=== PATIENT | female | born 1940 | race Caucasian/White ===

== ENCOUNTER 2016-08-05 13:38 | Emergency (ER) | payer MEDICARE ==
[~2016-08-05] VITALS: Wt 85.7 kg
[~2016-08-05 13:38] MED LIST: 50% Dextro25 GM/50 M IV; ADVAIR 250/501 EA INH; ALLERGY RELIEF10 M1; AMLODIPINE BESY1 TAB PO; AMLODIPINE10 MG; AMLODIPINE10 MG PO; ASCRIPTIN ENTER81 MG PO; ASPIRIN81 M1 PO; BUMETANIDE2 MG PO; BUMEX2 MG PO; CARVEDILOL6.25 MG; CATAPRES T0.3 MG/24 TD; CATAPRES-T0.1 MG/24 TD; CLARITIN10 MG PO; CLONIDINE0.2 MG; CLONIDINE0.2 MG PO; CLOPIDOGREL75 MG PO; COLACE100 MG PO; COREG6.25 MG PO; CRESTOR20 MG; CRESTOR20 MG PO; DETROL LA4 MG PO; DETROL1 MG PO; DIOVAN160 M1 PO; DULCOLAX10 MG R; DULCOLAX5 MG PO; DUONEB 3ML 3 MG/3 ML INH; ENALAPRIL20 MG PO; FERROUS SULFATE1 GRA; HYDROCODONE BIT1 T11 PO; LANTUS100 U/ML SC; LASIX20 MG; LASIX20 MG PO; LEVAQUIN250 MG PO; LEVEMIR100 U/ML SC; LISINOPRIL40 MG PO; LISINOPRIL5 MG PO; LORATADINE10 M1 PO; Lopressor25 MG PO; METOLAZONE2.5 MG PO; MIRALAX POWDER17 GM; MOM30 M1 PO; MORPHINE SULF2 MG/M1 IV; MUCINEX DM 30/61 TAB; MUCINEX DM 60 M1 TER PO; MULTIVITAMIN1 CTB PO; NORVASC10 MG PO; NORVASC5 MG PO; NOVOLOG1 UNIT/0.0 SC; OMEPRAZOLE10 MG PO; OMNICEF300 MG PO; PERCOCET 325 MG1 TA2 PO; PHOSLO667 M1 PO; PLAVIX75 MG PO; PRAVACHOL40 MG PO; PRILOSEC10 MG; PRILOSEC10 MG PO; PROAIR HFA0.09 MG/AC IH; PROAIR HFA0.09 MG/AC INH; PROTONIX40 MG PO; REGLAN10 MG PO; RESTORIL15 MG; RESTORIL15 MG PO; Rocaltrol0.25 MCG PO; TYLENOL325 M1 PO; TYLENOL650 MG R; VASOTEC10 MG PO; VITAMIN D1000 IU PO; VITAMIN D32000 I1 PO; ZAROXOLYN2.5 MG PO; ZEMPLAR1 MCG PO; ZOFRAN ODT4 MG SL; ZOFRAN2 MG/ML IV
[2016-08-05 13:42] VITALS: BP 153/80
[2016-08-05] MEDS ORDERED: NAPROSYN500 MG PO (14:13)
== END 2016-08-05 15:57 | disposition home or self-care (01) ==
LOC: ED 13:38
DX: S80.01XA Contusion of right knee, initial encounter (principal); R03.0 Elevated blood-pressure reading, without diagnosis of hypertension; N18.6 End stage renal disease; Z90.49 Acquired absence of other specified parts of digestive tract; Z90.710 Acquired absence of both cervix and uterus; Z98.890 Other specified postprocedural states; Z86.73 Personal history of transient ischemic attack (TIA), and cerebral infarction without residual deficits; Z79.82 Long term (current) use of aspirin; Z79.899 Other long term (current) drug therapy; W19.XXXA Unspecified fall, initial encounter; Y93.89 Activity, other specified; Y92.89 Other specified places as the place of occurrence of the external cause; Y99.9 Unspecified external cause status

== ENCOUNTER 2016-09-17 19:10 | Inpatient (IN) | payer MEDICARE ==
[~2016-09-17] VITALS: Ht 152.4 cm; Wt 74.4 kg
--- NOTE | ~2016-09-17 | CON ---
[place], [place] REPORT OF CONSULTATION NAME: YOSSI MULLINS UNIT #: [id number] ROOM: 424 DOCTOR: CAROL BOWDENWILDA BIRTHDATE: [birth year] DOS: 09/25/2016 HISTORY OF PRESENT ILLNESS: The patient has initially presented with suspected volvulus versus intussusception on radiologic findings, but clinically was unconvincing. However, the patient has been addressed and radiologic assessment was done initially. White blood cell was 13, H and H of 10 and 30, macrocytic indices. BUN and creatinine 35 and 5.4, GFR of 10. Liver function tests essentially unremarkable. Electrolytes borderline balanced. Arterial blood gases pH 7.4 plus. Lactic acid was 2.5, blood cultures were negative. CTA of the chest, significant artifact. CTA of the abdomen without contrast, small bowel, suspected intussusception was described, but however, there was not substantiated diffuse densities. High density liver could be secondary to hemochromatosis has been noticed. End-stage renal disease with renal cortical atrophy has been noticed. Serum ferritin 2691 consistent with possible hemochromatosis noticed. However, she is borderline anemic. Subsequent KUB of the abdomen, no evidence of intussusception. PAST MEDICAL HISTORY: Obesity, COPD, atrial fibrillation, respiratory insufficiency, diabetes mellitus, TIAs, CVA. PAST SURGICAL HISTORY: Hysterectomy, appendectomy, cholecystectomy. SOCIAL HISTORY: Nonsmoker, nonalcohol consumer any longer. FAMILY HISTORY: Noncontributory. ALLERGIES: To no known medications. MEDICATIONS: Medication list has been reviewed. REVIEW OF SYSTEMS: HEENT: Denies double vision, blurred vision. RESPIRATORY: Denies acute shortness of breath. CARDIOVASCULAR: Denies acute chest pain. DIGESTIVE SYSTEM: Initial nausea, initial abdominal distress, subsequent resolution of the above. No nausea, vomiting. Actually, she has had multiple bowel movements that have been normal. PHYSICAL EXAMINATION: HEENT: Head normocephalic, nontraumatic. Mouth and buccal mucosa benign. NECK: Supple, no thyromegaly. CHEST: Symmetric anatomy, equal expansion. No wheeze, no rhonchi. HEART: Atrial fibrillation, moderate ventricular response. ABDOMEN: Obese, soft. No hepato-organomegaly. Bowel sounds present. EXTREMITIES: No cyanosis, no pedal edema. NEUROLOGIC: Alert and oriented. LABORATORY DATA: Labs reviewed. Records reviewed. Data reviewed. IMPRESSION: Resolved suspected intussusception. The patient without nausea or [place], [place] REPORT OF CONSULTATION NAME: YOSSI MULLINS UNIT #: [id number] ROOM: [facility] DOCTOR: CAROL BOWDEN,WILDA BIRTHDATE: [birth year] vomiting, without bloody bowel movement, regular bowel movement a few times. Other adjunctive diagnoses as outlined in the paragraph of past medical and surgical history. Dense liver, suspected hemochromatosis, serum iron level has to be obtained. Serum ferritin has been extremely high. On the other hand, she is borderline anemic. No evidence of other infiltration of the main organs including pancreas was noticed. PLAN AND DISCUSSION: Supportive management. Feeding soft diet today and clinical reassessment. WILDA MEDINA MD CM:CONSTR:REPORT OF CONSULTATION 1727 09/26/16 1035 interface
--- NOTE | ~2016-09-17 | CON ---
[place], [place] REPORT OF CONSULTATION NAME: YOSSI MULLINS UNIT #: [id number] ROOM: 424 DOCTOR: KAVEH BOWDENANTIONEJOHN BIRTHDATE: [birth year] DOS: 09/19/2016 REQUESTING PHYSICIAN: Dr. Alba. REASON FOR CONSULTATION: Atrial fibrillation. ASSESSMENT: 1. Current presentation for shortness of breath, dyspnea on exertion. 2. Cough with evidence of elevated white count along with left shift. 3. Left lower lobe infiltrate on CT scan of the chest. 4. Large left pleural effusion. 5. History of transient ischemic attack and cerebrovascular accident. 6. Consult for new onset atrial fibrillation. 7. Recent echocardiogram showing normal ejection fraction read by Dr. Marcos. 8. Obesity. 9. Diabetes. 10. History of chronic obstructive pulmonary disease/emphysema. 11. End-stage renal disease, on dialysis. PLAN: 1. Cycle cardiac enzymes. 2. Proceed with echocardiogram. 3. Lexiscan stress test will be considered after patient recovers from her current pulmonary status. 4. Stop aspirin. 5. Continue with heparin. 6. Initiate Coumadin for target INR between 2 and 3. 7. Stop heparin when INR is over 2. 8. Lopressor 25 mg every6 hours with holding parameters. 9. Consider sleep study. 10. Antibiotics/ steroids were already given. HISTORY OF PRESENT ILLNESS: The patient is a pleasant 75-year-old female, unknown to our practice, who was referred by Dr. Alba for further evaluation of an incidental finding of atrial fibrillation. Apparently, the patient came in with shortness of breath, dyspnea on exertion, currently on a BiPAP with inability to talk and not much history was obtained. Most of the history I have heard was obtained from previous notes. On her current admission, the patient apparently was placed on BiPAP. Still, she is unable to communicate and difficult for her to talk. She is in the dialysis unit and 2 liters will be taken out hopefully today. Apparently, I by simple communication patient denies any chest pain, chest pressure, heaviness or tightness. No symptomatic palpitation. Decreased appetite. No significant weight change. The patient has a limited functional capacity, but overall stable prior to her current presentation. The patient admit to fever and chills. PAST MEDICAL HISTORY: As detailed in my assessment. SOCIAL HISTORY: No current tobacco, alcohol or illicit drug abuse. [place], [place] REPORT OF CONSULTATION NAME: YOSSI MULLINS UNIT #: [id number] ROOM: 424 DOCTOR: ROBBY LINN MD BIRTHDATE: [birth year] FAMILY HISTORY: Not applicable in view of patient's age. CURRENT MEDICATIONS: On presentation include Zocor, Percocet, mannitol, heparin, Procrit, vitamin D, aspirin, ____, nitroglycerin sublingual, Solu-Medrol, insulin, azithromycin, Rocephin, albuterol, Dulcolax and Tylenol. ALLERGIES: The patient has no known drug allergies. REVIEW OF SYSTEMS: Was not performed due to obvious reasons. PHYSICAL EXAMINATION: GENERAL: The patient is flat in bed on BiPAP, unable to communicate. VITAL SIGNS: Blood pressure 157/81, heart rate 104, respiratory rate of 24, temperature 98.3, T-max is 99.4. HEENT: Extraocular muscles intact. NECK: No bruit. HEART: S1, S2 with distant heart sounds. Holosystolic murmur at left upper sternal border with loud P2. CHEST AND BACK: Not examined. LUNGS: Significant decreased air movement, generalized wheezing. No lorrie rales. ABDOMEN: Obese, soft, nontender. Present bowel sounds. LOWER EXTREMITIES: There is mild edema. NEUROLOGIC: Grossly nonfocal. SKIN: No significant rash. LABORATORY DATA: Initial white count is 13.8, currently 20.8, INR 1.0. Potassium of 4.3, BUN 60, creatinine of 7, GFR is 6, calcium 8.0. Troponin less than 0.032. Electrocardiogram show atrial fibrillation with low voltage QRS, poor R-wave progression, nonspecific ST changes. ROBBY LINN MD CM:CONSTR:REPORT OF CONSULTATION 1147 09/20/16 0237 interface
--- NOTE | ~2016-09-17 | PR ---
[place], [place] PROGRESS NOTE NAME: YOSSI MULLINS UNIT #: [id number] ROOM: 424 DOCTOR: MAYA CHEUNG MD,NELSON BIRTHDATE: [birth year] DOS: 09/19/2016 PULMONARY PROGRESS NOTE SUBJECTIVE: She has been still noted with coughing and shortness of breath and wheezing, which was noted audible. The patient has been using the BiPAP as advised. Denies any symptoms of chest pain or hemoptysis. OBJECTIVE: VITAL SIGNS: Temperature currently noted normal, this is noted to be 100.4 degrees Fahrenheit, her respiratory rate was recorded at 20-24, heart rate of 104-88, blood pressure 175/92 to 157/81. The intake for the patient recorded 610 mL, the output of 400 mL. Pulse oxygen saturation 35% BiPAP was 98% saturation. HEENT: Examination shows no acute change. NECK: Supple. CARDIOVASCULAR: S1, S2 audible. LUNGS: Noted with moderate reduced breath sounds with expiratory wheezing and mild basilar crackles. ABDOMEN: Soft, nontender. LABORATORY DATA: BMP of the patient that was done on 09/19/2016, shows BUN 60, creatinine 7.03. Chest x-ray yesterday still noted with small pleural fluid and left lower lobe infiltration. The chest x-ray of the patient that was done this morning shows no new changes for the patient, the changes remain the same as previously. Arterial blood gas that was done this morning shows pH of 7.39, pCO2 of 48.5, pO2 of 93 on 5 L nasal cannula. The troponin for the patient noted as normal. IMPRESSION: The patient who has been currently treated in the hospital for the medical management of acute hypoxic respiratory failure, acute congestive heart failure with exacerbation of chronic obstructive pulmonary disease. Pleural fluid for the patient was still noted, possibility of pneumonia in the left lower lobe versus atelectasis cannot be completely excluded. PLAN OF TREATMENT: Continuation of the current therapy, plan of management. Use of the BiPAP, oxygen supplementation, bronchodilators and IV Solu-Medrol of the same dose. Monitor her respiratory status closely, continue the BiPAP as previously as well. Monitor chest x-ray of the patient and clinical assessment be continued. [place], [place] PROGRESS NOTE NAME: YOSSI MULLINS UNIT #: [id number] ROOM: 424 DOCTOR: NELSON JENKINS MD BIRTHDATE: [birth year] NELSON TREJO MD CM:PNTRANS [phone] NELSON CHEUNG MD 09/21/16 0007 interface
--- NOTE | ~2016-09-17 | PR ---
[place], [place] PROGRESS NOTE NAME: YOSSI MULLINS UNIT #: [id number] ROOM: 424 DOCTOR: ITA SIMONAUGUST BIRTHDATE: [birth year] DOS: 09/26/2016 SUBJECTIVE: The patient is a 75-year-old female who was originally on Rocephin for possible pneumonia. She is off all antibiotics now. She had a CT of the abdomen and pelvis on the , which only showed a little atelectasis on her left base. Her chest x-ray is fairly clear. She is off all antibiotics at this point. She states her breathing is better, has a little nonproductive cough. No fever or chills. No nausea, vomiting or diarrhea. No rash or itch. No pain currently. LABORATORY DATA: All of her blood cultures are negative. WBC 16.5, platelets 235. Bronch only showed oral arnav. CURRENT MEDICATIONS: Include Cardizem, heparin, Lopressor, Zocor, vitamin D, Protonix, Solu-Medrol, Levemir, Mucinex, Humalog, DuoNeb, and Zofran. PHYSICAL EXAMINATION: VITAL SIGNS: Show temperature 98.3, pulse 82, respirations 18, BP 130/67. GENERAL: A 75-year-old female, in no acute distress. HEENT: Normocephalic. No thrush. LUNGS: Clear to auscultation bilaterally. Respirations even and unlabored. HEART: Regular rhythm. No murmur appreciated. ABDOMEN: Soft, nontender. EXTREMITIES: Trace edema bilateral lower extremities. No cellulitis. SKIN: Warm, dry, free of rashes. ASSESSMENT AND PLAN: Leukocytosis, probably due to the Solu-Medrol. Scans failed to demonstrate any pneumonia. She is doing fairly well off of antibiotics. AUGUST [facility] JEAN BAPTISTE [place], [place] PROGRESS NOTE NAME: YOSSI MULLINS UNIT #: [id number] ROOM: 424 DOCTOR: ITA SIMONAUGUST BIRTHDATE: [birth year] BON THORNTON MD CM:KALI [id number] [facility] 09/28/16 0123 interface
--- NOTE | ~2016-09-17 | PR ---
[place], [place] PROGRESS NOTE NAME: YOSSI MULLINS UNIT #: [id number] ROOM: 424 DOCTOR: NELSON JENKINS MD BIRTHDATE: [birth year] DOS: 09/21/2016 PULMONARY PROGRESS NOTE SUBJECTIVE: She has been noted without any new changes. Continued to have symptoms of shortness of breath with nonproductive cough and wheezing. She has been using the BiPAP intermittently with oxygen supplementation other times. Continued bronchodilators, oxygen supplementation and corticosteroids. OBJECTIVE: VITAL SIGNS: For the patient which was recorded shows normal temperature, respiratory rate 20, heart rate 81, blood pressure 178/78 to 134/74 pulse oxygen saturation rather recorded on 4 liters nasal cannula was 96% saturation. HEENT: No new change. NECK: Supple. CARDIOVASCULAR: S1, S2 audible. LUNGS: Noted with moderate decreased breath sounds, diffuse expiratory wheezing remains present. ABDOMEN: Soft, nontender. LABORATORY DATA: BMP today, glucose 125, BUN 72, creatinine 6.85, potassium 5.5. CBC this morning, WBC count 13.5, hemoglobin 10.7, hematocrit 33.8, platelet count was normal. PT/INR was noted 1.4, which is subtherapeutic. IMPRESSION: 1. Persistent acute exacerbation of chronic obstructive pulmonary disease with acute tracheobronchitis of the patient. 2. End-stage renal failure, on hemodialysis with mild hyperkalemia related to the end-stage renal failure. 3. Chronic obesity. 4. Congestive heart failure for the patient, which has been resolving. 5. Acute hypoxic respiratory failure as well. 6. Possibility of pneumonia in left lower lobe as well. PLAN OF TREATMENT: The patient was assessed for bronchoscopy with consideration for patient to be done tomorrow morning. The risks and benefits of procedure were discussed with the patient. This will help to improve respiratory status of the patient, especially the cough which has been noted nonproductive and wheezing with current maximum medical therapy. Mucus plug will be removed. [place], [place] PROGRESS NOTE NAME: YOSSI MULLINS UNIT #: [id number] ROOM: 424 DOCTOR: NELSON JENKINS MD BIRTHDATE: [birth year] NELSON TREJO MD CM:KALI [id number] NELSON CHEUNG MD 09/22/16 0714 interface
--- NOTE | ~2016-09-17 | PR ---
[place], [place] PROGRESS NOTE NAME: YOSSI MULLINS UNIT #: [id number] ROOM: 424 DOCTOR: JAEC BOWDEN,JULIO BIRTHDATE: [birth year] DOS: 09/28/2016 REASON FOR VISIT: Atrial fibrillation. SUBJECTIVE: The patient denies any chest pain or shortness of breath. No palpitations. No dizziness. No orthopnea. No fever and chills. No cough. Her breathing is somewhat better of still having some wheezing. REVIEW OF SYSTEMS: Review of the 8 systems negative except as mentioned above. PHYSICAL EXAMINATION: VITAL SIGNS: Blood pressure 124/74, pulse 87, respiration rate 20. GENERAL: Alert, comfortable, in no acute distress, sitting in the chair. HEENT: Pupils are round and equal. No jaundice. Tongue is moist and pharynx is clear. NECK: Supple, no distended neck veins. No carotid bruit. CHEST: Nontender. LUNGS: Few scattered rhonchi with minimal expiratory wheeze. HEART: Irregularly irregular, no S3, grade 1/6 systolic murmur. ABDOMEN: Obese, nontender. EXTREMITIES: Showed positive for edema and distal pulses are fair. SKIN: Warm and dry. No cyanosis, no clubbing. NEUROLOGIC: The patient is alert, oriented. No focal neurologic deficit. DIAGNOSTIC TESTS: Review of the diagnostic test. Rhythm strips reviewed. INR 1.6, creatinine 4.6. IMPRESSION: 1. Chronic diastolic heart failure, better, currently euvolemic. 2. Atrial fibrillation, new onset, rate controlled. Keep INR between 2-3. 3. Chronic obstructive pulmonary disease. 4. End-stage renal disease. 5. Obesity. RECOMMENDATIONS: 1. Continue current medications. 2. She can be discharged from the cardiac standpoint. 3. Keep the INR between 2-3. 4. Follow up with [facility] in 1-2 weeks after discharge. [place], [place] PROGRESS NOTE NAME: YOSSI MULLINS UNIT #: [id number] ROOM: 424 DOCTOR: JULIO MCCORMICK MD BIRTHDATE: [birth year] JULIO MCCORMICK MD CM:KALI [id number] JULIO MCCORMICK MD 09/29/16 1908 interface
--- NOTE | ~2016-09-17 | PR ---
[place], [place] PROGRESS NOTE NAME: YOSSI MULLINS UNIT #: [id number] ROOM: 424 DOCTOR: KADEN FUNK MD BIRTHDATE: [birth year] DOS: 09/27/2016 CARDIOLOGY PROGRESS NOTE SUBJECTIVE: The patient was seen at her bedside today 09/27/2016 for followup of her atrial fibrillation and diastolic heart failure. She is resting comfortably and breathing easily. She continues to be evaluated for abdominal and back problems. Her fluid balance; however, appears to be normal now and she is breathing better even though she still does have some wheezing. Her anticoagulation has been variable. On 09/23/2016, she was therapeutic with her INR at 2.3. By 09/26/2016, she was up to 9.6. She was given a single dose of vitamin K 5 mg p.o. and today, her INR is 1.3. I have a hard time understanding how her INR could jump up so high and then dropped so quickly with a single dose of vitamin K, but in any case, we are resuming her warfarin today. PHYSICAL EXAMINATION: VITAL SIGNS: Her pulse is 100 and irregularly irregular, blood pressure 152/56. She is afebrile. NECK: Supple. She has no jugular distention. Carotids are full. I heard no bruits. She had no neck or supraclavicular masses. LUNGS: Respirations are unlabored. She has mild expiratory prolongation and a few scattered wheezes. There is no presacral edema and she has no rales. HEART: Has an irregularly irregular rhythm without murmurs or gallops. EXTREMITIES: Showed no edema. IMPRESSION: 1. New-onset atrial fibrillation. The patient is being treated with anticoagulation and rate control. 2. Warfarin toxicity, resolved. Warfarin is being resumed today. 3. Admission with marked fluid overload. The patient's fluid balance has been rectified with aggressive dialysis. 4. Reactive airways disease, which is improving with aggressive pulmonary management. PLAN: We will continue to observe her while she is in the hospital. We thank Dr. Alba for asking our advice regarding her care. [place], [place] PROGRESS NOTE NAME: YOSSI MULLINS UNIT #: [id number] ROOM: 424 DOCTOR: KADEN FUNK MD BIRTHDATE: [birth year] KADEN FUNK MD CM:PNTRANS [id number] KADEN FUNK MD 09/28/16251 interface
--- NOTE | ~2016-09-17 | PR ---
[place], [place] PROGRESS NOTE NAME: YOSSI MULLINS UNIT #: [id number] ROOM: 424 DOCTOR: NORBERTO BOWDEN,BON Bernal BIRTHDATE: [birth year] DOS: 09/26/2016 ADDENDUM I agree with the above plans as outlined in the Infectious Disease note. We will follow the patient up clinically and adjust accordingly. BON THORNTON MD CM:PNTRANS 7 BON THORNTON MD 09/28/1658 interface
--- NOTE | ~2016-09-17 | PR ---
[place], [place] PROGRESS NOTE NAME: [facility]INS [id number] UNIT #: [id number] ROOM: 424 DOCTOR: MAYA CHEUNG MD,NELSON BIRTHDATE: [birth year] DOS: 09/28/2016 SUBJECTIVE: The patient remains in the hospital for the weekend. She has not been noted with any ongoing acute complaints for the patient. The coughing and wheezing and shortness of breath continue to improve progressively. There were no symptoms of chest pain. OBJECTIVE: VITAL SIGNS: Noted normal temperature, respiratory rate 20, heart rate of 95, blood pressure 124/74. The pulse oxygen saturation of the patient on 2 liter nasal cannula is 100% saturation. HEENT: Showed no new changes. CARDIOVASCULAR: S1, S2 audible. LUNGS: The patient is noted without any crackles. There are no wheezing. Breaths are noted mild to moderate decreased bilaterally. ABDOMEN: Soft, nontender. LABORATORY DATA: The patient's INR noted as 1.6. Ultrasound of the liver for the patient, which was done on 09/25/2016 was noted slightly irregular contour for the patient of the liver. IMPRESSION: Stable respiratory status was noted for this patient at the present time with resolved acute tracheobronchitis, improving acute exacerbation of chronic obstructive pulmonary disease as well as a resolving acute hypoxic respiratory failure with gradual reduction in the oxygen requirement. PLAN OF TREATMENT: Reduce the Solu-Medrol dose to 30 mg daily for this patient at this time. Continuation of bronchodilators and oxygen supplementation. Leukocytosis, the patient was noted induced most likely by the steroids at the present time. No further addition of changes in the treatment otherwise will be needed. NELSON TREJO MD CM:PNTRANS [id number] NELSON CHEUNG MD 09/29/16 0039 interface
--- NOTE | ~2016-09-17 | PR ---
[place], [place] PROGRESS NOTE NAME: YOSSI MULLINS UNIT #: [id number] ROOM: 424 DOCTOR: NELSON JENKINS MD BIRTHDATE: [birth year] DOS: 09/22/2016 PULMONARY PROGRESS NOTE SUBJECTIVE: She was still noted with significant coughing, which remained with wheezing and shortness of breath. Denies symptoms of chest pain or any abdominal pain. OBJECTIVE: VITAL SIGNS: For the patient was noted as normal temperature, respiratory rate of 18, heart rate of 65, blood pressure 145/61. Pulse oxygen saturation noted on 3 liter nasal cannula 97% saturation. HEENT: Examination showed no acute change. NECK: Supple. CARDIOVASCULAR SYSTEM: S1, S2 audible. LUNGS: Shows moderate decreased breath sounds persistent with expiratory wheezing, no crackles. ABDOMEN: Soft, nontender. LABORATORY DATA: CBC: WBC count 13.6, hemoglobin 10.9, hematocrit 35.1, platelet count 291,000. The INR was noted 1.9, subtherapeutic. TSH was noted as normal. The renal function panel today, BUN 96, creatinine 8.33. Potassium 6.0. IMPRESSION: The patient with persistent ongoing acute exacerbation of chronic obstructive pulmonary disease with basilar area of atelectasis, infiltration for this patient, chronic anticoagulation, end-stage renal failure on hemodialysis as well as acute hypoxic respiratory failure. PLAN OF TREATMENT: No changes in plan of management. Continue the patient on current plan of therapy as in progress. The bronchodilators to be continued. Proceed with bronchoscopy. The anticoagulation will be resumed today after the bronchoscopy if there was no complication with the procedure. Continue hemodialysis per plan. [place], [place] PROGRESS NOTE NAME: YOSSI MULLINS UNIT #: [id number] ROOM: 424 DOCTOR: NELSON JENKINS MD BIRTHDATE: [birth year] NELSON TREJO MD CM:PNTRANS [phone] NELSON CHEUNG MD 09/23/16 0327 interface
--- NOTE | ~2016-09-17 | CON ---
[place], [place] REPORT OF CONSULTATION NAME: [facility]SI [facility]INS [id number] UNIT #: [id number] ROOM: 424 DOCTOR: MAYA CHEUNG MD,NELSON BIRTHDATE: [birth year] DOS: 09/18/2016 PULMONARY CONSULTATION EVALUATION AND MANAGEMENT NOTE CONSULTATION REQUESTED BY: Dr. Saurav Alba. REASON FOR CONSULTATION: To assess the patient for acute respiratory symptom. HISTORY OF PRESENT ILLNESS: This is a 75-year-old white female who presented to the Emergency Room the patient and was hospitalized for the patient on 09/17/2016. The patient presented to the Emergency Room as she has been noted with symptoms of getting progressive increased shortness of breath. The shortness of breath has been noted progressive in the last couple of days. The patient was also noted with the symptoms of chest congestion and cough. Denies any symptoms of hemoptysis or any chest pain. The wheezing for the patient was also described intermittently. She has been admitted to the hospital for further medical management for this patient of acute exacerbation of COPD and other medical illnesses. REVIEW OF SYSTEMS: CONSTITUTIONAL SYMPTOMS: The patient was noted with symptoms of fatigue and tiredness. Denies any symptoms of fever or chills. EYES: Denies any burning, redness, or tenderness. EARS, NOSE, THROAT SYMPTOMS: No sore throat, hoarseness, otalgia, postnasal drainage. CARDIOVASCULAR SYSTEM: Denies anginal pain, edema of the lower extremities. GASTROINTESTINAL SYMPTOMS: Denies dysphagia, nausea, vomiting, diarrhea, abdominal pain, hematemesis, melena at the present time. All the symptoms for the patient nausea, vomiting for this patient, which has been noted previously has been resolved for the patient since 09/15/2016. GENITOURINARY SYMPTOMS: Denies dysuria, suprapubic pain, hematuria. MUSCULOSKELETAL SYMPTOMS: Denies acute joint pain, redness, or tenderness. SKIN: Denies lesions or rashes. CENTRAL NERVOUS SYSTEM: No dizziness, headache, diplopia, syncopal episodes, seizures. Remaining systems were reviewed with the patient, they were noted all negative. PAST MEDICAL HISTORY: Reported with history of: 1. Centrilobular emphysema. 2. Bronchial asthma, severity unknown. 3. History of congestive heart failure, diastolic or systolic, unknown. 4. End-stage renal failure, on hemodialysis. 5. History of gastroesophageal reflux. 6. Chronic obesity. PAST SURGICAL HISTORY: 1. Complete hysterectomy. 2. Appendectomy. 3. Cardiac catheterization. [place], [place] REPORT OF CONSULTATION NAME: YOSSI MULLINS UNIT #: [id number] ROOM: [facility] DOCTOR: MAYA CHEUNG MD,NELSON BIRTHDATE: [birth year] 4. Cholecystectomy. 5. Dialysis catheter insertion. 6. Left eye surgery. SOCIAL HISTORY: The patient stated that she has been a smoker in the past. The smoking cessation was done 20 years ago, used to smoke 2 packs of cigarettes per day. Denies history of alcohol use or any illicit drug use. FAMILY HISTORY: The patient's father at 76 years old from unknown medical illnesses. Mother at the age 7070 years old from complication of diabetes mellitus. HOME MEDICATIONS: Noted use of DuoNeb, Norvasc, aspirin, vitamin D, clonidine, Levemir insulin, loratadine, metoprolol tartrate, naproxen, Protonix, and pravastatin. ALLERGIES: The patient drug allergy noted as no known drug allergies. PHYSICAL EXAMINATION: GENERAL: A 75 years old female who has been currently noted awake and alert without any distress using the BiPAP, height of 5 feet, weight of 186 pounds, BMI 36.3. VITAL SIGNS: Temperature noted 100.4 degree Fahrenheit, normal temperature. The respiratory rate 36-24. Heart rate of 100-104. Blood pressure 149/110-156/74. Pulse oxygen saturation noted on 4 L nasal cannula 98% saturation on admission, room air 75% oxygen. HEENT: Examination shows head was atraumatic. Eyes nonicterus. Chronic obesity. Edentulous status. NECK: Supple, short and obese. CARDIOVASCULAR SYSTEM: S1, S2 audible. LUNGS: The patient was noted with decreased breath sounds noted in the lungs bilaterally. Scattered crackles of the lungs for the patient were noted as well. Expiratory wheezing present bilaterally. ABDOMEN: Soft, obese, nontender. EXTREMITIES: Showed no edema, clubbing, cyanosis. CENTRAL NERVOUS SYSTEM: Cranial nerves 2-12 intact. No focal deficit. MUSCULOSKELETAL SYMPTOMS: No deformities. SKIN: No lesions or rashes. LABORATORY DATA: PT, PTT for this patient was noted normal on 09/17/2016 on admission. BMP, 09/17/2016 on admission showed BUN of 26, creatinine 4.40, glucose 246. CO2 of 95. ProBNP was elevated. Troponin and CPK were normal. PT/PTT for the patient on 08/18/2016 was normal. PT, PTT on 09/17/2016 was normal. CBC on 09/17/2016 on admission, WBC count 20.8, hemoglobin 11, hematocrit 37.1, platelet count was normal, 93% segmented neutrophils. The CBC this morning, WBC count 13.8, hemoglobin 10.7, hematocrit 33.0, platelet count of 271,000, 98% segmented neutrophils. CMP this morning, BUN 35, creatinine 5.41, glucose 257, potassium 5.4, chloride of 94. Arterial blood gas of the patient on 09/18/2016, pH of 7.42, pCO2 of 46, pO2 of 99 on the BiPAP was noted. Lactic acid was elevated as 2.4 this morning. Troponins were noted normal this [place], [place] REPORT OF CONSULTATION NAME: YOSSI MULLINS UNIT #: [id number] ROOM: [facility] DOCTOR: MAYA CHEUNG [facility] BIRTHDATE: [birth year] morning as well. One view chest x-ray of the patient that was reviewed for the patient done on admission 09/17/2016 in the Emergency Room for the patient was noted with finding consistent with congestive heart failure of the patient with a small pleural fluid, cardiomegaly was visible. Possibility of infiltration in the right perihilar area cannot be completely excluded versus prominent right hilar area. IMPRESSION: 1. The patient who has been currently admitted to the hospital with acute hypoxic respiratory failure was noted as a result of the congestive heart failure and possible concomitant acute exacerbation of chronic obstructive pulmonary disease and bronchial asthma. 2. Bilateral pleural fluid of the patient secondary to the above. 3. End-stage renal failure, hemodialysis 3 times a week as well. 4. Severe chronic obesity as well. 5. History of type 2 diabetes mellitus, uncontrolled with further hyperglycemia noted use of the corticosteroids. PLAN OF TREATMENT: Continue the use of the BiPAP for the patient as ordered. Bronchodilator to be continued. Continue current dose of Solu-Medrol and the antibiotic. Further change in treatment will be done based on the progression of the illness. Sputum for gram stain culture has been already ordered, which was pending. The patient expectorate sputum sent for cultures. All other supportive plan of management, therapy. Further treatment changes done based on progression of the illness. Repeat chest x-ray of the patient in the morning. The patient to reassess. Thanks for allowing me to participate in the care of this patient. NELSON TREJO MD CM:CONSTR:REPORT OF CONSULTATION 1132 09/19/16 0404 interface
--- NOTE | ~2016-09-17 | PR ---
[place], [place] PROGRESS NOTE NAME: [id number] UNIT #: [id number] ROOM: 424 DOCTOR: JON HIGUERA MD BIRTHDATE: [birth year] DOS: SUBJECTIVE: The patient has been admitted to hospital with lightheadedness, dizziness and shortness of breath. She is feeling better from these symptoms, but today she is complaining of some pain in the abdomen. She says she has not had bowel movement for 4-5 days and that maybe the reason. There is no tenderness of the abdomen. Bowel sounds are normal and no mass palpable. Ultrasound of the liver was performed and demonstrates slight irregularity, but it could not be seen clearly, absent gallbladder. Protime today is 114. INR is 1.3 better as her protime yesterday was 118.2, INR of 9.6. CBC shows some hypochromic anemia with white count of 16,500, hemoglobin 11.4, hematocrit 35.6. The patient has been seen by Dr. Clements and his impression is the patient is having some constipation. He just advised to have a supporting treatment and no acute intervention was advised by him. OBJECTIVE: VITAL SIGNS: Blood pressure is 152/56, pulse 85, respirations 20, temperature 97.2. HEART: Regular. CHEST: Having few rhonchi. ABDOMEN: There is no tenderness. I will order patient . JON HIGUERA MD CM:PNTRANS [phone] JON HIGUERA MD 09/27/162050 interface
--- NOTE | ~2016-09-17 | PR ---
[place], [place] PROGRESS NOTE NAME: [facility] [id number] UNIT #: [id number] ROOM: 424 DOCTOR: JON HIGUERA MD BIRTHDATE: [birth year] DOS: 09/20/2016 SUBJECTIVE: She is feeling better today that she is breathing better. She is conscious, alert, and oriented and in fact she is smiling and quite cheerful today and stated that she is feeling much better than yesterday. She is still having some wheezing in the lung with shortness of breath and she ate her lunch very comfortably and she has been seen by electrical high tension tester, ____ and she has been advised by her echocardiogram and stress test with cyclic cardiac enzymes and has advised she put on Coumadin for atrial fibrillation, and Lopressor 25 mg q. 6 hours and continue with the present treatment of antibiotic and steroid. The patient has multiple medical problems with shortness of dyspnea on exertion, cough and elevated white count with large left pleural effusion, history of TIA in the past, diabetes mellitus, uncontrolled and chronic renal failure on dialysis. Protime today is 10.7. OBJECTIVE: VITAL SIGNS: Blood pressure is 155/81, pulse 69, respirations 20, temperature 98.2. HEART: Irregular. CHEST: Showing few rhonchi with crepitation. ABDOMEN: Soft. Liver and spleen not palpable. Some 1+ edema of leg. The patient can move all the 4 limbs without any problem. She is showing some improvement. ____ to follow. JON HIGUERA MD CM:PNTRANS [phone] JON HIGUERA MD 09/21/16 0408 interface
--- NOTE | ~2016-09-17 | PR ---
[place], [place] PROGRESS NOTE NAME: YOSSI MULLINS UNIT #: [id number] ROOM: 424 DOCTOR: NELSON JENKINS MD BIRTHDATE: [birth year] DOS: 09/20/2016 SUBJECTIVE: The patient was seen and examined on 09/20/2016. She was still noticing symptoms of chest congestion and cough. Sputum expectoration of the patient was noted as limited. The patient denies any symptoms of hemoptysis. She was continued on the BiPAP for oxygen supplementation. OBJECTIVE: VITAL SIGNS: For the patient which has been recorded shows the temperature recorded as normal. The respiratory rate 20, heart rate of 52, blood pressure 156/____-144/83. The pulse oxygen saturation on 3 liters canula 98% saturation recorded. HEENT: Examination shows no new change. NECK: Supple. CARDIOVASCULAR: S1, S2 audible. LUNGS: Expiratory wheezing in the lung was noted bilaterally. ABDOMEN: Soft, nontender and obese. EXTREMITIES: Shows no new changes. LABORATORY DATA: INR today was noted 1.0, which is subtherapeutic. IMPRESSION: 1. The patient with persistent acute hypoxic respiratory failure as a result of acute exacerbation of chronic obstructive pulmonary disease/bronchial asthma as well as the congestive heart failure for this patient. 2. Small bilateral pleural fluid. 3. Persistent symptoms of coughing, which remains nonproductive. 4. Inability to expectorate any sputum. PLAN OF TREATMENT: ____. If this will be noted ineffective for the patient to expectorate sputum, she will be considered for fiberoptic bronchoscopy. In the meantime for this patient, continue all previous treatment therapy, plan of management including the use of the BiPAP. Supportive care. [place], [place] PROGRESS NOTE NAME: YOSSI MULLINS UNIT #: [id number] ROOM: 424 DOCTOR: NELSON JENKINS MD BIRTHDATE: [birth year] NELSON TREJO MD CM:PNTRANS [phone] NELSON CHEUNG MD 09/21/16 0919 interface
--- NOTE | ~2016-09-17 | PR ---
[place], [place] PROGRESS NOTE [id number] UNIT #: [id number] ROOM: 424 DOCTOR: MAYA CHEUNG MD,NELSON BIRTHDATE: [birth year] DOS: 09/25/2016 PULMONARY PROGRESS NOTE SUBJECTIVE: From the pulmonary standpoint, the patient continues to do very well at the present time. She has not been noted with symptoms of chest pain or any abdominal pain. The shortness of breath, coughing and wheezing of the patient has been gradually resolving. OBJECTIVE: VITAL SIGNS: For the patient which were recorded shows normal temperature, respiratory rate 20, heart rate 79, blood pressure 158/70-115/64. Pulse oxygen saturation of the patient recorded on 2 liters nasal cannula 100% saturation at this time. HEENT: Examination shows head was atraumatic. Eyes nonicterus. NECK: Supple. CARDIOVASCULAR: S1, S2 audible with questionable wheezing, no crackles. Improvement in air entry was noted. ABDOMEN: Soft, nontender. EXTREMITIES: Shows no new changes. LABORATORY DATA: CMP of the patient this morning, BUN 41, creatinine 4.61. CBC this morning, WBC count 14.6, hemoglobin and hematocrit normal, platelet count was normal. IMPRESSION: The patient with progressive resolution of the acute hypoxic respiratory failure with acute exacerbation of chronic obstructive pulmonary disease for this patient. Some GI problem of the patient, which has been currently assessed by the primary care physician. The workup was noted in progress including ultrasound of the abdomen and the patient has been ordered additional testing later on for the GI tract. The workup to be done for this patient and monitored by the primary care physician and screen printing inspector. NELSON TREJO MD CM:PNTRANS [phone] NELSON CHEUNG MD 09/26/16510 interface
--- NOTE | ~2016-09-17 | PR ---
[place], [place] PROGRESS NOTE NAME: YOSSI MULLINS UNIT #: [id number] ROOM: 424 DOCTOR: MAYA CHEUNG MD,NELSON BIRTHDATE: [birth year] DOS: 09/24/2016 SUBJECTIVE: She has been noted comfortable at this time receiving hemodialysis at this time. Denies symptoms of chest pain or abdominal pain. Coughing, chest congestion, and shortness of breath has been gradually resolving. OBJECTIVE: VITAL SIGNS: Normal temperature, respiratory rate 20, heart rate 83, blood pressure 136/40. The pulse oxygen saturation of the patient recorded as 99% saturation on room air. HEENT: Examination shows no acute change. NECK: Supple. CARDIOVASCULAR: S1, S2 audible. LUNGS: The patient was noted without any wheezing or crackles. ABDOMEN: Soft, nontender. IMPRESSION: 1. The patient with gradual resolution of the acute exacerbation of chronic obstructive pulmonary disease and acute tracheobronchitis. 2. Resolving respiratory failure of the patient progressively. 3. End-stage renal failure, on hemodialysis. PLAN OF TREATMENT: I recommended strongly for this patient for jail facility placement because of severe illness, which has been gradually improving for further care. In the meantime, continue other therapy, plan and management as in progress. Usual care. Supportive therapy, plan of management and other care. Usual treatments. NELSON TREJO MD CM:PNTRANS 1409 NELSON CHEUNG MD 09/25/16 0256 interface
--- NOTE | ~2016-09-17 | PR ---
[place], [place] PROGRESS NOTE NAME: YOSSI MULLINS UNIT #: [id number] ROOM: 424 DOCTOR: KADEN FUNK MD BIRTHDATE: [birth year] DOS: 09/26/2016 SUBJECTIVE: The patient was seen at her bedside today for followup of her atrial fibrillation with rapid ventricular response. This is of new onset and we have been treating her thus far with rate control and anticoagulation. We debated whether she should be anticoagulated; however, she has a CHADS-VASc score of 8, which predicts a very high risk for cardioembolic phenomena and therefore despite her dialysis. We have placed her on warfarin. Last evening, she was noted to have a rapid heart rate response to exertion. I placed her on low dose of diltiazem and her vital signs seem much more stable today. PHYSICAL EXAMINATION: VITAL SIGNS: Today, her pulse is 74 and irregularly irregular, blood pressure 124/50. She is afebrile. She weighs 73.0 kilograms with a body mass index of 31.4. HEENT: Normocephalic, atraumatic. NECK: Supple. She has no jugular distention. Carotids are full. LUNGS: Respirations are unlabored. She still has a few wheezes, especially after cough. She has no presacral edema and no rales. HEART: Has an irregularly irregular rhythm without murmurs or gallops. ABDOMEN: Soft and normoactive. EXTREMITIES: Showed no edema. IMPRESSION: 1. New onset atrial fibrillation. The patient is being treated with anticoagulation and rate control. 2. Warfarin toxicity, INR today is 9.6; this will need to be readjusted. 3. Admission with marked fluid overload. The patient's fluid balance has been rectified with aggressive dialysis. 4. Reactive airways disease. This is improving with aggressive pulmonary management. PLAN: We will withhold her warfarin and readjust the dose to maintain an INR between 2 and 3. No other change in cardiac management at this time is indicated. I thank Dr. Alba for asking our advice regarding her care. [place], [place] PROGRESS NOTE NAME: YOSSI MULLINS UNIT #: [id number] ROOM: 424 DOCTOR: KADEN FUNK MD BIRTHDATE: [birth year] KADEN FUNK MD CM:PNTRANS [phone] KADEN FUNK MD 09/27/16 1132 interface
--- NOTE | ~2016-09-17 | PR ---
[place], [place] PROGRESS NOTE [id number] UNIT #: [id number] ROOM: 424 DOCTOR: JON HIGUERA MD BIRTHDATE: [birth year] DOS: 09/19/2016 SUBJECTIVE: The patient has been admitted to the hospital with respiratory failure with end-stage renal failure on hemodialysis 3 times a week, chronic, due to her diabetes mellitus, severe chronic obesity. She was admitted with acute respiratory failure with congestive heart failure with bilateral pleural effusion and end-stage renal failure with acute exacerbation. Her troponin level is 0.32, which is normal. Blood culture and sensitivity did not grow any bacteria. Basic metabolic profile today showed glucose 91, BUN 67.03, GFR 6. Chest x-ray done today shows no significant change. CTA chest shows significant artifact from the patient's arm. Artifact from the relative venous opacification imaging is ____ motion with resultant artifact. The best possible images were obtained, no evidence of central pulmonary embolism, mild interstitial prominence to the lung suspicious for mild pulmonary edema. Air space and pleurodesis in left base mildly progressive. Her blood pressure is 157/81, pulse is 104, respirations 24, temperature 98.3. The patient is definitely having difficulty in breathing, having bilateral rhonchi and crepitations in both the lungs and at present she is getting aerosol treatment and she is on BiPAP. The patient is continuously getting hemodialysis with a lot of supportive treatment and is being seen by Dr. Pleitez and we will continue with the present treatment along with the BiPAP treatment and supportive treatment for her respiratory depression. JON HIGUERA MD CM:PNTRANS [phone] JON HIGUERA MD 09/20/16 7878 interface
--- NOTE | ~2016-09-17 | PR ---
[place], [place] PROGRESS NOTE NAME: YOSSI MULLINS UNIT #: [id number] ROOM: 424 DOCTOR: NELSON JENKINS MD BIRTHDATE: [birth year] DOS: 09/23/2016 PULMONARY PROGRESS NOTE SUBJECTIVE: She has been noted comfortable at this time. Bronchoscopy was done for the patient yesterday for the patient with reduction of the respiratory symptoms noted. The coughing has been decreased, but not completely resolved. Denies any symptoms of chest pain at present time. Shortness of breath of the patient noted somewhat decreased. The wheezing was also improving. OBJECTIVE: VITAL SIGNS: For the patient which were recorded shows the temperature of the patient noted as normal. The respiratory rate of the patient recorded as 20, heart rate of 62, blood pressure 170/74-161/74. Pulse oxygen saturation on 3 liters nasal canula 98% saturation recorded. HEENT: Examination shows no acute change. CARDIOVASCULAR SYSTEM: S1, S2 audible. LUNGS: Noted with scattered expiratory wheezing, improvement noted from previous examination with improving the air entry as well. ABDOMEN: Soft, nontender. LABORATORY DATA: Gram stain bronchial washing 09/22/2016, many white blood cells, moderate epithelial cells, rare gram-positive cocci in pairs. Preliminary culture showing normal arnav, final culture results were pending. The renal function panel for the patient this morning, BUN 50, creatinine 5.34, glucose 104. Stool for occult blood was noted as positive for the patient on 09/22/2016. PT/INR this morning was noted 2.3, which is therapeutic. IMPRESSION: 1. The patient who has been currently noted with status post bronchoscopy for the patient with the reduction of respiratory symptoms with improving acute hypoxic respiratory failure gradually with exacerbation of chronic obstructive pulmonary disease. 2. End-stage renal failure on hemodialysis. PLAN OF TREATMENT: No changes in the plan of management. From the pulmonary standpoint, the patient will be continued on current therapy, plan of care. Continue the BiPAP with the oxygen supplementation, corticosteroids, bronchodilators, the antibiotics, adjustment in the medications will be done according to the results of the cultures. [place], [place] PROGRESS NOTE NAME: YOSSI MULLINS UNIT #: [id number] ROOM: 424 DOCTOR: AZIZ NELSON CHEUNG MD BIRTHDATE: [birth year] NELSON TREJO MD CM:KLAI 1227 NELSON CHEUNG MD 09/24/16 0548 interface
--- NOTE | ~2016-09-17 | PR ---
[place], [place] PROGRESS NOTE NAME: YOSSI MULLINS UNIT #: [id number] ROOM: 424 DOCTOR: ROBBY LINN MD BIRTHDATE: [birth year] DOS: 09/20/2016 SUBJECTIVE: The patient today is sitting up in bed, off her BiPAP mask, on nasal cannula, improved significantly. Denies any specific cardiac complaint and reporting significant improvement in her shortness of breath after her dialysis session yesterday. No chest pain, no chest pressure. No symptomatic palpitation. OBJECTIVE: VITAL SIGNS: Blood pressure 156/80, heart rate 52, respiratory rate of 20, temperature 98.6. NECK: Good upstroke, no bruit. HEART: S1, S2 with no rub, holosystolic murmur in the left upper sternal border. CHEST AND BACK: No deformities. LUNGS: Significant decreased air movement along with significant wheezing along with scattered rhonchi throughout the lung mendieta, bilateral. ABDOMEN: Morbidly obese with present bowel sounds. No masses, no bruits. LOWER EXTREMITIES: There is no significant edema with significant improvement from yesterday. LABORATORY DATA: White count 13.8 with slightly left shift. Potassium 4.3, creatinine 7.0. GFR is 6. Troponin 0.15, 0.39, 0.32. ASSESSMENT AND PLAN: Current presentation with shortness of breath, dyspnea on exertion, evidence of volume overload due to missing her dialysis session. The patient is exhibiting significant improvement on her symptoms after this session of dialysis yesterday that took almost 2 liters out. The edema improved significantly in both lower extremities, the patient still has infiltrate in the lungs with elevated white count along with left shift and currently she is on antibiotics. In regards to her atrial fibrillation, there is significant response to Lopressor with almost bradycardia, for that we will decrease the Lopressor to 25 mg b.i.d. I will defer volume management to Nephrology, we will continue with heparin and Coumadin for now for target INR between 2 and 3. Consider pulmonary rehab as an outpatient, increase activity with physical therapy and finally a sleep study that could be scheduled as an outpatient. [place], [place] PROGRESS NOTE NAME: YOSSI MULLINS UNIT #: [id number] ROOM: 424 DOCTOR: ROBBY LINN MDTE: 36 ROBBY LINN MD CM:KALI [id number] ROBBY LINN MD 09/20/161912 interface
--- NOTE | ~2016-09-17 | PR ---
[place], [place] PROGRESS NOTE NAME: YOSSI MULLINS UNIT #: [id number] ROOM: 424 DOCTOR: KADEN FUNK MD BIRTHDATE: [birth year] DOS: 09/21/2016 CARDIOLOGY PROGRESS NOTE SUBJECTIVE: Khari luciano was seen during dialysis today, 09/21/2016. She is tolerating dialysis well. The plan is to take an additional 2 liters off her today because of dyspnea earlier. She denies any chest pain. She is unaware that her heart is irregular. She admits the fact that she has had a mild stroke in the past. She has multiple risk factors for stroke and her CHADS-VASc score is 8. Typically dialysis patients do not require additional anticoagulation for stroke prophylaxis if their CHADS-VASc score seems reasonable; however, hers is so high that I think that her risk for stroke is extremely high and therefore, I agree with my partners that she should be kept on warfarin. PHYSICAL EXAMINATION: VITAL SIGNS: Today, her pulse is 78 and irregularly irregular, blood pressure is 127/76. She has an oxygen saturation of 100% on supplemental oxygen. NECK: Supple. She has no jugular distention. She does have mild hepatojugular reflux. Carotids are full. LUNGS: Respirations are unlabored. Her chest has decreased breath sounds at the bases. HEART: Has an irregularly irregular rhythm with distant tones. ABDOMEN: Soft and normally active. EXTREMITIES: Showed no edema. IMPRESSION: 1. Newly documented atrial fibrillation. 2. End-stage renal disease, on dialysis. 3. Left lower lobe infiltrate on CT scan of the chest and associated large left pleural effusion. 4. CHADS-VASc score of 8 indicating a very high risk for future cardioembolic events. PLAN: We will continue her Coumadin for target INR of 2-3. Rivaroxaban may also be useful in this situation; however, I think the risk of bleeding with rivaroxaban is probably higher given her renal failure and therefore we will stick with warfarin for the time being. We thank the hospitalist group for asking our advice regarding her care. [place], [place] PROGRESS NOTE NAME: YOSSI MULLINS UNIT #: [id number] ROOM: 424 DOCTOR: KADEN FUNK MD BIRTHDATE: [birth year] KADEN FUNK MD CM:PNDIEGO [phone] KADEN FUNK MD 09/22/16 0642 interface
--- NOTE | ~2016-09-17 | PR ---
[place], [place] PROGRESS NOTE NAME: [facility]ULLINS [id number] UNIT #: [id number] ROOM: 424 DOCTOR: JON HIGUERA MD BIRTHDATE: [birth year] DOS: 09/26/2016 INTERVAL HISTORY: The patient has been admitted to the hospital with lightheadedness, dizziness and shortness of breath. She is feeling fairly good. She denies any chest pain, no difficulty in breathing, no nausea, no vomiting. She is feeling comfortable and she has atrial fibrillation and past history of intussusception of the intestine, COPD, acute respiratory distress and congestive heart failure. At present, the patient is not in any distress and the patient is taking Coumadin, but today her protime is 118.2, INR is 9.2, which is quite high. We are going to hold her Coumadin and we are going to give her some vitamin K. OBJECTIVE: VITAL SIGNS: Her blood pressure today is 154/84, pulse 73, respirations 20, temperature 97.8. HEART: Irregular. CHEST: Clear. ABDOMEN: Soft. JON HIGUERA MD CM:PNTRANS [id number] JON HIGUERA MD 09/26/16 1248 interface
--- NOTE | ~2016-09-17 | PR ---
[place], [place] PROGRESS NOTE NAME: YOSSI MULLINS [facility] #: [id number] UNIT #: [id number] ROOM: 424 DOCTOR: KADEN FUNK MD BIRTHDATE: [birth year] DOS: 09/24/2016 CARDIOLOGY PROGRESS NOTE SUBJECTIVE: The patient was seen during dialysis today, 09/24/2016. She continues to complain of dyspnea, but appears comfortable. She is able to lay flat in bed and denies any chest pain. Her heart rate has been well controlled and her blood pressure looks more reasonable as well. Plans are being made for her discharge possibly within the next 24 hours. PHYSICAL EXAMINATION: VITAL SIGNS: Today, her pulse is 83 and irregularly irregular, blood pressure is 136/40. She is afebrile. She weighs 79.6 kilograms with a body mass index of 34.3. NECK: Supple. She has no jugular distention. Carotids are full without bruits. LUNGS: Respirations are unlabored. Her chest has scattered wheezes bilaterally. She has decreased breath sounds at the bases. HEART: Has an irregularly irregular rhythm without murmurs or gallops. ABDOMEN: Benign. EXTREMITIES: Showed no edema. LABORATORY DATA: A chest x-ray done on 09/23/2016 showed cardiomegaly, but no infiltrates or effusions. I reviewed the images from the CAT scan dated 09/19/2016. She does have a left pleural effusion at that time. She does have a loculated pericardial effusion which is mostly associated with the left ventricle. Clinically, she does not have any signs of tamponade. LABORATORY DATA: Today her hemoglobin is 11.2, white count is 13,400. Sodium 136, potassium 5.1, BUN 53, creatinine 5.36. She does seem to be clinically euvolemic and stable from a cardiac standpoint. She is therapeutically anticoagulated and has stable hemoglobins. IMPRESSION: 1. Chronic diastolic heart failure with acute exacerbation. 2. Newly documented atrial fibrillation with a rapid ventricular response. 3. End-stage renal disease, on dialysis. The patient required aggressive fluid removal during this hospitalization. 4. Left lower lobe infiltrate with large left pleural effusion on admission, improved per chest x-ray. 5. Chronic obstructive pulmonary disease exacerbation, followed by Dr. Pleitez and appears to be improving. PLAN: The patient appears to be on an adequate cardiac regimen. I will continue the current medications. She probably will be discharged to home soon and we will follow her intermittently as an outpatient. [place], [place] PROGRESS NOTE NAME: YOSSI MULLINS UNIT #: [id number] ROOM: 424 DOCTOR: KADEN FUNK MD BIRTHDATE: [address] Alba for asking our advice regarding her care. KADEN FUNK MD CM:PNTRANS [phone] KADEN FUNK MD 09/25/16 0134 interface
--- NOTE | ~2016-09-17 | PROC NOTE ---
[place], [place] PROCEDURE NOTE NAME: YOSSI MULLINS UNIT #: [id number] ROOM: 424 DOCTOR: MAYA CHEUNG MD,NELSON BIRTHDATE: [birth year] DOS: 09/22/2016 PROCEDURE: Bronchoscopy. PREOPERATIVE DIAGNOSES: Persistent severe nonproductive cough with acute pneumonia for this patient, ineffective sputum expectoration with maximum medical therapy. POSTOPERATIVE DIAGNOSES: Persistent severe nonproductive cough with acute pneumonia for this patient, ineffective sputum expectoration with maximum medical therapy. PROCEDURE DESCRIPTION: Informed consent obtained from the patient. The patient brought to the OR and placed in supine position. Conscious sedation administered by the Anesthesia Department. After achieving appropriate sedation, airway introduced into the mouth. Bronchoscope advanced into the airway into laryngeal area. Epiglottis and vocal cords were seen. Bronchoscope advanced to the vocal cord and tracheal lumen. Tracheal lumen was noted with moderate amount of thick mucus secretion, which was suctioned out to the jw level. Right upper, right middle, right lower, left upper, lingular lower lobe bronchi were all examined. Thick large plugs and mucus present in endobronchial tree bilaterally suctioned out with the help of normal saline wash. Small purulent secretion present in endobronchial tree bilaterally as well suctioned out with the help of normal saline wash. Procedure was tolerated by the patient without complications. Postoperative findings will be discussed with the patient once the patient recovered the effects of acute sedation. NELSON TREJO MD CM:PROCNOTE:PROCEDURE NOTE [id number] NELSON CHEUNG MD
[~2016-09-17 19:10] MED LIST changes: +NAPROSYN500 MG PO
[2016-09-17 19:24] VITALS: BP 149/110
[2016-09-17 19:53] LABS: HEMATOCRIT 37.1 % (37.0-47.0); HEMOGLOBIN 11.8 g/dl (12.0-16.0); MEAN CELL VOLUME 101.6 fl (81.0-99.0); MEAN CORPUSCULAR HGB 32.3 pg (27.0-31.0); MEAN CORPUSCULAR HGB CONC 31.8 g/dl (33.0-37.0); MEAN PLATELET VOLUME 11.4 fl (9.6-12.3); PLATELET COUNT AUTOMATED 322 10*3/uL (130-400); RED BLOOD COUNT 3.65 10*6/uL (4.10-5.10); RED CELL DISTRI WIDTH 13.8 % (0-14.5); WHITE BLOOD COUNT 20.8 10*3/uL (4.8-10.8)
[2016-09-17 20:08] LABS: BUN 26 mg/dl (7-24); CARBON DIOXIDE 28 mmol/L (21-32); CHLORIDE 95 mmol/L (98-107); EST GLOM FILT AFRICAN AMERICAN 12 ml/min; GLUCOSE 246 mg/dL (65-99); MAGNESIUM 1.7 mg/dL (1.5-2.1); POTASSIUM 4.3 mmol/L (3.5-5.1); SODIUM 136 mmol/L (136-145)
[2016-09-17 20:09] LABS: TROPONIN I < 0.015 ng/ml (<0.045)
[2016-09-17 20:17] LABS: PROTHROMBIN TIME 10.1 SECONDS (9.0-12.4)
[2016-09-17 20:18] VITALS: BP 122/88
[2016-09-17 20:32] LABS: LYMPHOCYTE # 0.8 10*3/uL (1.3-4.4); MONOCYTE # 0.6 10*3/uL (0.1-1.0); NEUTROPHIL # 19.3 10*3/uL (2.3-7.9); NEUTROPHILS 93 % (47-73); PLATELET SUFFICIENCY NORMAL (NORMAL); TOTAL CELLS COUNTED 100 #CELLS
[2016-09-17 22:16] VITALS: BP 188/77
[2016-09-17 22:46] VITALS: BP 111/86
[2016-09-17 23:00] VITALS: BP 139/99
[2016-09-18] VITALS: BP 157/82
[2016-09-18 07:11] LABS: HEMATOCRIT 33.8 % (37.0-47.0); HEMOGLOBIN 10.7 g/dl (12.0-16.0); MEAN CELL VOLUME 102.4 fl (81.0-99.0); MEAN CORPUSCULAR HGB 32.4 pg (27.0-31.0); MEAN CORPUSCULAR HGB CONC 31.7 g/dl (33.0-37.0); MEAN PLATELET VOLUME 11.4 fl (9.6-12.3); PLATELET COUNT AUTOMATED 271 10*3/uL (130-400); WHITE BLOOD COUNT 13.8 10*3/uL (4.8-10.8)
[2016-09-18 07:23] LABS: ALBUMIN 2.9 gm/dl (3.1-4.5); BILIRUBIN, TOTAL 0.7 mg/dl (0.2-1.0); CHOLESTEROL 111 mg/dL (<200); FREE T4 1.49 ng/dl (0.76-1.46); HDL CHOLESTEROL 57 mg/dl (40-60); LDL CHOLESTEROL 35 mg/dL (9-159); PHOSPHOROUS 3.1 mg/dL (2.5-4.9); TOTAL PROTEIN 7.3 gm/dL (6.4-8.2); TRIGLYCERIDES 96 mg/dl (<150); VLDL CHOLESTEROL 19 mg/dL (6-40)
[2016-09-18 07:29] LABS: THYROID STIM HORMONE (HS) 1.03 uIU/ml (0.358-4.75)
[2016-09-18 07:38] LABS: HYPOCHROMIA SLIGHT; LYMPHOCYTE # 0.1 10*3/uL (1.3-4.4); MONOCYTE # 0.1 10*3/uL (0.1-1.0); NEUTROPHIL # 13.5 10*3/uL (2.3-7.9); NEUTROPHILS 98 % (47-73); PLATELET SUFFICIENCY NORMAL (NORMAL); TOTAL CELLS COUNTED 100 #CELLS
[2016-09-18 07:51] LABS: FOLIC ACID 13.4 ng/mL (>5.38)
[2016-09-18 08:00] VITALS: BP 151/75; BP 156/74
[2016-09-18 08:00] LABS: HEMOGLOBIN A1c 5.5 % (4.8-5.6)
[2016-09-18 08:06] LABS: POTASSIUM 5.4 mmol/L (3.5-5.1)
[2016-09-18 08:17] LABS: ABG BASE EXCESS 5.3 mmol/L (-2.0-2.0); ABG CO2 CONTENT 30.9 mmol/L (23-27); ABG HCO3 29.6 mmol/l (22-26); ABG TEMPERATURE 100.4 F (98.0-99.0); ARTERIAL BLOOD GAS PH 7.427 (7.35-7.45)
[2016-09-18 11:47] LABS: LA>2 REFLEX 2 HR DRAW NOW
[2016-09-18 16:00] VITALS: BP 138/58
[2016-09-18 20:00] VITALS: BP 125/55
[2016-09-19] VITALS: BP 134/62
[2016-09-19 04:56] LABS: ABG BASE EXCESS 4.1 mmol/L (-2.0-2.0); ABG CO2 CONTENT 30.6 mmol/L (23-27); ABG HCO3 29.2 mmol/l (22-26); ARTERIAL BLOOD GAS PH 7.396 (7.35-7.45); ARTERIAL BLOOD GAS PO2 93.3 mmHg (80-90)
[2016-09-19 04:57] LABS: ABG TEMPERATURE 98.4 F (98.0-99.0)
[2016-09-19 06:17] LABS: POTASSIUM 4.3 mmol/L (3.5-5.1)
[2016-09-19 08:00] VITALS: BP 157/81
[2016-09-19 16:00] VITALS: BP 175/90
[2016-09-19 20:00] VITALS: BP 125/80; BP 129/59
[2016-09-20] VITALS: BP 144/83
[2016-09-20 07:00] LABS: PROTHROMBIN TIME 10.7 SECONDS (9.0-12.4)
[2016-09-20 08:00] VITALS: BP 156/80
[2016-09-20 12:00] VITALS: BP 155/81
[2016-09-20 16:00] VITALS: BP 170/80
[2016-09-20 20:00] VITALS: BP 159/70
[2016-09-21] VITALS: BP 133/74
[2016-09-21 06:27] LABS: INTERNATIONAL NORM RATIO 1.4 (2.0-3.5); PROTHROMBIN TIME 15.4 SECONDS (9.0-12.4)
[2016-09-21 06:49] LABS: HEMATOCRIT 33.8 % (37.0-47.0); HEMOGLOBIN 10.7 g/dl (12.0-16.0); MEAN CELL VOLUME 102.4 fl (81.0-99.0); MEAN CORPUSCULAR HGB 32.4 pg (27.0-31.0); MEAN CORPUSCULAR HGB CONC 31.7 g/dl (33.0-37.0); MEAN PLATELET VOLUME 11.8 fl (9.6-12.3); PLATELET COUNT AUTOMATED 276 10*3/uL (130-400); RED CELL DISTRI WIDTH 13.9 % (0-14.5); WHITE BLOOD COUNT 13.5 10*3/uL (4.8-10.8)
[2016-09-21 06:56] LABS: ALBUMIN 2.9 gm/dl (3.1-4.5); PHOSPHOROUS 2.9 mg/dL (2.5-4.9); POTASSIUM 5.5 mmol/L (3.5-5.1)
[2016-09-21 07:56] LABS: LYMPHOCYTE # 0.3 10*3/uL (1.3-4.4); MONOCYTE # 0.3 10*3/uL (0.1-1.0); NEUTROPHILS 96 % (47-73); PLATELET SUFFICIENCY NORMAL (NORMAL); TOTAL CELLS COUNTED 100 #CELLS
[2016-09-21 08:00] VITALS: BP 178/78
[2016-09-21 11:19] LABS: COL/EPI 85 SECONDS (86-157)
[2016-09-21 12:00] VITALS: BP 160/62
[2016-09-21 16:00] VITALS: BP 127/76
[2016-09-21 20:00] VITALS: BP 159/72
[2016-09-22] VITALS (7 sets, daily range): BP systolic 124–190; BP diastolic 52–86
[2016-09-22 06:53] LABS: HEMATOCRIT 35.1 % (37.0-47.0); HEMOGLOBIN 10.9 g/dl (12.0-16.0); MEAN CELL VOLUME 102.9 fl (81.0-99.0); MEAN CORPUSCULAR HGB CONC 31.1 g/dl (33.0-37.0); MEAN PLATELET VOLUME 11.6 fl (9.6-12.3); NUCLEATED RED BLOOD CELL 0.1 % (0.0-0.0); PLATELET COUNT AUTOMATED 291 10*3/uL (130-400); RED BLOOD COUNT 3.41 10*6/uL (4.10-5.10); WHITE BLOOD COUNT 13.6 10*3/uL (4.8-10.8)
[2016-09-22 07:13] LABS: INTERNATIONAL NORM RATIO 1.9 (2.0-3.5); PROTHROMBIN TIME 21.5 SECONDS (9.0-12.4)
[2016-09-22 07:14] LABS: ALBUMIN 3.1 gm/dl (3.1-4.5); PHOSPHOROUS 3.6 mg/dL (2.5-4.9)
[2016-09-22 07:20] LABS: FREE T4 0.81 ng/dl (0.76-1.46); THYROID STIM HORMONE (HS) 0.603 uIU/ml (0.358-4.75)
[2016-09-22 08:11] LABS: LYMPHOCYTE # 0.7 10*3/uL (1.3-4.4); METAMYELOCYTES 1 % (0-0); MONOCYTE # 0.4 10*3/uL (0.1-1.0); MYELOCYTES 1 % (0-0); NEUTROPHIL # 12.2 10*3/uL (2.3-7.9); NEUTROPHILS 90 % (47-73); TOTAL CELLS COUNTED 100 #CELLS
[2016-09-22 08:12] LABS: PLATELET SUFFICIENCY NORMAL (NORMAL)
[2016-09-23] VITALS: BP 161/78
[2016-09-23 05:08] LABS: TOTAL PROTEIN, SERUM 6.2 g/dL (6.0-8.5)
[2016-09-23 06:13] LABS: FREE T3 010389 1.3 pg/mL (2.0-4.4)
[2016-09-23 08:00] VITALS: BP 170/74
[2016-09-23 08:04] LABS: PHOSPHOROUS 3.8 mg/dL (2.5-4.9); POTASSIUM 5.5 mmol/L (3.5-5.1)
[2016-09-23 08:20] LABS: INTERNATIONAL NORM RATIO 2.3 (2.0-3.5); PROTHROMBIN TIME 26.1 SECONDS (9.0-12.4)
[2016-09-23 12:00] VITALS: BP 144/50
[2016-09-23 15:09] LABS: ACID FAST SPEC PROCESSING Concentration (.)
[2016-09-23 16:00] VITALS: BP 144/78; BP 159/46
[2016-09-23 16:11] LABS: ALBUMIN 3.1 g/dL (2.9-4.4); ALPHA-1-GLOBULIN 0.3 g/dL (0.0-0.4); GAMMA GLOBULIN 0.8 g/dL (0.4-1.8); GLOBULIN, TOTAL 3.1 g/dL (2.2-3.9); M-SPIKE Comment: g/dL (Not Observed)
[2016-09-24 00:22] VITALS: BP 140/68
[2016-09-24 06:14] LABS: POTASSIUM 5.1 mmol/L (3.5-5.1)
[2016-09-24 06:15] LABS: HEMATOCRIT 34.8 % (37.0-47.0); HEMOGLOBIN 11.2 g/dl (12.0-16.0); MEAN CELL VOLUME 100.9 fl (81.0-99.0); MEAN CORPUSCULAR HGB 32.5 pg (27.0-31.0); MEAN CORPUSCULAR HGB CONC 32.2 g/dl (33.0-37.0); MEAN PLATELET VOLUME 11.4 fl (9.6-12.3); PLATELET COUNT AUTOMATED 231 10*3/uL (130-400); RED BLOOD COUNT 3.45 10*6/uL (4.10-5.10); RED CELL DISTRI WIDTH 13.6 % (0-14.5); WHITE BLOOD COUNT 13.4 10*3/uL (4.8-10.8)
[2016-09-24 07:07] LABS: LYMPHOCYTE # 0.7 10*3/uL (1.3-4.4); METAMYELOCYTES 1 % (0-0); MONOCYTE # 0.5 10*3/uL (0.1-1.0); MYELOCYTES 3 % (0-0); NEUTROPHIL # 11.7 10*3/uL (2.3-7.9); NEUTROPHILS 87 % (47-73); PLATELET SUFFICIENCY NORMAL (NORMAL); TOTAL CELLS COUNTED 100 #CELLS
[2016-09-24 08:00] VITALS: BP 136/40
[2016-09-24 12:00] VITALS: BP 156/86
[2016-09-24 16:00] VITALS: BP 141/49
[2016-09-24 20:00] VITALS: BP 161/77
[2016-09-25] VITALS: BP 157/70
[2016-09-25 06:24] LABS: HEMATOCRIT 38.6 % (37.0-47.0); HEMOGLOBIN 12.2 g/dl (12.0-16.0); MEAN CELL VOLUME 100.3 fl (81.0-99.0); MEAN CORPUSCULAR HGB 31.7 pg (27.0-31.0); MEAN CORPUSCULAR HGB CONC 31.6 g/dl (33.0-37.0); MEAN PLATELET VOLUME 11.4 fl (9.6-12.3); PLATELET COUNT AUTOMATED 246 10*3/uL (130-400); RED BLOOD COUNT 3.85 10*6/uL (4.10-5.10); RED CELL DISTRI WIDTH 13.8 % (0-14.5); WHITE BLOOD COUNT 14.9 10*3/uL (4.8-10.8)
[2016-09-25 07:04] LABS: BILIRUBIN, TOTAL 0.6 mg/dl (0.2-1.0); TOTAL PROTEIN 6.6 gm/dL (6.4-8.2)
[2016-09-25 07:12] LABS: LYMPHOCYTE # 0.1 10*3/uL (1.3-4.4); METAMYELOCYTES 1 % (0-0); MONOCYTE # 0.3 10*3/uL (0.1-1.0); MYELOCYTES 1 % (0-0); NEUTROPHIL # 14.2 10*3/uL (2.3-7.9); NEUTROPHILS 95 % (47-73); PLATELET SUFFICIENCY NORMAL (NORMAL); TOTAL CELLS COUNTED 100 #CELLS; TOXIC GRANULATION SLIGHT
[2016-09-25 08:00] VITALS: BP 159/64
[2016-09-25 12:00] VITALS: BP 158/70
[2016-09-25 16:24] VITALS: BP 158/58
[2016-09-25 20:00] VITALS: BP 157/89
[2016-09-26] VITALS: BP 154/84
[2016-09-26 07:00] LABS: HEMATOCRIT 35.6 % (37.0-47.0); HEMOGLOBIN 11.4 g/dl (12.0-16.0); MEAN CELL VOLUME 101.1 fl (81.0-99.0); MEAN CORPUSCULAR HGB 32.4 pg (27.0-31.0); PLATELET COUNT AUTOMATED 235 10*3/uL (130-400); RED BLOOD COUNT 3.52 10*6/uL (4.10-5.10); RED CELL DISTRI WIDTH 13.9 % (0-14.5); WHITE BLOOD COUNT 16.5 10*3/uL (4.8-10.8)
[2016-09-26 07:40] LABS: PROTHROMBIN TIME 118.2 SECONDS (9.0-12.4)
[2016-09-26 07:42] LABS: INTERNATIONAL NORM RATIO 9.6 (2.0-3.5)
[2016-09-26 07:49] LABS: NEUTROPHIL # 16.5 10*3/uL (2.3-7.9); NEUTROPHILS 100 % (47-73); PLATELET SUFFICIENCY NORMAL (NORMAL); TOTAL CELLS COUNTED 100 #CELLS
[2016-09-26 08:00] VITALS: BP 95/69
[2016-09-26 08:27] VITALS: BP 135/55
[2016-09-26 13:42] VITALS: BP 124/50
[2016-09-26 16:00] VITALS: BP 130/67
[2016-09-26 20:00] VITALS: BP 131/57
[2016-09-27] VITALS: BP 157/68
[2016-09-27 06:59] LABS: INTERNATIONAL NORM RATIO 1.3 (2.0-3.5)
[2016-09-27 08:00] VITALS: BP 152/56
[2016-09-27 12:00] VITALS: BP 132/70
[2016-09-27 16:00] VITALS: BP 130/80
[2016-09-27 20:00] VITALS: BP 133/63
[2016-09-28] VITALS: BP 145/84
[2016-09-28 06:36] LABS: INTERNATIONAL NORM RATIO 1.6 (2.0-3.5); PROTHROMBIN TIME 17.5 SECONDS (9.0-12.4)
[2016-09-28 08:00] VITALS: BP 124/74
[2016-09-28 12:00] VITALS: BP 153/85
[2016-09-28] MEDS ORDERED: MUCINEX ER600 MG PO (13:58)
[2016-09-28] MEDS ORDERED: D-1000 185 MG-11 TAB PO (13:58)
[2016-09-28] MEDS ORDERED: DILTIAZEM 24HR120 MG PO (13:58)
[2016-09-28] MEDS ORDERED: COUMADIN5 M2 PO (14:01)
[2016-09-28] MEDS ORDERED: PREDNISONE10 MG PO ×2 (15:33→17:48)
[2016-09-28 16:00] VITALS: BP 138/58
== END 2016-09-28 17:17 | disposition home or self-care (01) | DRG 871 ==
LOC: ED 19:10 → 4E 22:06 → EDHOLD 22:06 → 4E 22:13
PROVIDERS: Emergency Medicine; Family Medicine; Hospitalist; Internal Medicine; Internal Medicine Cardiovascular Disease; Internal Medicine Critical Care Medicine; Internal Medicine Nephrology; Student in an Organized Health Care Education/Training Program
DX: A41.9 Sepsis, unspecified organism (principal); I50.33 Acute on chronic diastolic (congestive) heart failure; J96.01 Acute respiratory failure with hypoxia; J69.0 Pneumonitis due to inhalation of food and vomit; N18.6 End stage renal disease; I07.1 Rheumatic tricuspid insufficiency; J44.0 Chronic obstructive pulmonary disease with (acute) lower respiratory infection; K56.1 Intussusception; N25.81 Secondary hyperparathyroidism of renal origin; I13.2 Hypertensive heart and chronic kidney disease with heart failure and with stage 5 chronic kidney disease, or end stage renal disease; J44.1 Chronic obstructive pulmonary disease with (acute) exacerbation; M48.56XA Collapsed vertebra, not elsewhere classified, lumbar region, initial encounter for fracture; E11.22 Type 2 diabetes mellitus with diabetic chronic kidney disease; E11.65 Type 2 diabetes mellitus with hyperglycemia; E87.5 Hyperkalemia; D63.8 Anemia in other chronic diseases classified elsewhere; K21.9 Gastro-esophageal reflux disease without esophagitis; E66.09 Other obesity due to excess calories; E55.9 Vitamin D deficiency, unspecified; T45.515A Adverse effect of anticoagulants, initial encounter; G47.33 Obstructive sleep apnea (adult) (pediatric); F17.210 Nicotine dependence, cigarettes, uncomplicated; Z86.73 Personal history of transient ischemic attack (TIA), and cerebral infarction without residual deficits; Z90.710 Acquired absence of both cervix and uterus; Z90.49 Acquired absence of other specified parts of digestive tract; Z83.3 Family history of diabetes mellitus; Z84.89 Family history of other specified conditions; Z79.4 Long term (current) use of insulin; Z79.82 Long term (current) use of aspirin; Z79.899 Other long term (current) drug therapy; Z99.2 Dependence on renal dialysis; Y92.89 Other specified places as the place of occurrence of the external cause; Z68.36 Body mass index [BMI] 36.0-36.9, adult

== ENCOUNTER 2016-10-01 11:11 | Inpatient (IN) | payer MEDICARE ==
[2016-10-01] VITALS (28 sets, daily range): BP systolic 60–137; BP diastolic 0–86
[~2016-10-01] VITALS: Ht 152 cm; Wt 80.1 kg
--- NOTE | ~2016-10-01 | PROC NOTE ---
[place], [place] PROCEDURE NOTE NAME: YOSSI MULLINS UNIT #: [id number] ROOM: [facility] DOCTOR: MARTIN HESS DO BIRTHDATE: [birth year] DOS: 10/01/2016 TIME: 1415 hours. INDICATION: Intravenous access. RESIDENT PERFORMING: Dr. Martin Hess. ATTENDING: Dr. Jing London. RESIDENT SUPERVISING: Dr. John Shah. DESCRIPTION OF PROCEDURE: A timeout was taken, verifying correct patient, procedure, site, positioning, and special equipment if applicable. The patient was placed in a dependent position appropriate for central line placement based on the vein to be accessed, the patient's right neck was prepped and draped in sterile fashion. Lidocaine was used to anesthetize the surrounding area. A triple lumen catheter was introduced into the internal jugular vein and was done under ultrasound guidance. The catheter was threaded smoothly over the guidewire and appropriate blood return was obtained. Each lumen of the catheter was evacuated of air and flushed with sterile saline. The catheter was then sutured in a place on the skin and sterile dressing was applied. Perfusion of the extremity distal to the point of the catheter insertion was checked and found to be adequate. Dr. John Shah was present for the entire procedure and directed it. Estimated blood loss was less than 5 mL. The patient tolerated the procedure well, and there were no complications. Martin Hess DO JING LONDON MD CM:PROCNOTE:PROCEDURE NOTE [id number] MARTIN HESS DO
--- NOTE | ~2016-10-01 | PR ---
[place], [place] PROGRESS NOTE NAME: YOSSI MULLINS UNIT #: [id number] ROOM: 503 DOCTOR: KADEN FUNK MD BIRTHDATE: [birth year] DOS: 10/06/2016 CARDIOLOGY PROGRESS NOTE SUBJECTIVE: The patient was seen today, 10/06/2016 at her bedside in the intensive care unit. She looks much more comfortable than yesterday. She is breathing easily and denies any chest discomfort. Her evaluation yesterday was benign and her dyspnea may have been due to an anxiety attack. Today, she denies any chest pain or palpitations. She denies orthopnea or PND. She denies bleeding. PHYSICAL EXAMINATION: VITAL SIGNS: Her pulse is 97 and irregularly irregular, blood pressure is 163/64. She weighs 73.1 kilograms with a body mass index of 31.6. NECK: Supple. She has no jugular distention. Carotids are full. I heard no bruits. LUNGS: Respirations are unlabored. Her chest is clear. HEART: Has an irregularly irregular rhythm without murmurs or gallops. ABDOMEN: Obese, but otherwise benign. EXTREMITIES: Showed no edema. LABORATORY DATA: CBC today shows a hemoglobin of 10.4 with hematocrit of 32. There are 9500 white cells and 97,000 platelets. Sodium is 144, potassium 3.7, BUN 42, creatinine 6.73. IMPRESSION: 1. Atrial fibrillation with controlled ventricular response. 2. Diabetes mellitus. 3. End-stage renal disease. 4. [id number] score equals 8 consistent with a very high risk for cardioembolic events without anticoagulation. 5. An upper gastrointestinal bleed on admission, apparently due to gastritis. The patient has no active bleeding at this time. 6. Chronic diastolic congestive heart failure. 7. Chronic obstructive pulmonary disease. PLAN: The patient appears to be stable from a cardiac standpoint. There was concern about our ability to manage her warfarin effectively and therefore yesterday, she was placed on a direct oral anticoagulant (Xarelto), the latter drug was chosen because it does have an indication for patients on dialysis where as Eliquis does not. We will continue to follow her with her other physicians and we thank Dr. Alba for asking our advice regarding her care. [place], [place] PROGRESS NOTE NAME: YOSSI MULLINS UNIT #: [id number] ROOM: 503 DOCTOR: KADEN FUNK MD BIRTHDATE: [birth year] KADEN FUNK MD CM:PNTRANS [phone] KADEN FUNK MD 10/07/166 interface
--- NOTE | ~2016-10-01 | PR ---
[place], [place] PROGRESS NOTE NAME: YOSSI MULLINS [facility] #: [id number] UNIT #: [id number] ROOM: [facility] DOCTOR: KADEN FUNK MD BIRTHDATE: [birth year] DOS: 10/05/2016 SUBJECTIVE: The patient was seen at her bedside in the intensive care unit today 10/05/2016 for followup of atrial fibrillation and chronic diastolic heart failure in the setting of chronic end-stage renal disease on dialysis. She was hospitalized a few weeks ago when she was massively fluid overloaded. She required multiple consecutive dialysis treatments and improved. Despite , I did prescribe warfarin anticoagulation. Her CHADS-VASc score was 8 indicating a very high risk of cardioembolic phenomena without anticoagulation and therefore warfarin was selected. The patient presented to the hospital on this occasion with GI bleeding. Endoscopy did show gastritis. She did not have active bleeding at the time of her endoscopy. Today, the patient notes dyspnea. She became tachycardic this morning. Evaluation thus far shows normal pulse oximetry. Blood gases show an acute respiratory alkalosis with normal oxygen saturations. A chest x-ray is pending. PHYSICAL EXAMINATION: VITAL SIGNS: Pulse is 96 and irregularly irregular, blood pressure is 137/67. She is afebrile. She weighs 73.1 kilograms. NECK: Supple. I see no jugular distention. Carotids are full. LUNGS: Respirations are tachypneic. She had no wheezes or rales. She had no presacral edema. HEART: An irregularly irregular rhythm without obvious murmurs or gallops. ABDOMEN: Soft and normoactive. EXTREMITIES: Showed no significant edema. LABORATORY DATA: Hemoglobin yesterday was 10.8. INR was not checked today. Glucose at 5:22 this morning was low at 33. The patient has not had a prothrombin time recently and has not had a CBC today. Her last prothrombin time on 10/02/2016 was therapeutic at 2.2. IMPRESSION: 1. Atrial fibrillation with controlled ventricular response. 2. Diabetes. 3. End-stage renal disease. 4. Upper gastrointestinal bleed on admission apparently due to gastritis. The patient has no active bleeding at this time. 5. Chronic diastolic congestive heart failure. 6. Chronic obstructive pulmonary disease. PLAN: We will review her chest x-ray when it is available. I have ordered a CBC, basic metabolic profile and prothrombin time as well. If her CBC remains stable, we will resume her warfarin anticoagulation. I thank the hospitalist physicians for asking our advice regarding her care. [place], [place] PROGRESS NOTE NAME: YOSSI MULLINS UNIT #: [id number] ROOM: [facility] DOCTOR: KADEN FUNK MD BIRTHDATE: [birth year] KADEN FUNK MD CM:PNTRANS [phone] KADEN FUNK MD 10/05/16 2100 interface
--- NOTE | ~2016-10-01 | PR ---
[place], [place] PROGRESS NOTE NAME: YOSSI MULLINS UNIT #: [id number] ROOM: [facility] DOCTOR: ROBBY LINN MD BIRTHDATE: [birth year] DOS: 10/03/2016 SUBJECTIVE: The patient also appears to be completely flat in bed, does not appear in distress. Denies any specific cardiac complaint. OBJECTIVE: VITAL SIGNS: Blood pressure 141/37, heart rate 74, respiratory rate of 16, temperature 98.7. NECK: Good upstroke, no bruit, no evidence of JVD. HEART: S1, S2 with holosystolic murmur at left sternal border. LUNGS: Clear to auscultation with no wheezing or rales. EXTREMITIES: Lower extremities: There is no significant edema. ASSESSMENT AND PLAN: History of atrial fibrillation with supratherapeutic Coumadin in a patient with end-stage renal disease, currently on dialysis. The patient had significant drop in her hemoglobin, resumption of oral anticoagulation will be dependent on the results of the EGD. Keeping hematocrit over 30% is advisable. From the heart point of view, the patient had an episode of profound bradycardia, but appears to have recovered. Currently, her heart rate is in the 70s. I will hold off on resuming any negative chronotropic agents at this time. We will continue to watch carefully. Again, resumption of oral anticoagulation will be dependent on the recommendation from the surface surgery/____ who was performing the EGD. No current or recommendation at this time from the cardiac point of view. ROBBY LINN MD CM:PNTRANS [id number] ROBBY LINN MD 10/03/16 1244 interface
--- NOTE | ~2016-10-01 | CON ---
[place], [place] REPORT OF CONSULTATION NAME: YOSSI MULLINS UNIT #: [id number] ROOM: [facility] DOCTOR: CAROL BOWDENWILDA BIRTHDATE: [birth year] DOS: 10/02/2016 GASTROENDOSCOPIC CONSULTATION REPORT HISTORY OF PRESENT ILLNESS: A 75-year-old patient who has presented with multiple medical problems, among which has been elevated PT/INR to nondetectable level. The patient with history of resolved volvulus in recent past, correction of the INR with multi units of fresh frozen plasma and vitamin K. We have been asked for assessment of the patient with possibility of GI bleed. PAST MEDICAL HISTORY: Congestive heart failure, atrial fibrillation, shock liver, possible ileus, history of dementia, hypertension, obesity, all has been recognized. MEDICATION LIST: Has been reviewed. ALLERGIES: No known medication. FAMILY HISTORY: Noncontributory. PAST SURGICAL HISTORY: Eye surgeries, appendectomy, hysterectomy, cardiac catheterization, cholecystectomy. SOCIAL HISTORY: Nonsmoker, nonalcohol consumer. REVIEW OF SYSTEMS: HEENT: Denies double vision, blurred vision. RESPIRATORY: Denies acute shortness of breath. CARDIOVASCULAR: Denies acute chest pain. DIGESTIVE SYSTEM: No hematemesis, no hematochezia; however, history of resolved volvulus and prolonged INR, suspected GI bleed with severe drop in H and H. PHYSICAL EXAMINATION: GENERAL: Relatively alert. HEENT: Head normocephalic, nontraumatic. Mouth and buccal mucosa benign. NECK: Supple, no thyromegaly. CHEST: Symmetric anatomy, equal expansion. No wheeze. Decreased air entry bilaterally. HEART: Atrial fibrillation, moderate ventricular response. ABDOMEN: Soft, obese, no hepato-organomegaly. Bowel sounds present. EXTREMITIES: Multi small hematomas in upper extremities were noticed. NEUROLOGIC: Alert and slow orientation. LABORATORY DATA: Reviewed. Lactic acid was 4.2 in the last assessment and was repeated and resolved to 2.0. Troponin was slightly elevated; however, with the renal failure, BUN and creatinine 90 and 6.7, it could be a contribution from renal status and hyperkalemia secondary to renal failure noticed. Magnesium 1.5. Her liver function test, elevation of GOT, GPT suddenly to 700 and 800 in comparison for admission with dramatic jump, could be secondary to liver shock and hypotension. Ultrasound of the liver on 09/26/2016, irregular contours of [place], [place] REPORT OF CONSULTATION NAME: YOSSI MULLINS UNIT #: [id number] ROOM: [facility] DOCTOR: CAROL BOWDEN,WILDA BIRTHDATE: [birth year] the liver was known. Blood cultures have been negative. Latest H and H after transfusion and stabilization 9.9 and 29. Latest electrolytes, BUN, creatinine, improvement to 33 and 3.1, calcium 5.8 could be secondary to her prealbumin; however, infusion of calcium needed. INR 2.2, corrected. PLAN AND DISCUSSION: We will proceed with EGD due to the severe drop of hemoglobin from 12 to approximately 8 and transfusions. WILDA MEDINA MD CM:CONSTR:REPORT OF CONSULTATION 1550 10/03/16 0634 interface
--- NOTE | ~2016-10-01 | PR ---
[place], [place] PROGRESS NOTE NAME: YOSSI MULLINS UNIT #: [id number] ROOM: [facility] DOCTOR: JON HIGUERA MD BIRTHDATE: [birth year] DOS: 10/03/2016 SUBJECTIVE: The patient is in the ICU and had very much elevated protime. Her Coumadin was stopped and the patient received vitamin K and she was also bleeding. Her hemoglobin had dropped very much due to GI bleeding and the patient also received 2 units of packed cells, so her hemoglobin came from 8.8 gram to 10.2, hematocrit 31. So, she is showing improvement after blood transfusion. The patient's basic metabolic profile shows creatinine 4.26, BUN 41, GFR 10, indicating renal failure. The patient is being seen by adjunct mathematics instructor. Her calcium is 5.8, which is quite low. The patient has received intravenous calcium and I started calcium by mouth also. Her C. diff is negative and ____ MRSA is negative. The patient had an endoscopy done by Dr. Clements yesterday, it shows no evidence of fresh bleeding from the stomach, and the patient has some gastritis with bile causing it, but there was no fresh bleeding. Her FOBT was positive. The patient is feeling much better. She is conscious, alert, and oriented, not in any distress. Blood pressure 128/74, pulse 64, respirations 18, temperature 99.4, and her blood pressure came fairly good, as it was low yesterday and she is showing gradual progress. JON HIGUERA MD CM:PNTRANS [id number] [id number] JON HIGUERA MD 10/05/16 0042 interface
--- NOTE | ~2016-10-01 | PR ---
[place], [place] PROGRESS NOTE NAME: [id number] UNIT #: [id number] ROOM: [facility] DOCTOR: HUMBLE BOWLING MD BIRTHDATE: [birth year] DOS: 10/03/2016 REASON FOR FOLLOWUP: End-stage renal disease. SUBJECTIVE: The patient today reports feeling better. She has no major complaints. Denies any chest pain or shortness of breath. She reports that her diarrhea has resolved. She did have dialysis treatment earlier today. OBJECTIVE: VITAL SIGNS: On physical examination, blood pressure was 137/57, temperature 98.7, heart rate 102. GENERAL: The patient is awake, alert, sitting comfortably on the chair. HEENT: Pupils are equal and reactive. Mucous membranes are moist. NECK: Supple. There is no jugular venous distention. LUNGS: Clear to auscultation. HEART: Sounds were irregularly irregular. ABDOMEN: Soft, nontender. EXTREMITIES: She has a left upper extremity AV fistula with a good thrill. She got no lower extremities edema. LABORATORY DATA: Laboratory details obtained today, glucose 84, BUN 41, creatinine 4.24. Estimated GFR was 10 mL per minute. Sodium was 137, potassium 3.7, chloride 102, carbon dioxide 25, total calcium was 5.8, phosphorus 3.8, albumin 2.5. White count was 15.5, hemoglobin 10.2, hematocrit 31 and platelet count 114. ASSESSMENT AND PLAN: 1. End-stage renal disease, on intermittent hemodialysis 3 times a week, Wednesday, and Wednesday, the patient had completed dialysis treatment today x 4 hours, which she tolerated fairly well with fluid removal. 2. Severe sepsis with , presently on antibiotics by Infectious Disease. The patient is hemodynamically stable and she is off pressors. 3. Hypocalcemia, her calcium levels have been running very low and she has received calcium gluconate yesterday as well today. The cause of her hypocalcemia is probably related to her recent use of Sensipar, which has been discontinued during her hospitalization. We will obtain ionized calcium to better address her degree of hypocalcemia, meanwhile she will be started on calcitriol 0.25 mcg daily. 4. Anemia. The patient has been transfused 2 units of packed red blood cells yesterday and her hemoglobin today has improved up to 10.2. She has been treated with Epogen 02954 units on dialysis. PLAN: 1. Obtain ionized calcium. 2. Start calcitriol 0.25 mcg daily. 3. Continue intermittent dialysis 3 times a week, Wednesday, and Wednesday. 4. From our point of view, the patient can be transferred to a telemetry bed. [place], [place] PROGRESS NOTE NAME: YOSSI MULLINS UNIT #: [id number] ROOM: [facility] DOCTOR: HUMBLE BOWLING MD BIRTHDATE: [birth year] HUMBLE BOWLING MD CM:PNTRANS 1717 HUMBLE BOWLING MD 10/04/1619 interface
--- NOTE | ~2016-10-01 | O ---
[place], [place] OPERATIVE NOTE NAME: YOSSI MULLINS UNIT #: [id number] ROOM: [facility] DOCTOR: CAROL BOWDEN,WILDA BIRTHDATE: [birth year] DOS: 10/02/2016 GASTROENDOSCOPIC REPORT HISTORY OF PRESENT ILLNESS: A 75-year-old patient who has presented with chief complaint of severe anemia, sudden drop in H and H, prolonged INR, Coumadin toxicity, status post correction fresh frozen plasma, vitamin K, packed cell transfusion. All has been taken care of and we are concerned about the source of bleeding in her. PROCEDURE: Today's procedure part of investigation is panendoscopy plus biopsy. PREMEDICATIONS: Versed and Diprivan. SCOPE: Olympus forward-viewing gastroscope Q10 video. REPORT: After putting the patient in the left lateral position and after application of lubricant to the scope, the scope was introduced. Thereafter, under direct visualization, I advanced through the length of the esophagus without difficulty. Gastric pouch was entered, bile reflux gastritis was identified. Gastric contents were suctioned out. Biopsy from antrum was obtained. Duodenal bulb, second and third part within normal limit. No active bleeding was noticed. The patient extubated, tolerated procedure well. IMPRESSION: Bile reflux gastritis or bleeding that has happened and drop in H and H is secondary to significant prolonged INR secondary to Coumadin toxicity. PLAN AND DISCUSSION: At this time, I will proceed with soft diet in this patient. Protonix 40 mg q. day and follow up on H and H. WILDA MEDINA MD CM:OPRECORD:OPERATIVE NOTE [id number] WILDA MEDINA MD 10/02/162055 interface
--- NOTE | ~2016-10-01 | CON ---
[place], [place] REPORT OF CONSULTATION NAME: YOSSI MULLINS UNIT #: [id number] ROOM: [facility] DOCTOR: WILDA MEDINA MD BIRTHDATE: [birth year] DOS: 10/04/2016 HISTORY OF PRESENT ILLNESS: This is a 75-year-old patient who was presented with chief complaint of GI bleed. The patient underwent endoscopic evaluation and was found to have gastritis. No active bleeding was noticed. PAST MEDICAL HISTORY: Associated obesity, hypertension, dementia, ileus, atrial fibrillation, congestive heart failure, all has been appreciated. Gastroesophageal reflux is known. Prolonged INR has been expressed. C. diff toxin has been negative. LABORATORY DATA: Blood cultures have been normal. Comprehensive metabolic panel: BUN and creatinine 25 and 3.6 have been addressed. CBC differential, H and H of 10 and 33, white blood cell 11 has been seen. REVIEW OF SYSTEMS: HEENT: Denies double vision, blurred vision. RESPIRATORY: Denies shortness of breath. CARDIOVASCULAR: Denies chest pain. DIGESTIVE SYSTEM: No hematemesis. PHYSICAL EXAMINATION: VITAL SIGNS: Stable. HEENT: Head normocephalic, nontraumatic. Mouth and buccal mucosa benign. NECK: Supple, no thyromegaly. CHEST: Symmetric anatomy, equal expansion. Decreased air entry in general. HEART: Normal sinus rhythm. No gallop, no murmur. ABDOMEN: Soft. No hepato-organomegaly. Bowel sounds present. No pulsatile mass. EXTREMITIES: No cyanosis, no pedal edema. NEUROLOGIC: Alert, oriented to time, place and person. IMPRESSION: Anemia, gastritis, gastroesophageal reflux and no active gastrointestinal bleed. OTHER ADJUNCTIVE DIAGNOSES: As outlined in the paragraph of past medical and surgical history. The patient is undergoing ICU management. WILDA MEDINA MD CM:CONSTR:REPORT OF CONSULTATION 1026 10/04/16 1945 interface
--- NOTE | ~2016-10-01 | PR ---
[place], [place] PROGRESS NOTE NAME: YOSSI MULLINS UNIT #: [id number] ROOM: [facility] DOCTOR: KALEN BOWDEN,JON Mares BIRTHDATE: [birth year] DOS: 10/02/2016 The patient has been admitted to ICU and he has very much for longtime and GI bleeding and had drop in hemoglobin and hematocrit has received 2 units of blood and had gastroscopy done and the patient also was hypotensive either. I saw the patient personally and discussed also with the resident. JON HIGUERA MD CM:KALI [id number] JON HIGUERA MD 10/06/16 0413 interface
[~2016-10-01 11:11] MED LIST changes: +COUMADIN5 M2 PO; +D-1000 185 MG-11 TAB PO; +DILTIAZEM 24HR120 MG PO; +MUCINEX ER600 MG PO; +PREDNISONE10 MG PO
[2016-10-01] MEDS ORDERED: ACETAMINOPHEN-H1 TA2 PO (11:19)
[2016-10-01] MEDS ORDERED: ASPIRIN ADULT L81 M2 PO (11:20)
[2016-10-01] MEDS ORDERED: AMLODIPINE BESYL5 MG PO (11:20)
[2016-10-01] MEDS ORDERED: CALCIUM ACETAT667 MG PO (11:21)
[2016-10-01] MEDS ORDERED: VITAMIN D-32000 UNIT PO (11:21)
[2016-10-01] MEDS ORDERED: SENSIPAR30 MG PO (11:21)
[2016-10-01] MEDS ORDERED: CLONIDINE HCL0.2 MG PO (11:22)
[2016-10-01] MEDS ORDERED: LEVEMIR10 ML SC (11:22)
[2016-10-01] MEDS ORDERED: DONEPEZIL HCL5 MG PO (11:22)
[2016-10-01] MEDS ORDERED: LACTULOSE20 GM/30 M PO (11:23)
[2016-10-01] MEDS ORDERED: METOPROLOL SUCC25 M2 PO (11:23)
[2016-10-01] MEDS ORDERED: PRAVASTATIN SOD40 MG PO (11:23)
[2016-10-01] MEDS ORDERED: PANTOPRAZOLE SO40 MG PO (11:23)
[2016-10-01] MEDS ORDERED: VALSARTAN160 MG PO (11:24)
[2016-10-01] MEDS ORDERED: DILTIAZEM HCL120 M2 PO (11:24)
[2016-10-01] MEDS ORDERED: WARFARIN SOD5 MG PO (11:24)
[2016-10-01 12:05] LABS: HEMATOCRIT 39.6 % (37.0-47.0); HEMOGLOBIN 12.9 g/dl (12.0-16.0); MEAN CORPUSCULAR HGB 32.6 pg (27.0-31.0); MEAN CORPUSCULAR HGB CONC 32.6 g/dl (33.0-37.0); MEAN PLATELET VOLUME 12.2 fl (9.6-12.3); PLATELET COUNT AUTOMATED 274 10*3/uL (130-400); RED BLOOD COUNT 3.96 10*6/uL (4.10-5.10); RED CELL DISTRI WIDTH 14.7 % (0-14.5)
[2016-10-01 12:12] LABS: BILIRUBIN, TOTAL 1.4 mg/dl (0.2-1.0); MAGNESIUM 1.9 mg/dL (1.5-2.1); TOTAL PROTEIN 6.6 gm/dL (6.4-8.2)
[2016-10-01 12:13] LABS: CKMB 3.3 ng/ml (0.5-3.6)
[2016-10-01 12:16] LABS: ABG BASE EXCESS 0.6 mmol/L (-2.0-2.0); ABG CO2 CONTENT 27.7 mmol/L (23-27); ABG HCO3 26.2 mmol/l (22-26); ABG TEMPERATURE 98.3 F (98.0-99.0); ARTERIAL BLOOD GAS PH 7.353 (7.35-7.45)
[2016-10-01 12:18] LABS: LYMPHOCYTE # 0.4 10*3/uL (1.3-4.4); MONOCYTE # 0.4 10*3/uL (0.1-1.0); NEUTROPHILS 98 % (47-73); PLATELET SUFFICIENCY NORMAL (NORMAL); TOTAL CELLS COUNTED 100 #CELLS
[2016-10-01 12:20] LABS: WHITE BLOOD COUNT 41.8 10*3/uL (4.8-10.8)
[2016-10-01 12:24] LABS: ARTERIAL BLOOD GAS PO2 18.2 mmHg (80-90)
[2016-10-01 12:24] LABS: TROPONIN I 0.053 ng/ml (<0.045)
[2016-10-01 13:47] LABS: LA>2 REFLEX 2 HR DRAW NOW
[2016-10-01 17:32] LABS: LA>2 REFLEX 4 HR DRAW NOW
[2016-10-02] VITALS (62 sets, daily range): BP systolic 92–192; BP diastolic 33–74
[2016-10-02 00:39] LABS: TROPONIN I 0.062 ng/ml (<0.045)
[2016-10-02 06:40] LABS: MEAN CELL VOLUME 99.2 fl (81.0-99.0); MEAN CORPUSCULAR HGB 32.8 pg (27.0-31.0); MEAN CORPUSCULAR HGB CONC 33.1 g/dl (33.0-37.0); MEAN PLATELET VOLUME 11.9 fl (9.6-12.3); PLATELET COUNT AUTOMATED 198 10*3/uL (130-400); RED BLOOD COUNT 2.47 10*6/uL (4.10-5.10); RED CELL DISTRI WIDTH 14.6 % (0-14.5); WHITE BLOOD COUNT 28.3 10*3/uL (4.8-10.8)
[2016-10-02 06:44] LABS: CKMB 3.4 ng/ml (0.5-3.6)
[2016-10-02 07:01] LABS: ALBUMIN 3.4 gm/dl (3.1-4.5); MAGNESIUM 1.5 mg/dL (1.5-2.1); POTASSIUM 5.9 mmol/L (3.5-5.1)
[2016-10-02 07:07] LABS: PROTHROMBIN TIME 72.8 SECONDS (9.0-12.4)
[2016-10-02 07:08] LABS: TROPONIN I 0.084 ng/ml (<0.045)
[2016-10-02 07:09] LABS: BILIRUBIN, TOTAL 1.1 mg/dl (0.2-1.0); FREE T4 0.67 ng/dl (0.76-1.46); PHOSPHOROUS 7.3 mg/dL (2.5-4.9); THYROID STIM HORMONE (HS) 1.07 uIU/ml (0.358-4.75); TOTAL PROTEIN 5.6 gm/dL (6.4-8.2)
[2016-10-02 07:15] LABS: INTERNATIONAL NORM RATIO 6.1 (2.0-3.5)
[2016-10-02 07:18] LABS: HEMATOCRIT 24.5 % (37.0-47.0); HEMOGLOBIN 8.1 g/dl (12.0-16.0)
[2016-10-02 07:19] LABS: LYMPHOCYTE # 1.4 10*3/uL (1.3-4.4); MONOCYTE # 0.8 10*3/uL (0.1-1.0); NEUTROPHILS 92 % (47-73); OVALOCYTES FEW; TOTAL CELLS COUNTED 100 #CELLS
[2016-10-02 07:20] LABS: ACANTHOCYTES FEW; PLATELET SUFFICIENCY NORMAL (NORMAL); POLYCHROMASIA SLIGHT
[2016-10-02 08:04] LABS: VITAMIN D, 25-HYDROXY 38.4 ng/mL (30-100)
[2016-10-02 08:05] LABS: FOLIC ACID 11.02 ng/mL (>5.38)
[2016-10-02 14:48] LABS: HEMATOCRIT 29.4 % (37.0-47.0); HEMOGLOBIN 9.9 g/dl (12.0-16.0)
[2016-10-02 14:55] LABS: INTERNATIONAL NORM RATIO 2.2 (2.0-3.5); PROTHROMBIN TIME 24.8 SECONDS (9.0-12.4)
[2016-10-02 15:27] LABS: POTASSIUM 3.7 mmol/L (3.5-5.1)
[2016-10-03] VITALS: BP 125/41
[2016-10-03 04:00] VITALS: BP 128/74
[2016-10-03 06:40] LABS: ALBUMIN 2.5 gm/dl (3.1-4.5); POTASSIUM 3.7 mmol/L (3.5-5.1)
[2016-10-03 06:41] LABS: PHOSPHOROUS 3.8 mg/dL (2.5-4.9)
[2016-10-03 07:30] LABS: BASO % 0.1 % (0.0-1.0); EOS # 0.1 10*3/uL (0.0-0.4); EOS % 0.4 % (1.0-4.0); HEMOGLOBIN 10.2 g/dl (12.0-16.0); IG # 0.3 10*3/uL (0.0-0.1); LYMPH # 0.6 10*3/uL (1.3-4.4); LYMPH % 3.6 % (27.0-41.0); MEAN CORPUSCULAR HGB 30.6 pg (27.0-31.0); MEAN CORPUSCULAR HGB CONC 32.9 g/dl (33.0-37.0); MONO # 0.8 10*3/uL (0.1-1.0); MONO % 5.2 % (3.0-9.0); NEUT # 13.8 10*3/uL (2.3-7.9); RED BLOOD COUNT 3.33 10*6/uL (4.10-5.10); RED CELL DISTRI WIDTH 18.8 % (0-14.5); WHITE BLOOD COUNT 15.5 10*3/uL (4.8-10.8)
[2016-10-03 07:35] LABS: MEAN CELL VOLUME 93.1 fl (81.0-99.0); PLATELET COUNT AUTOMATED 114 10*3/uL (130-400)
[2016-10-03 08:00] VITALS: BP 141/37
[2016-10-03 12:00] VITALS: BP 124/55
[2016-10-03 16:00] VITALS: BP 137/57
[2016-10-03 20:00] VITALS: BP 102/81
[2016-10-04] VITALS: BP 110/70
[2016-10-04 04:00] VITALS: BP 128/56
[2016-10-04 06:21] LABS: BASO % 0.1 % (0.0-1.0); EOS # 0.2 10*3/uL (0.0-0.4); EOS % 1.5 % (1.0-4.0); HEMATOCRIT 33.4 % (37.0-47.0); HEMOGLOBIN 10.8 g/dl (12.0-16.0); IG # 0.2 10*3/uL (0.0-0.1); LYMPH # 0.6 10*3/uL (1.3-4.4); LYMPH % 5.5 % (27.0-41.0); MEAN CELL VOLUME 94.6 fl (81.0-99.0); MEAN CORPUSCULAR HGB 30.6 pg (27.0-31.0); MEAN CORPUSCULAR HGB CONC 32.3 g/dl (33.0-37.0); MEAN PLATELET VOLUME 11.7 fl (9.6-12.3); MONO # 0.6 10*3/uL (0.1-1.0); MONO % 5.5 % (3.0-9.0); NEUT # 9.5 10*3/uL (2.3-7.9); NEUT % 85.3 % (47.0-73.0); PLATELET COUNT AUTOMATED 103 10*3/uL (130-400); RED BLOOD COUNT 3.53 10*6/uL (4.10-5.10); RED CELL DISTRI WIDTH 18.4 % (0-14.5); WHITE BLOOD COUNT 11.1 10*3/uL (4.8-10.8)
[2016-10-04 06:49] LABS: ALBUMIN 2.3 gm/dl (3.1-4.5); BILIRUBIN, TOTAL 1.1 mg/dl (0.2-1.0); POTASSIUM 3.8 mmol/L (3.5-5.1); TOTAL PROTEIN 4.6 gm/dL (6.4-8.2)
[2016-10-04 08:00] VITALS: BP 145/58
[2016-10-04 12:00] VITALS: BP 98/49
[2016-10-04 16:00] VITALS: BP 98/52
[2016-10-04 20:00] VITALS: BP 122/58
[2016-10-05] VITALS: BP 117/44
[2016-10-05 04:00] VITALS: BP 127/61
[2016-10-05 08:00] VITALS: BP 137/67
[2016-10-05 10:12] LABS: ABG BASE EXCESS 2.5 mmol/L (-2.0-2.0); ABG CO2 CONTENT 23.7 mmol/L (23-27); ABG TEMPERATURE 98.3 F (98.0-99.0); ARTERIAL BLOOD GAS PH 7.588 (7.35-7.45)
[2016-10-05 10:51] LABS: BASO % 0.1 % (0.0-1.0); EOS # 0.1 10*3/uL (0.0-0.4); EOS % 1.1 % (1.0-4.0); HEMATOCRIT 36.5 % (37.0-47.0); HEMOGLOBIN 12.1 g/dl (12.0-16.0); IG # 0.2 10*3/uL (0.0-0.1); LYMPH # 0.5 10*3/uL (1.3-4.4); LYMPH % 4.1 % (27.0-41.0); MEAN CELL VOLUME 94.1 fl (81.0-99.0); MEAN CORPUSCULAR HGB 31.2 pg (27.0-31.0); MEAN CORPUSCULAR HGB CONC 33.2 g/dl (33.0-37.0); MEAN PLATELET VOLUME 11.9 fl (9.6-12.3); MONO # 0.6 10*3/uL (0.1-1.0); MONO % 4.7 % (3.0-9.0); NEUT # 10.3 10*3/uL (2.3-7.9); NEUT % 88.7 % (47.0-73.0); PLATELET COUNT AUTOMATED 104 10*3/uL (130-400); RED BLOOD COUNT 3.88 10*6/uL (4.10-5.10); RED CELL DISTRI WIDTH 18.1 % (0-14.5); WHITE BLOOD COUNT 11.6 10*3/uL (4.8-10.8)
[2016-10-05 10:57] LABS: INTERNATIONAL NORM RATIO 1.1 (2.0-3.5); PROTHROMBIN TIME 11.3 SECONDS (9.0-12.4)
[2016-10-05 11:01] LABS: POTASSIUM 3.7 mmol/L (3.5-5.1)
[2016-10-05 12:00] VITALS: BP 147/59
[2016-10-05 16:00] VITALS: BP 151/57
[2016-10-05 20:00] VITALS: BP 97/38
[2016-10-06] VITALS: BP 142/56
[2016-10-06 04:00] VITALS: BP 163/64
[2016-10-06 06:00] LABS: BASO % 0.1 % (0.0-1.0); EOS # 0.2 10*3/uL (0.0-0.4); EOS % 2.5 % (1.0-4.0); HEMOGLOBIN 10.4 g/dl (12.0-16.0); IG # 0.1 10*3/uL (0.0-0.1); LYMPH # 0.6 10*3/uL (1.3-4.4); LYMPH % 6.6 % (27.0-41.0); MEAN CELL VOLUME 96.1 fl (81.0-99.0); MEAN CORPUSCULAR HGB 31.2 pg (27.0-31.0); MEAN CORPUSCULAR HGB CONC 32.5 g/dl (33.0-37.0); MEAN PLATELET VOLUME 11.9 fl (9.6-12.3); MONO # 0.6 10*3/uL (0.1-1.0); MONO % 6.1 % (3.0-9.0); NEUT % 83.8 % (47.0-73.0); PLATELET COUNT AUTOMATED 97 10*3/uL (130-400); RED BLOOD COUNT 3.33 10*6/uL (4.10-5.10); WHITE BLOOD COUNT 9.5 10*3/uL (4.8-10.8)
[2016-10-06 06:06] LABS: ALBUMIN 2.2 gm/dl (3.1-4.5); POTASSIUM 3.7 mmol/L (3.5-5.1)
[2016-10-06 06:21] LABS: INTERNATIONAL NORM RATIO 1.3 (2.0-3.5); PROTHROMBIN TIME 14.5 SECONDS (9.0-12.4)
[2016-10-06 08:00] VITALS: BP 142/86
[2016-10-06 12:00] VITALS: BP 140/61
[2016-10-06 16:25] VITALS: BP 157/61
[2016-10-06 20:00] VITALS: BP 138/68
[2016-10-07] VITALS: BP 112/48
[2016-10-07 06:21] LABS: BASO % 0.2 % (0.0-1.0); EOS # 0.3 10*3/uL (0.0-0.4); EOS % 2.5 % (1.0-4.0); HEMATOCRIT 36.7 % (37.0-47.0); HEMOGLOBIN 11.5 g/dl (12.0-16.0); IG # 0.1 10*3/uL (0.0-0.1); LYMPH # 0.8 10*3/uL (1.3-4.4); LYMPH % 7.3 % (27.0-41.0); MEAN CELL VOLUME 97.9 fl (81.0-99.0); MEAN CORPUSCULAR HGB 30.7 pg (27.0-31.0); MEAN CORPUSCULAR HGB CONC 31.3 g/dl (33.0-37.0); MEAN PLATELET VOLUME 11.9 fl (9.6-12.3); MONO # 0.7 10*3/uL (0.1-1.0); MONO % 6.5 % (3.0-9.0); NEUT # 9.2 10*3/uL (2.3-7.9); NEUT % 82.7 % (47.0-73.0); PLATELET COUNT AUTOMATED 93 10*3/uL (130-400); RED BLOOD COUNT 3.75 10*6/uL (4.10-5.10); RED CELL DISTRI WIDTH 17.9 % (0-14.5); WHITE BLOOD COUNT 11.1 10*3/uL (4.8-10.8)
[2016-10-07 06:31] LABS: INTERNATIONAL NORM RATIO 1.3 (2.0-3.5); PROTHROMBIN TIME 13.6 SECONDS (9.0-12.4)
[2016-10-07 06:34] LABS: ALBUMIN 2.3 gm/dl (3.1-4.5); BILIRUBIN, TOTAL 0.7 mg/dl (0.2-1.0); POTASSIUM 4.4 mmol/L (3.5-5.1); TOTAL PROTEIN 5.3 gm/dL (6.4-8.2)
[2016-10-07 08:00] VITALS: BP 140/74
[2016-10-07 12:00] VITALS: BP 106/50
[2016-10-07 16:00] VITALS: BP 118/74; BP 123/102
[2016-10-07 20:00] VITALS: BP 153/76
[2016-10-08] VITALS: BP 127/61; BP 136/59
[2016-10-08 06:57] LABS: BASO % 0.3 % (0.0-1.0); EOS # 0.2 10*3/uL (0.0-0.4); EOS % 2.3 % (1.0-4.0); HEMATOCRIT 34.3 % (37.0-47.0); HEMOGLOBIN 10.5 g/dl (12.0-16.0); IG # 0.1 10*3/uL (0.0-0.1); LYMPH # 0.8 10*3/uL (1.3-4.4); LYMPH % 9.6 % (27.0-41.0); MEAN CORPUSCULAR HGB 30.6 pg (27.0-31.0); MEAN CORPUSCULAR HGB CONC 30.6 g/dl (33.0-37.0); MEAN PLATELET VOLUME 12.2 fl (9.6-12.3); MONO # 0.4 10*3/uL (0.1-1.0); MONO % 5.3 % (3.0-9.0); NEUT # 6.5 10*3/uL (2.3-7.9); NEUT % 81.9 % (47.0-73.0); PLATELET COUNT AUTOMATED 72 10*3/uL (130-400); RED BLOOD COUNT 3.43 10*6/uL (4.10-5.10); RED CELL DISTRI WIDTH 17.4 % (0-14.5); WHITE BLOOD COUNT 7.9 10*3/uL (4.8-10.8)
[2016-10-08 07:31] LABS: ALBUMIN 2.2 gm/dl (3.1-4.5); BILIRUBIN, TOTAL 0.8 mg/dl (0.2-1.0); INTERNATIONAL NORM RATIO 1.1 (2.0-3.5); POTASSIUM 4.6 mmol/L (3.5-5.1); PROTHROMBIN TIME 12.1 SECONDS (9.0-12.4)
[2016-10-08 07:33] LABS: TOTAL PROTEIN 5.1 gm/dL (6.4-8.2)
[2016-10-08 08:00] VITALS: BP 131/50
[2016-10-08 12:00] VITALS: BP 120/72
[2016-10-08 16:00] VITALS: BP 118/38
[2016-10-08 19:51] VITALS: BP 150/71
[2016-10-09] VITALS: BP 150/80
[2016-10-09 07:03] LABS: BASO % 0.3 % (0.0-1.0); EOS # 0.2 10*3/uL (0.0-0.4); EOS % 2.6 % (1.0-4.0); HEMATOCRIT 32.7 % (37.0-47.0); HEMOGLOBIN 10.1 g/dl (12.0-16.0); LYMPH # 0.6 10*3/uL (1.3-4.4); LYMPH % 8.4 % (27.0-41.0); MEAN CELL VOLUME 99.7 fl (81.0-99.0); MEAN CORPUSCULAR HGB 30.8 pg (27.0-31.0); MEAN CORPUSCULAR HGB CONC 30.9 g/dl (33.0-37.0); MEAN PLATELET VOLUME 11.9 fl (9.6-12.3); MONO # 0.5 10*3/uL (0.1-1.0); MONO % 6.2 % (3.0-9.0); PLATELET COUNT AUTOMATED 66 10*3/uL (130-400); RED BLOOD COUNT 3.28 10*6/uL (4.10-5.10); WHITE BLOOD COUNT 7.4 10*3/uL (4.8-10.8)
[2016-10-09 07:33] LABS: ALBUMIN 2.3 gm/dl (3.1-4.5); BILIRUBIN, TOTAL 0.7 mg/dl (0.2-1.0); POTASSIUM 4.7 mmol/L (3.5-5.1)
[2016-10-09 08:00] VITALS: BP 164/65
[2016-10-09 12:00] VITALS: BP 112/44
[2016-10-09] MEDS ORDERED: LEVEMIR10 ML SC (14:40)
[2016-10-09] MEDS ORDERED: XARE15TA PO (14:40)
[2016-10-11 15:05] LABS: HLA CLASS 1 ANTIBODY Negative (Negative); IIb/IIIa ANTIBODY Negative (Negative); Ia/IIa ANTIBODY Negative (Negative)
[2016-10-11 17:09] LABS: PLT ASSOCIATED ANTI-la/lla Negative (Negative); PLT ASSOCIATED ANTI-llb/llla Negative (Negative)
== END 2016-10-09 17:37 | disposition home health service (06) | DRG 871 ==
LOC: ED 11:11 → EDHOLD 12:42 → ICCU 12:42 → EDHOLD 13:00 → ICCU 13:44 → 5E 10-06 14:58
PROVIDERS: Anesthesiology; Hospitalist; Internal Medicine; Internal Medicine Cardiovascular Disease; Internal Medicine Nephrology; Registered Nurse; Student in an Organized Health Care Education/Training Program
PROC: 02HV33Z Insertion of Infusion Device into Superior Vena Cava, Percutaneous Approach (ICD-10-PCS; principal; 2016-10-01)
PROC: 0DB68ZX Excision of Stomach, Via Natural or Artificial Opening Endoscopic, Diagnostic (ICD-10-PCS; 2016-10-02)
PROC: B543ZZA Ultrasonography of Right Jugular Veins, Guidance (ICD-10-PCS; 2016-10-02)
PROC: 5A1D60Z (ICD-10-PCS; 2016-10-03)
DX: A41.89 Other specified sepsis (principal); J96.21 Acute and chronic respiratory failure with hypoxia; K72.00 Acute and subacute hepatic failure without coma; G93.41 Metabolic encephalopathy; R65.21 Severe sepsis with septic shock; K29.71 Gastritis, unspecified, with bleeding; I13.2 Hypertensive heart and chronic kidney disease with heart failure and with stage 5 chronic kidney disease, or end stage renal disease; N18.6 End stage renal disease; I48.1 Persistent atrial fibrillation; I50.32 Chronic diastolic (congestive) heart failure; E46 Unspecified protein-calorie malnutrition; K56.1 Intussusception; J44.9 Chronic obstructive pulmonary disease, unspecified; E11.22 Type 2 diabetes mellitus with diabetic chronic kidney disease; K21.9 Gastro-esophageal reflux disease without esophagitis; E66.9 Obesity, unspecified; E87.5 Hyperkalemia; E83.51 Hypocalcemia; E80.6 Other disorders of bilirubin metabolism; G47.33 Obstructive sleep apnea (adult) (pediatric); D50.0 Iron deficiency anemia secondary to blood loss (chronic); F03.90 Unspecified dementia, unspecified severity, without behavioral disturbance, psychotic disturbance, mood disturbance, and anxiety; D53.9 Nutritional anemia, unspecified; K59.00 Constipation, unspecified; I25.10 Atherosclerotic heart disease of native coronary artery without angina pectoris; I27.2 Other secondary pulmonary hypertension; I07.1 Rheumatic tricuspid insufficiency; T45.515A Adverse effect of anticoagulants, initial encounter; Y92.89 Other specified places as the place of occurrence of the external cause; Z79.84 Long term (current) use of oral hypoglycemic drugs; Z79.82 Long term (current) use of aspirin; Z79.899 Other long term (current) drug therapy; Z86.73 Personal history of transient ischemic attack (TIA), and cerebral infarction without residual deficits; Z79.01 Long term (current) use of anticoagulants; Z68.31 Body mass index [BMI] 31.0-31.9, adult; Z99.2 Dependence on renal dialysis; Z90.710 Acquired absence of both cervix and uterus; Z90.49 Acquired absence of other specified parts of digestive tract; Z83.3 Family history of diabetes mellitus; Z82.3 Family history of stroke; Z82.49 Family history of ischemic heart disease and other diseases of the circulatory system

== ENCOUNTER → 2016-10-26 | Outpatient (CLI) | payer MEDICARE ==
[~2016-10-26] MED LIST changes: +ACETAMINOPHEN-H1 TA2 PO; +AMLODIPINE BESYL5 MG PO; +ASPIRIN ADULT L81 M2 PO; +CALCIUM ACETAT667 MG PO; +CLONIDINE HCL0.2 MG PO; +DILTIAZEM HCL120 M2 PO; +DONEPEZIL HCL5 MG PO; +LACTULOSE20 GM/30 M PO; +LEVEMIR10 ML SC; +METOPROLOL SUCC25 M2 PO; +PANTOPRAZOLE SO40 MG PO; +PRAVASTATIN SOD40 MG PO; +SENSIPAR30 MG PO; +VALSARTAN160 MG PO; +VITAMIN D-32000 UNIT PO; +WARFARIN SOD5 MG PO; +XARE15TA PO
[2016-10-26 14:53] LABS: HEMOGLOBIN 10.3 g/dl (12.0-16.0); MEAN CORPUSCULAR HGB 31.5 pg (27.0-31.0); MEAN CORPUSCULAR HGB CONC 30.3 g/dl (33.0-37.0); MEAN PLATELET VOLUME 11.8 fl (9.6-12.3); PLATELET COUNT AUTOMATED 297 10*3/uL (130-400); RED BLOOD COUNT 3.27 10*6/uL (4.10-5.10); RED CELL DISTRI WIDTH 17.7 % (0-14.5); WHITE BLOOD COUNT 8.5 10*3/uL (4.8-10.8)
[2016-10-26 15:16] LABS: BASOPHIL # 0.1 10*3/uL (0-0.1); BASOPHILS 1 % (0-1); EOSINOPHIL # 0.1 10*3/uL (0-0.4); EOSINOPHILS 1 % (1-4); LYMPHOCYTE # 2.1 10*3/uL (1.3-4.4); METAMYELOCYTES 2 % (0-0); MONOCYTE # 0.5 10*3/uL (0.1-1.0); MYELOCYTES 2 % (0-0); NEUTROPHIL # 5.4 10*3/uL (2.3-7.9); NEUTROPHILS 63 % (47-73); TOTAL CELLS COUNTED 100 #CELLS
[2016-10-26 15:18] LABS: PLATELET SUFFICIENCY NORMAL (NORMAL)
[2016-10-26 15:20] LABS: POLYCHROMASIA SLIGHT
[2016-10-26 15:21] LABS: TEAR DROP CELLS FEW
== END | disposition home or self-care (01) ==
LOC: LAB 13:40 → US 15:00
PROVIDERS: Internal Medicine
DX: M48.56XA Collapsed vertebra, not elsewhere classified, lumbar region, initial encounter for fracture (principal); M48.07 Spinal stenosis, lumbosacral region; M47.897 Other spondylosis, lumbosacral region; N93.9 Abnormal uterine and vaginal bleeding, unspecified; Z90.710 Acquired absence of both cervix and uterus

== ENCOUNTER 2017-05-31 10:10 | Inpatient (IN) | payer MEDICARE ==
[~2017-05-31] VITALS: Ht 152.4 cm; Wt 92.6 kg
--- NOTE | ~2017-05-31 | PR ---
[place], [place] PROGRESS NOTE NAME: YOSSI MULLINS UNIT #: [id number] ROOM: 402 DOCTOR: NELSON JENKINS MD BIRTHDATE: [birth year] DOS: 06/06/2017 SUBJECTIVE: She has been noted quite comfortable at this time. The wheezing, shortness of breath, the other symptoms have been gradually subsiding. Denies symptoms of chest pain. She has received the hemodialysis yesterday. OBJECTIVE: VITAL SIGNS: For the patient which was recorded shows the temperature noted as normal. The respiratory rate of the patient recorded as 18. Heart rate 74, blood pressure 120/53. Pulse ox saturation as 100% on 2 liter nasal cannula. HEENT: Examination shows head was atraumatic. No icterus. NECK: Supple. CARDIOVASCULAR: S1, S2 is audible. LUNGS: The patient was noted without any wheezing or crackles at the present time. ABDOMEN: Soft, obese, nontender. EXTREMITIES: Without any acute edema. LABORATORY DATA: The chest x-ray of the patient that was done noted with small area of atelectasis in the left lower lobe, resolution previous noted pleural fluid. IMPRESSION: 1. The patient who has been noted currently improving acute exacerbation of chronic obstructive pulmonary disease, acute bronchitis as well as resolution of the small left pleural fluid. 2. End-stage renal failure, on hemodialysis. 3. Chronic moderate obesity. PLAN OF MANAGEMENT: Continuation of the current therapy, plan of management previously in progress. Other supportive therapy, plan of management and care. Usual treatment. Additional treatment changes for the patient needs to be done based on the progression of the illness. Usual care. [place], [place] PROGRESS NOTE NAME: YOSSI MULLINS UNIT #: [id number] ROOM: 402 DOCTOR: NELSON JENKINS MD BIRTHDATE: [birth year] NELSON TREJO MD CM:PNTRANS [phone] NELSON CHEUNG MD 06/06/17 1737 interface
--- NOTE | ~2017-05-31 | PR ---
[place], [place] PROGRESS NOTE NAME: YOSSI MULLINS UNIT #: [id number] ROOM: 402 DOCTOR: NELSON JENKINS MD BIRTHDATE: [birth year] DOS: 06/10/2017 The patient was independently seen and examined today. All the labs, which were done for this patient were personally reviewed. The assessment of the patient was personally completed. The changes in medical management and recommendation was made today for this patient personally for this visit. The note done by the director global medical affairs was approved. SUBJECTIVE: The patient was noted with reduction in symptoms of shortness of breath. The workup was completed and a diagnosis of pulmonary embolism was excluded. This morning, the patient has been noted comfortable. PHYSICAL EXAMINATION: VITAL SIGNS: Reviewed and noted as normal. The pulse oxygen saturation on 2 liters was 100% saturation. LUNGS:. Noted without any wheeze or crackles. Breath sounds are noted mildly diminished bilaterally. ABDOMEN: Soft, nontender. EXTREMITIES: Without any acute edema. LABORATORY DATA: CT of the chest of the patient does not show any dense pulmonary embolism yesterday, small pleural fluid noted with an area of atelectasis, remains unchanged for this patient as compared to previous testing. Ultrasound of bilateral lower extremity was also done that was noted negative for any deep venous thrombosis. IMPRESSION: 1. The patient's shortness of breath is most likely related to underlying anxiety disorder noted with stable small left-sided pleural fluid, no evidence of pulmonary embolism, otherwise noted with progressive resolution of acute exacerbation of chronic obstructive pulmonary disease. 2. End-stage renal failure, hemodialysis regularly. PLAN OF MANAGEMENT: No further change of treatment at this time will be necessary. The patient will be continued on current plan of management with discharge planning as per primary care attending. [place], [place] PROGRESS NOTE NAME: YOSSI MULLINS UNIT #: [id number] ROOM: 402 DOCTOR: NELSON JENKINS MD BIRTHDATE: [birth year] NELSON TREJO MD CM:PNTRANS [id number] NELSON CHEUNG MD 06/11/17 0246 interface
--- NOTE | ~2017-05-31 | PR ---
[place], [place] PROGRESS NOTE NAME: YOSSI MULLINS UNIT #: [id number] ROOM: 402 DOCTOR: MAYA CHEUNG MD,NELSON BIRTHDATE: [birth year] DOS: 06/08/2017 PULMONARY PROGRESS NOTE SUBJECTIVE: She has been noted comfortable at this time receiving hemodialysis today. The chest congestion and cough continued to improve progressively. There were symptoms of chest pain described. OBJECTIVE: VITAL SIGNS: For the patient which were recorded shows normal temperature, respiratory rate of 18, heart rate 81, blood pressure 106/72. Pulse oxygen saturation was noted on 2 liters nasal cannula 100% saturation. HEENT: No acute change. NECK: Supple. CARDIOVASCULAR: S1, S2 audible. LUNGS: The patient was noted without any wheezing or crackles. ABDOMEN: Soft, obese, nontender. LABORATORY DATA: CBC, mild anemia, otherwise normal. Renal function panel: BUN 104, creatinine 7.68. Potassium 6.2. IMPRESSION: The patient with resolving acute exacerbation of chronic obstructive pulmonary disease, acute tracheobronchitis, status post bronchoscopy, small area of atelectasis associated pleural fluid in the left lower lobe. Moderate obesity, end-stage renal failure on hemodialysis. PLAN OF TREATMENT: No changes in the plan of management at this time will be recommended. Continuation of current plan of care for the patient as previously. Continue bronchodilator. Hyperkalemia should improve after hemodialysis. The BMP was done for the patient prior to the dialysis. NELSON TREJO MD CM:PNTRANS [phone] NELSON CHEUNG MD 06/09/17 0303 interface
--- NOTE | ~2017-05-31 | PR ---
[place], [place] PROGRESS NOTE NAME: YOSSI MULLINS UNIT #: [id number] ROOM: 402 DOCTOR: MAYA CHEUNG MD,NELSON BIRTHDATE: [birth year] DOS: 06/05/2017 SUBJECTIVE. She has been noted comfortable at this time, receiving her usual hemodialysis today. The bronchoscopy completed yesterday, which resulted in reduction of the respiratory complaints of cough. However, the resolution was not noted complete, but improving. Denies symptoms of chest pain. There were no symptoms of headache. The patient was noted small amount of hemoptysis, blood-tinged secretions after bronchoscopy, which is not an uncommon finding. She has not been noted edema or pain of the lower extremities. OBJECTIVE: VITAL SIGNS: For the patient which has been recorded showed normal temperature, respiratory rate 20, heart rate 80, blood pressure 124/57 to 121/31 this morning noted. The pulse oxygen saturation on nasal cannula 3 liters 99-100% saturation. HEENT: Moderate obesity. Head was atraumatic. NECK: Supple, short and obese. CARDIOVASCULAR: S1, S2 audible. LUNGS: The patient noted crackles in the lungs, scattered with expiratory wheezing. ABDOMEN: Noted moderately obese. Bowel sounds present. EXTREMITIES: The patient was noted without any acute edema. SKIN: Noted with chronic scattered area of bruising secondary to medications use. CENTRAL NERVOUS SYSTEM: Nonfocal. MUSCULOSKELETAL: No gross deformities. LABORATORY DATA: Review of the Gram stain of the bronchial washing of yesterday, few white blood cells, epithelial cells, rare gram-positive cocci in pairs. The culture result came noted normal arnav, final results pending. CBC this morning, hemoglobin 9.3, hematocrit 30.5, platelet count normal, WBC count normal. Blood culture from the 15th of this month finalized and no bacterial growth. BMP prior to dialysis, BUN 63, creatinine 6.30 with glucose 183. Potassium 5.7, sodium 135 recorded. The fungal stain was noted, no fungal elements with pending culture results. Acid fast bacillus smear was pending. IMPRESSION: 1. The patient who has been currently noted with an acute exacerbation of chronic obstructive pulmonary disease. 2. Status post bronchoscopy, removal of the mucus impaction. 3. End-stage renal failure, on hemodialysis. 4. Fluid overload with a small left pleural effusion as well. Overall debility secondary to that. PLAN OF MANAGEMENT: Chest x-ray was ordered, PA lateral view today after completion of hemodialysis to assess the pleural fluid. No intervention was previously planned because there is small amount of pleural fluid. However, the new chest x-ray will be assessed for that. If any intervention necessary will be done accordingly. In the meantime, continue hemodialysis, maximum fluid removal as well as tolerated. Other supportive therapy, plan of management. [place], [place] PROGRESS NOTE NAME: YOSSI MULLINS UNIT #: [id number] ROOM: [facility] DOCTOR: MAYA CHENUG MD,NELSON BIRTHDATE: [birth year] Continue bronchodilators, oxygen supplementation. No changes in the antibiotics and others will be needed. NELSON TREJO MD CM:KALI [id number] NELSON CHEUNG MD 06/05/17 2374 interface
--- NOTE | ~2017-05-31 | PR ---
[place], [place] PROGRESS NOTE NAME: YOSSI MULLINS UNIT #: [id number] ROOM: 402 DOCTOR: KADEN UFNK MD BIRTHDATE: [birth year] DOS: 06/09/2017 SUBJECTIVE: The patient was seen at her bedside today, 06/09/2017, for followup of dyspnea. She was lying almost flat in bed, but states that she feels tired from going down for an x-ray. She denied any chest pain or palpitations. PHYSICAL EXAMINATION: VITAL SIGNS: Her pulse is 70 and regular, blood pressure is 127/50. She is afebrile and weighs 89.5 kilograms. NECK: Supple. I saw no jugular distention. Carotids were full. LUNGS: Respirations were slightly labored at rest. She does have crackles at the right base. There is no presacral edema or chest wall tenderness present. HEART: Has a regular rhythm. There were no significant murmurs or gallops present. ABDOMEN: Obese. EXTREMITIES: Showed no edema. Chest x-ray shows cardiomegaly with a small left pleural effusion. Echocardiography done, 06/01/2017, showed normal left ventricular size, wall motion and systolic function with ejection fraction 70%. There is Doppler evidence for stage 2 diastolic relaxation abnormalities. Right ventricular size and function are normal. The left atrium was moderately dilated. There was trace aortic insufficiency and mild aortic stenosis. There was mild mitral insufficiency, but no stenosis. Right ventricular systolic pressures appeared normal. There was a prominent pericardial fat pad, but no evidence for tamponade. IMPRESSION: 1. Dyspnea, which probably is multifactorial. 2. End-stage renal disease. 3. Chronic obstructive pulmonary disease with exacerbation. 4. Acute on chronic diastolic heart failure. PLAN: The patient does not appear to be dramatically fluid overloaded at this time. The possibility of high output failure due to the patient's AV fistula has been raised. This is difficult to prove but usually is associated with tachycardia, which the patient is not demonstrating. No other cardiac workup is planned or recommended at this time. We will continue to follow her with her other physicians. I thank Dr. Alba for asking our advice regarding her care. [place], [place] PROGRESS NOTE NAME: YOSSI MULLINS UNIT #: [id number] ROOM: 402 DOCTOR: KADEN FUNK MD BIRTHDATE: [birth year] KADEN FUNK MD CM:PNTRANS [phone] KADEN FUNK MD 06/09/17 2134 interface
--- NOTE | ~2017-05-31 | PR ---
[place], [place] PROGRESS NOTE NAME: [facility]INS [id number] UNIT #: [id number] ROOM: 402 DOCTOR: JON HIGUERA MD BIRTHDATE: [birth year] DOS: SUBJECTIVE: The patient has been admitted to the hospital with end-stage renal failure with severe anemia due to chronic renal failure and multiple other causes. [id number] respiratory distress with COPD, congestive heart failure, atrial fibrillation with history of GI bleeding when she was on anticoagulant, obesity dementia, hyponatremia. The patient is getting hemodialysis at present and she is feeling fairly good, conscious, and alert and not in any distress. She is still having some cough, but no difficulty in breathing. She denies any chest pain. The patient had bronchoscopy done by Dr. Pleitez and had removal of moderate amount of mucus impaction of major airways and her basic metabolic profile today showed glucose of 183, BUN 863, creatinine 6.3. GFR is 6. She is going for hemodialysis at present. Gram stain shows normal arnav. CBC showed white count of 5400, hemoglobin 9.3, hematocrit 30.5, negative hypochromic anemia due to end-stage renal failure. Blood culture did not grow any bacteria. OBJECTIVE: VITAL SIGNS: Blood pressure 124/57, pulse 80, respirations 20, temperature 98.1. JON HIGUERA MD CM:PNTRANS [phone] JON HIGUERA MD 06/06/17 0149 interface
--- NOTE | ~2017-05-31 | PR ---
[place], [place] PROGRESS NOTE NAME: YOSSI MULLINS UNIT #: [id number] ROOM: 402 DOCTOR: MAYA CHEUNG MD,NELSON BIRTHDATE: [birth year] DOS: 06/07/2017 SUBJECTIVE: The patient was doing very well at this time and did show reduction and improvement in the respiratory complaints at this time gradually. Denies symptoms of chest pain or abdominal pain. OBJECTIVE: VITAL SIGNS: Normal temperature, respiratory rate 20, heart rate 72, blood pressure 124/50. The pulse oxygen saturation for the patient on 2 liters is 100% saturation. HEENT: Examination shows no acute change. NECK: Supple. CARDIOVASCULAR: S1, S2 audible. LUNGS: Without any wheezing or crackles. ABDOMEN: Soft, nontender. Bowel sounds present. EXTREMITIES: Without any acute edema. IMPRESSION: 1. The patient who has been noted with the resolving area of atelectasis infiltration in the lower lung with acute tracheobronchitis. 2. End-stage renal failure, hemodialysis regularly. PLAN OF TREATMENT: No changes in plan of therapy at this time. Continue the patient's current plan of care as in progress. Usual care. Discharge planning per primary care attending. NELSON TREJO MD CM:PNTRANS [phone] NELSON CHEUNG MD 06/08/17 014 interface
--- NOTE | ~2017-05-31 | CON ---
[place], [place] REPORT OF CONSULTATION NAME: YOSSI MULLINS UNIT #: [id number] ROOM: 402 DOCTOR: NELSON JENKINS MD BIRTHDATE: [birth year] DOS: 06/03/2017 PULMONARY CONSULTATION, EVALUATION AND MANAGEMENT CONSULTATION REQUESTED BY: Hospitalist Service. REASON FOR CONSULTATION: Assessment of nonresolving respiratory symptom with persistent cough and wheezing. The patient admitted to the hospital on 05/31/2017. HISTORY OF PRESENT ILLNESS: This is a 76-year-old white female known to me with past history of COPD and bronchial asthma. The patient has been hospitalized on 05/31/2017 as the patient reported symptoms of having increased shortness of breath. The patient was also described possibility of fluid overload as well. The patient was noted with symptoms of cough and wheezing that has been noted significant worsening, cough has been noted intermittently, [id number] with inability to expectorate any sputum. She has not been reported any symptoms of hemoptysis. She had not been noted symptoms of acute chest pain. Shortness of breath essentially remains persistent and unchanged since hospitalization. She has been currently getting oxygen supplementation with the nasal cannula at this time as well. REVIEW OF SYSTEMS: CONSTITUTIONAL: She does have symptoms of fatigue and tiredness, no symptoms of fever or chills. EYES: Denies any burning, redness, or tenderness. EARS, NOSE, THROAT SYMPTOMS: Denies sore throat, hoarseness, otalgia, postnasal drainage or epistaxis. GASTROINTESTINAL SYMPTOMS: Denies dysphagia, nausea, vomiting, diarrhea, abdominal pain, hematemesis, melena, or hematochezia. SKIN: The patient with intermittent bruising of the skin was reported, medication related. There were no ulcers or rashes. GENITOURINARY SYMPTOMS: End-stage renal failure was noted. The patient with hemodialysis received on Wednesday, and Saturdays. CENTRAL NERVOUS SYSTEM: Denies any gross focal deficit, tingling sensation of the extremities and no other symptoms. Remaining systems were reviewed, they were noted all negative. PAST MEDICAL HISTORY: 1. The patient was known with history of end-stage renal failure on hemodialysis 3 times a week. 2. History of atrial fibrillation, on anticoagulation. 3. L1 compression fracture. 4. Severe COPD/emphysema. 5. Uncomplicated moderate persistent bronchial asthma and acute congestive heart failure for this patient with diastolic dysfunction. 6. Gastroesophageal reflux. 7. Chronic obesity. 8. Chronic hypoxic respiratory failure. [place], [place] REPORT OF CONSULTATION NAME: YOSSI MULLINS UNIT #: [id number] ROOM: [facility] DOCTOR: MAYA CHEUNG MD,NELSON BIRTHDATE: [birth year] PAST SURGICAL HISTORY: 1. Complete hysterectomy. 2. Appendectomy. 3. Cardiac catheterization. 4. Cholecystectomy and dialysis catheter insertion. 5. Left eye surgery. 6. Therapeutic bronchoscopy that was done for the patient in September 2016 admission. SOCIAL HISTORY: She has been noted history of tobacco use from the age of [age] years old, 2 packs of cigarettes per day. The patient stated no tobacco use at this time. There were no history of alcohol use, illicit drug use or occupation related pulmonary exposure. FAMILY HISTORY: Both parents , history about the dad was unknown. Mother at the age of 7676 years old, complication related to diabetes mellitus. HOME MEDICATIONS: For the patient were listed as use of: 1. Norvasc 10 mg daily. 2. Aspirin 81 mg p.o. daily. 3. PhosLo t.i.d. with the meals. 4. Vitamin D 2000 international units daily. 5. Sensipar 30 mg p.o. daily. 6. Aricept 5 mg daily. 7. Vicodin b.i.d. 8. Levemir insulin 25 units b.i.d. 9. Metoprolol tartrate 25 mg b.i.d. 10. Protonix 40 mg daily. 11. Pravastatin 40 mg daily. DRUG ALLERGIES: The patient noted no known drug allergies. PHYSICAL EXAMINATION: GENERAL: This is a 76-year-old white female who has been currently noted using oxygen supplementation, sitting on the bed with a nonproductive cough. Height of the patient recorded by the nursing staff at the time of the current admission with a height of 5 feet, weight of 200 pounds. VITAL SIGNS: For the patient which has been recorded showed the temperature recorded normal since admission, respiratory rate between 18 and 24, heart rate 79-83, blood pressure 125/55-130/64. Intake for the patient recorded as 1080 mL, output was not recorded. Pulse ox saturation on 2 liters nasal cannula was 95% saturation. HEENT: Moderate obesity. Head was atraumatic. Eyes nonicterus. Oral mucosa moist. Decreased posterior pharyngeal space with high tongue base and crowding of the soft tissue structures. CARDIOVASCULAR SYSTEM: S1, S2 audible. The patient without any added sounds. LUNGS: The patient noted diffuse expiratory wheezing in the lungs noted bilaterally. Occasional scattered crackles. Shows scattered area of bruising of the lungs, most likely related to home medication use and anticoagulants. ABDOMEN: Noted soft, nontender for this patient and moderate obesity. Bowel [place], [place] REPORT OF CONSULTATION NAME: YOSSI MULLINS UNIT #: [id number] ROOM: 402 DOCTOR: MAYA CHEUNG MD,NELSON BIRTHDATE: [birth year] sounds present. EXTREMITIES: The patient was noted without edema, clubbing, cyanosis. VISIBLE SKIN: No lesions or rashes. MUSCULOSKELETAL SYMPTOM: No deformities. LABORATORY DATA: The blood culture of the patient on of this month showed no bacterial growth in both sets for this patient, aerobic, anaerobic bottles. CBC of the patient that was done yesterday, hemoglobin 9.9, hematocrit 31.3, platelet count were normal, 99% segmented neutrophils. The renal function panel of the patient that was done yesterday showed BUN 39, creatinine 6.39, glucose 102, CO2 33. The CBC of the patient this morning, normal WBC count, remaining CBC was essentially identical. The renal function panel today, BUN 69, creatinine 8.12. The chest x-ray of the patient that was done, 2-view was reviewed of yesterday does not show any acute infiltration. Lactic acid on admission noted 3.1, followup lactic acid was noted between 2.5-3.3. Chest x-ray of the patient that was done 1 view on admission was essentially noted with pulmonary venous congestion marking was noted with a small pleural fluid cannot be excluded. A followup chest x-ray, 2-view, which was done for the patient shows a small pleural fluid noted in left lower lobe with the area of ____ done for the patient on 05/31/2017 noted mildly elevated ____ 0.171 to 0.20. IMPRESSION: 1. The patient who had been currently admitted to the hospital noted with combination of acute exacerbation of chronic obstructive pulmonary disease with possible some fluid overload. Small left-sided infiltration with possible pneumonia that cannot be completely excluded. 2. Persistent cough for the patient nonresolving on current medical management at this time. 3. The patient with mild steroid-induced hyperglycemia related to use of the corticosteroids with history of diabetes mellitus as well. PLAN OF TREATMENT: Continuation of the bronchodilators, oxygen supplementation and usual home medication. Continue current antibiotic with doxycycline, coverage for Gram-positive organism including MRSA and the Rocephin for the other Gram-positive coverage as well as usual Gram-negative community-acquired infection. The patient was assessed for the bronchoscopy that would be helpful to rather extract the mucus impaction from the airways because of persistent severe nonproductive cough. Bronchodilator to be continued. Continue hemodialysis as well. Other supportive therapy, plan and management to be continued as previously. Usual care. Supportive plan of therapy care and other medical management. Holding off the anticoagulants for the patient temporarily for bronchoscopy would be done. At this time, the patient was not noted in any anticoagulants. Dose of Solu-Medrol of the patient remains the same as 80 mg b.i.d., which it will be reduced for reduction of the respiratory symptoms and cough. Other supportive therapy, plan of management as well. Usual care. Thanks for allowing me to participate in the care of this patient. [place], [place] REPORT OF CONSULTATION NAME: YOSSI MULLINS UNIT #: [id number] ROOM: [facility] DOCTOR: NELSON JENKINS MD BIRTHDATE: [birth year] NELSON TREJO MD CM:CONSTR:REPORT OF CONSULTATION 1647 06/04/17 0359 interface
--- NOTE | ~2017-05-31 | EKG ---
[place], [place] ELECTROCARDIOGRAM REPORT NAME: YOSSI MULLINS UNIT #: [id number] ROOM: 402 DOCTOR: MAYA CHEUNG MD,NELSON BIRTHDATE: [birth year] DOS: 06/03/2017 The electrocardiogram was done at 06/03/2017 at 5:09 p.m. Normal sinus rhythm was noted with diffuse ST-T changes, which were noted nonspecific. NELSON TREJO MD CM:EKGRPT:ELECTROCARDIOGRAM REPORT [id number] NELSON CHEUNG MD
--- NOTE | ~2017-05-31 | PROC NOTE ---
[place], [place] PROCEDURE NOTE NAME: YOSSI MULLINS UNIT #: [id number] ROOM: 402 DOCTOR: MAYA CHEUNG MD,NELSON BIRTHDATE: [birth year] DOS: 06/04/2017 PREOPERATIVE DIAGNOSES: Persistent severe coughing and wheezing, acute exacerbation of chronic obstructive pulmonary disease. POSTOPERATIVE DIAGNOSES: Removal of moderate amount of mucus impaction of major airways to auscultation bilaterally. FINDINGS: Acute tracheobronchitis. COMPLICATIONS: None. BLOOD LOSS: None. PROCEDURE DESCRIPTION: Informed consent obtained. The patient was brought to the outpatient in the supine position. Airway introduced in the mouth. Bronchoscope was advanced to the airway into laryngeal area. Epiglottis and vocal cords were seen. Vocal were moving symmetrically with movements. Bronchoscope advanced to the vocal cord and tracheal lumen that shows gwqir-hq-nfuffixs amount of thick mucus secretion with purulent secretion mixture suctioned out to the ____ level. Right upper, right middle, right lobe, left upper, lingular lower bronchi all examined. Moderate mucus impaction with purulent secretion mixture was noted suctioned out with the help of normal saline wash without difficulty. Procedure was tolerated by by the patient without any difficulty. Postoperative finding will be discussed with the patient when the patient recovers, the effects of acute sedation. No change in treatment, otherwise will be needed at this time. NELSON TREJO MD CM:PROCNOTE:PROCEDURE NOTE [id number] NELSON CHEUNG MD
--- NOTE | ~2017-05-31 | PR ---
[place], [place] PROGRESS NOTE NAME: YOSSI MULLINS UNIT #: [id number] ROOM: [facility] DOCTOR: MAYA CHEUNG MD,NELSON BIRTHDATE: [birth year] DOS: 06/04/2017 SUBJECTIVE: The patient was independently seen and examined with [id number]-[id number] encounter. History was confirmed. Physical examination performed. All the labs were reviewed. Assessment and management of the patient today's notes were personally completed. The note done by the biomedical equipment support specialist was approved. The patient underwent hemodialysis yesterday successfully without difficulty. Still noted symptoms of nonproductive cough with ____ chest congestion. She is n.p.o. past midnight for bronchoscopy planned for today. The patient denies symptoms of chest pain, abdominal pain, edema or pain of the lower extremities at this time. Denies symptoms of headache, nausea, vomiting. OBJECTIVE: VITAL SIGNS: Reviewed noted essentially normal temperature, respiratory rate of 18, heart rate 84, blood pressure 111/64. Pulse oxygen saturation on 2 liter nasal cannula was 95% saturation on 4 liters was 98% saturation as well. CARDIOVASCULAR: S1, S2 audible. LUNGS: Moderate decreased breath sound, diffuse expiratory wheezing without changes from yesterday. There were no crackles. ABDOMEN: Soft with chronic obesity. Bowel sounds present. EXTREMITIES: Chronic obesity without any edema. VISIBLE SKIN: No lesions or rashes. MUSCULOSKELETAL: No deformities. CENTRAL NERVOUS SYSTEM: Intact. LABORATORY DATA: Renal function panel today: BUN 35, creatinine 4.46, glucose 118, potassium 5.3, albumin of 2.8. IMPRESSION: 1. The patient with ongoing acute exacerbation of chronic obstructive pulmonary disease, acute tracheobronchitis with suspected mucous impaction of major airways. 2. Chronic obesity. 3. End-stage renal failure, on regular hemodialysis. 4. Steroid-induced hyperglycemia as well. 5. Fluid overload with a small left pleural effusion was also suspected. PLAN OF MANAGEMENT: Proceed with bronchoscopy as planned. Any changes in the treatment if necessary will be done after bronchoscopy. Continue current dose of corticosteroids, bronchodilators, antibiotics, and other plan of care. Usual treatment, other therapies. The patient will continue as ordered. [place], [place] PROGRESS NOTE NAME: YOSSI MULLINS UNIT #: [id number] ROOM: 402 DOCTOR: NELSON JENKINS MD BIRTHDATE: [birth year] NELSON TREJO MD CM:PNTRANS [id number] NELSON CHEUNG MD 06/04/17 2317 interface
--- NOTE | ~2017-05-31 | PR ---
[place], [place] PROGRESS NOTE NAME: YOSSI MULLINS UNIT #: [id number] ROOM: 402 DOCTOR: ESTRELLA DAVENPORT DO BIRTHDATE: [birth year] DOS: 06/09/2017 SUBJECTIVE: The patient is seen and examined at bedside. The patient is sitting upright in bed in mild distress. The patient reports that she continues to be short of breath and has a mild dry cough. The patient does not feel like her breathing has improved over the last several days. No new complaints at this time. OBJECTIVE: VITAL SIGNS: Temperature 97.6, pulse is 66, respirations 20, blood pressure 122/47, pulse ox is 98% on 1 liter nasal cannula. GENERAL APPEARANCE: Alert, awake and oriented x 3, in moderate distress. HEENT: Eyes are clear. Nares are patent. Mucous membranes are moist. NECK: Supple, nontender. CARDIOVASCULAR: Regular rate and rhythm. No murmurs, gallops or rubs. PULMONARY: Clear to auscultation. No rales, wheezes or rhonchi. ABDOMEN: Soft, nontender with positive bowel sounds. EXTREMITIES: Clear of edema, erythema, clubbing and cyanosis. NEUROLOGIC: Negative for focal deficits. LABORATORY DATA: No new labs were drawn. Micro: Bronch and blood cultures remain negative. Chest CT from yesterday shows infiltrate and/or atelectasis of the left posterior basilar segment of the left lung with a small pleural effusion, small pericardial effusion as well with coronary artery calcifications. IMPRESSION: 1. Resolving acute exacerbation of chronic obstructive pulmonary disease, acute tracheobronchitis. The patient had a bronchoscopy and her physical exam shows improvement. 2. End-stage renal failure, on hemodialysis. PLAN OF CARE: No changes in the current plan and management of this patient. The patient continues to improve gradually, continue with dialysis. The patient would likely benefit from rehabilitation in a SNF. We will discuss with the primary team. No change in current plan at this time. ESTRELLA DAVENPORT DO [place], [place] PROGRESS NOTE NAME: YOSSI MULLINS UNIT #: [id number] ROOM: 402 DOCTOR: ESTRELLA DAVENPORT DO BIRTHDATE: [birth year] NELSON TREJO MD CM:KALI [id number] ESTRELLA DAVENPORT DO 06/09/17 1357 interface
--- NOTE | ~2017-05-31 | PR ---
[place], [place] PROGRESS NOTE [id number] UNIT #: [id number] ROOM: 402 DOCTOR: MAYA CHEUNG MDNELSON BIRTHDATE: [birth year] DOS: 06/09/2017 The patient is independently seen and examined in atdz-un-cmtt encounter. History was confirmed. Physical examination was performed. Assessment and management of the patient pulmonary related was personally completed. The note done by the medical science liaison was approved as well. SUBJECTIVE: The patient has been noted comfortable at this time without any distress, seen and examined today. She does complain of shortness of breath. Denies symptoms of coughing, chest pain, or sputum expectoration. Denies abdominal pain. She has a CT scan of the chest completed yesterday. Cardiology consultation was ordered for the patient possibly due to fluid overload, congestive heart failure. OBJECTIVE: VITAL SIGNS: For the patient, which was done today shows a normal temperature, respiratory rate 22, heart rate 70, blood pressure 122/50. Pulse oxygen saturation of the patient on room air was 98% saturation. HEENT: Without any acute changes. LUNGS: Noted essentially clear of any wheezing or crackles at this time. ABDOMEN: Noted with moderate obesity, bowel sounds present without any tenderness. EXTREMITIES: Without edema, clubbing, or cyanosis. SKIN: Chronic changes with scattered bruising of skin that is a chronic finding, and has previously. CENTRAL NERVOUS SYSTEM: The patient appeared to be intact. IMAGING STUDIES AND LABORATORY DATA: CT scan of the chest of the patient that was done yesterday was personally reviewed from the CT scan images. CT scan of the chest that was done without contrast, personally reviewed, shows very small left pleural fluid with area of atelectasis that was visible on the chest x-ray as well and correlated the same. Remaining lungs were noted clear of any abnormal pulmonary infiltration, interstitial edema, or other abnormalities. The patient has arterial blood gases done as well, pH of 7.46, pCO2 of 37, pO2 of 92 with 2 liters nasal cannula. IMPRESSION: 1. The patient who has been noted significantly short of breath with clear lungs with a small pleural fluid, which has been noted previously with her pneumonia, cannot be explained well for this patient with current pulmonary assessment such as sepsis. The possibility remains either pulmonary embolism to be excluded and/or anxiety disorder as well. 2. Resolving acute exacerbation of chronic obstructive pulmonary disease as well. 3. End-stage renal failure, on hemodialysis. The patient did receive her regular hemodialysis yesterday. RECOMMENDATIONS: Reorder the arterial blood gases for this patient again today. Chest x-ray, PA and lateral view if shows the same finding of previously, either a V/Q scan or CTA of the chest to be done for the patient after [place], [place] PROGRESS NOTE NAME: YOSSI MULLINS UNIT #: [id number] ROOM: [facility] DOCTOR: MAYA CHEUNG MD,NELSON BIRTHDATE: [birth year] clarification from Nephrology services, so she can receive hemodialysis sooner than her usual dose because of the contrast used. Further change in treatment will be ordered for the patient based on the availability of the current testing, which has been ordered. NELSON TREJO MD CM:PNTRANS [id number] NELSON CHEUNG MD 06/10/179 interface
--- NOTE | ~2017-05-31 | PR ---
[place], [place] PROGRESS NOTE NAME: YOSSI MULLINS UNIT #: [id number] ROOM: 402 DOCTOR: JON HIGUERA MD BIRTHDATE: [birth year] DOS: SUBJECTIVE: Yossi Mullins who has been admitted to the hospital with acute tracheobronchitis with COPD and emphysema with increased problem of COPD and renal failure end-stage, on hemodialysis, progressively getting better. She denies any chest pain. She still has some shortness of breath. No nausea, no vomiting. Her Gram stain shows normal arnav. CBC showed white count 4300, hemoglobin 9.1, hematocrit 29.2. Basic metabolic profile showed glucose 190, BUN 50, creatinine 5.10, GFR 8 due to her renal failure. OBJECTIVE: VITAL SIGNS: Her blood pressure 120/53, pulse 74, respirations 18, temperature 98.5. CHEST: Having increased expiration, occasional wheezing. HEART: Regular. ABDOMEN: Soft. JON HIGUERA MD CM:PNTRANS [id number] JON HIGUERA MD 06/07/17 0035 interface
--- NOTE | ~2017-05-31 | PR ---
[place], [place] PROGRESS NOTE NAME: YOSSI MULLINS UNIT #: [id number] ROOM: 402 DOCTOR: ESTRELLA DAVENPORT DO BIRTHDATE: [birth year] DOS: 06/10/2017 SUBJECTIVE: The patient seen and examined while getting dialysis. The patient reports that she continues to be short of breath; however, she has no new complaints at this time. The patient complains of cough, wheezing and general shortness of breath. This is likely the patient's baseline. The patient denies any pain; however, she does feel that she feels generally unwell and has some mild fatigue. OBJECTIVE: VITAL SIGNS: Temperature 97.4, pulse is 67, respirations 18, blood pressure 111/48, pulse ox is 100% on 2 liters nasal cannula. GENERAL APPEARANCE: The patient is alert, awake and oriented times 3, in moderate distress. HEENT: Eyes are clear. Nares are patent. Mucous membranes are moist. NECK: Supple, nontender. CARDIOVASCULAR: Regular rate and rhythm, no murmurs, gallops or rubs. PULMONARY: Mild expiratory wheezing and diminished breath sounds, rhonchi or rales were appreciated. ABDOMEN: Soft, nontender with positive bowel sounds. EXTREMITIES: Mild edema 1+ in upper and lower extremities bilaterally. NEUROLOGIC: Negative for focal deficits LABORATORY DATA: Blood cultures and bronch cultures remain negative. CTA yesterday evening was negative for any central pulmonary embolism, difficult study due to patient's movement, pleural parenchymal changes seen similar to prior studies. No acute process was appreciated. Lower extremity ultrasound was negative for DVT bilaterally. Chest x-ray showed small left pleural effusion with cardiomegaly. IMPRESSION: 1. Dyspnea, likely secondary to anxiety and chronic respiratory failure. Lungs are grossly clear to auscultation with mild pleural fluid. 2. Resolving acute exacerbation of chronic obstructive pulmonary disease. 3. End-stage renal disease on hemodialysis. PLAN: Workup for a clot was negative. We will continue with current bronchodilators and respiratory therapy as ordered. No acute change or plan at this time. The patient likely suffers from severe anxiety contributing to her shortness of breath and worsening her chronic lung disease. We will continue to follow the patient. No change in respiratory therapy at this time. ESTRELLA DAVENPORT DO [place], [place] PROGRESS NOTE NAME: SUSANNAYOSSI Sriram UNIT #: [id number] ROOM: [facility] DOCTOR: ESTRELLA DAVENPORT DO BIRTHDATE: [birth year] NELSON TREJO MD CM:KALI [id number] ESTRELLA DAVENPORT DO 06/10/17 1130 interface
--- NOTE | ~2017-05-31 | PR ---
[place], [place] PROGRESS NOTE NAME: YOSSI MULLINS UNIT #: [id number] ROOM: 402 DOCTOR: ETHELESTRELLA CID DO BIRTHDATE: [birth year] DOS: 06/04/2017 SUBJECTIVE: The patient is seen and examined before bronchoscopy. In the preop area, the patient reports that she continues to have shortness of breath and cough. No new complaints at this time. OBJECTIVE: VITAL SIGNS: Temperature 98.6, pulse was 64, respirations 13, blood pressure 115/43, pulse ox is 100% on 2 liters nasal cannula. LABS: Chemistries: Sodium 138, potassium 5.3, chloride 101, carbon dioxide 29, BUN is 35, creatinine is 4.46, glucose is 118. Calcium 8.0, phosphorus 3.3, albumin 2.8. Serologies for acid fast staining are pending. Blood cultures and bronchial washings remain negative and are pending final read. PHYSICAL EXAMINATION: GENERAL APPEARANCE: The patient is alert, awake and oriented x 3, in no acute distress. HEENT: Eyes are clear. Nares are patent. Mucous membranes are moist. NECK: Supple, nontender. CARDIOVASCULAR: Regular rate and rhythm. No murmurs, gallops or rubs. PULMONARY: Diminished breath sounds. Positive expiratory wheezing without rales or rhonchi. ABDOMEN: Soft, nontender with positive bowel sounds. EXTREMITIES: Negative for edema, erythema, clubbing or cyanosis. IMPRESSION: 1. Chronic obstructive pulmonary disease with acute exacerbation. 2. Acute hypoxia with respiratory failure. TREATMENT PLAN: Continue with steroids, doxycycline, Mucinex. The patient had a bronchoscopy performed today. We will monitor the patient for improvement of symptoms. Anticipate dramatic improvement tomorrow after removing extensive mucus plugs from the bronchial tree. We will continue to follow. ESTRELLA DAVENPORT DO [place], [place] PROGRESS NOTE NAME: YOSSI MULLINS UNIT #: [id number] ROOM: 402 DOCTOR: ESTRELLA DAVENPORT DO BIRTHDATE: [birth year] NELSON TREJO MD CM:PNDIEGO [id number] ESTRELLA DAVENPORT DO 06/04/17 1101 interface
--- NOTE | ~2017-05-31 | EKG ---
[place], [place] ELECTROCARDIOGRAM REPORT NAME: YOSSI MULLINS UNIT #: [id number] ROOM: 402 DOCTOR: MAYA CHEUNG MD,NELSON BIRTHDATE: [birth year] DOS: 06/03/2017 Normal sinus rhythm were noted with heart rate of 75 beats per minute with a low voltage EKG and nonspecific ST-T changes. NELSON TREJO MD CM:EKGRPT:ELECTROCARDIOGRAM REPORT [id number] NELSON CHEUNG MD
[2017-05-31 10:19] VITALS: BP 142/62
[2017-05-31 10:59] LABS: BASO % 0.6 % (0.0-1.0); EOS % 0.2 % (1.0-4.0); HEMATOCRIT 30.9 % (37.0-47.0); HEMOGLOBIN 9.5 g/dl (12.0-16.0); LYMPH # 0.4 10*3/uL (1.3-4.4); LYMPH % 6.9 % (27.0-41.0); MEAN CELL VOLUME 104.4 fl (81.0-99.0); MEAN CORPUSCULAR HGB 32.1 pg (27.0-31.0); MEAN CORPUSCULAR HGB CONC 30.7 g/dl (33.0-37.0); MEAN PLATELET VOLUME 10.8 fl (9.6-12.3); MONO # 0.5 10*3/uL (0.1-1.0); MONO % 9.2 % (3.0-9.0); NEUT # 4.3 10*3/uL (2.3-7.9); NEUT % 82.3 % (47.0-73.0); PLATELET COUNT AUTOMATED 178 10*3/uL (130-400); RED BLOOD COUNT 2.96 10*6/uL (4.10-5.10); RED CELL DISTRI WIDTH 13.4 % (0-14.5); WHITE BLOOD COUNT 5.2 10*3/uL (4.8-10.8)
[2017-05-31 11:00] LABS: ACT PARTIAL THROMBO TIME 29.4 SECONDS (20.8-31.5); INTERNATIONAL NORM RATIO 0.9 (2.0-3.5)
[2017-05-31 11:17] LABS: ALBUMIN 2.8 gm/dl (3.1-4.5); CREATININE 8.88 mg/dL (0.55-1.02); POTASSIUM 4.1 mmol/L (3.5-5.1); TOTAL PROTEIN 6.1 gm/dL (6.4-8.2)
[2017-05-31 11:22] LABS: TROPONIN I 0.255 ng/ml (<0.045)
[2017-05-31 12:54] VITALS: BP 148/78
[2017-05-31 13:20] VITALS: BP 131/59
[2017-05-31 13:24] VITALS: BP 131/59
[2017-05-31 16:00] VITALS: BP 135/50
[2017-05-31 20:00] VITALS: BP 122/50
[2017-06-01] VITALS: BP 120/50
[2017-06-01 07:26] LABS: HEMATOCRIT 28.7 % (37.0-47.0); MEAN CELL VOLUME 103.6 fl (81.0-99.0); MEAN CORPUSCULAR HGB 32.5 pg (27.0-31.0); MEAN CORPUSCULAR HGB CONC 31.4 g/dl (33.0-37.0); MEAN PLATELET VOLUME 11.2 fl (9.6-12.3); PLATELET COUNT AUTOMATED 172 10*3/uL (130-400); RED BLOOD COUNT 2.77 10*6/uL (4.10-5.10); RED CELL DISTRI WIDTH 13.5 % (0-14.5)
[2017-06-01 07:55] LABS: CREATININE 10.3 mg/dL (0.55-1.02); POTASSIUM 4.5 mmol/L (3.5-5.1)
[2017-06-01 08:00] VITALS: BP 109/58
[2017-06-01 08:01] LABS: THYROID STIM HORMONE (HS) 1.33 uIU/ml (0.358-4.75)
[2017-06-01 08:15] LABS: TOTAL CELLS COUNTED 100 #CELLS
[2017-06-01 08:16] LABS: PLATELET SUFFICIENCY NORMAL (NORMAL)
[2017-06-01 12:00] VITALS: BP 115/57
[2017-06-01 17:06] VITALS: BP 110/83
[2017-06-01 20:00] VITALS: BP 116/83
[2017-06-02] VITALS: BP 111/58
[2017-06-02 07:26] LABS: HEMATOCRIT 31.3 % (37.0-47.0); HEMOGLOBIN 9.9 g/dl (12.0-16.0); MEAN CELL VOLUME 103.3 fl (81.0-99.0); MEAN CORPUSCULAR HGB 32.7 pg (27.0-31.0); MEAN CORPUSCULAR HGB CONC 31.6 g/dl (33.0-37.0); PLATELET COUNT AUTOMATED 195 10*3/uL (130-400); RED BLOOD COUNT 3.03 10*6/uL (4.10-5.10); RED CELL DISTRI WIDTH 13.4 % (0-14.5)
[2017-06-02 08:00] VITALS: BP 121/54
[2017-06-02 08:02] LABS: CREATININE 6.39 mg/dL (0.55-1.02); PHOSPHOROUS 4.4 mg/dL (2.5-4.9); POTASSIUM 4.6 mmol/L (3.5-5.1)
[2017-06-02 08:08] LABS: PLATELET SUFFICIENCY NORMAL (NORMAL); POLYCHROMASIA SLIGHT; TOTAL CELLS COUNTED 100 #CELLS
[2017-06-02 12:00] VITALS: BP 113/60
[2017-06-02 16:00] VITALS: BP 123/50
[2017-06-02 20:00] VITALS: BP 117/55
[2017-06-03] VITALS: BP 125/55
[2017-06-03 07:38] LABS: HEMATOCRIT 29.5 % (37.0-47.0); HEMOGLOBIN 9.2 g/dl (12.0-16.0); MEAN CELL VOLUME 103.5 fl (81.0-99.0); MEAN CORPUSCULAR HGB 32.3 pg (27.0-31.0); MEAN CORPUSCULAR HGB CONC 31.2 g/dl (33.0-37.0); MEAN PLATELET VOLUME 11.3 fl (9.6-12.3); PLATELET COUNT AUTOMATED 159 10*3/uL (130-400); RED BLOOD COUNT 2.85 10*6/uL (4.10-5.10); RED CELL DISTRI WIDTH 13.3 % (0-14.5); WHITE BLOOD COUNT 6.9 10*3/uL (4.8-10.8)
[2017-06-03 07:59] LABS: ALBUMIN 2.8 gm/dl (3.1-4.5); CREATININE 8.12 mg/dL (0.55-1.02); PHOSPHOROUS 4.8 mg/dL (2.5-4.9); POTASSIUM 4.8 mmol/L (3.5-5.1)
[2017-06-03 08:00] VITALS: BP 130/64; BP 99/50
[2017-06-03 08:25] LABS: TOTAL CELLS COUNTED 100 #CELLS
[2017-06-03 08:26] LABS: OVALOCYTES FEW; PLATELET SUFFICIENCY NORMAL (NORMAL); VACUOLATION OF NEUTROPHILS SLIGHT
[2017-06-03 17:00] VITALS: BP 113/81
[2017-06-03 20:00] VITALS: BP 132/73
[2017-06-04] VITALS (9 sets, daily range): BP systolic 108–125; BP diastolic 43–67
[2017-06-04 06:50] LABS: CREATININE 4.46 mg/dL (0.55-1.02); PHOSPHOROUS 3.3 mg/dL (2.5-4.9); POTASSIUM 5.3 mmol/L (3.5-5.1)
[2017-06-04 06:51] LABS: ALBUMIN 2.8 gm/dl (3.1-4.5)
[2017-06-05] VITALS: BP 121/31
[2017-06-05 07:30] LABS: HEMATOCRIT 30.5 % (37.0-47.0); HEMOGLOBIN 9.3 g/dl (12.0-16.0); MEAN CELL VOLUME 104.1 fl (81.0-99.0); MEAN CORPUSCULAR HGB 31.7 pg (27.0-31.0); MEAN CORPUSCULAR HGB CONC 30.5 g/dl (33.0-37.0); MEAN PLATELET VOLUME 11.3 fl (9.6-12.3); PLATELET COUNT AUTOMATED 150 10*3/uL (130-400); RED BLOOD COUNT 2.93 10*6/uL (4.10-5.10); RED CELL DISTRI WIDTH 13.2 % (0-14.5); WHITE BLOOD COUNT 5.4 10*3/uL (4.8-10.8)
[2017-06-05 07:51] LABS: POTASSIUM 5.7 mmol/L (3.5-5.1)
[2017-06-05 07:53] LABS: CREATININE 6.3 mg/dL (0.55-1.02)
[2017-06-05 08:00] VITALS: BP 124/57
[2017-06-05 08:04] LABS: PLATELET SUFFICIENCY NORMAL (NORMAL); TOTAL CELLS COUNTED 100 #CELLS
[2017-06-05 16:00] VITALS: BP 103/56
[2017-06-05 16:09] LABS: ACID FAST SMEAR Negative (.); ACID FAST SPEC PROCESSING Concentration (.)
[2017-06-05 20:00] VITALS: BP 131/52
[2017-06-06] VITALS: BP 119/54
[2017-06-06 07:09] LABS: HEMATOCRIT 29.2 % (37.0-47.0); HEMOGLOBIN 9.1 g/dl (12.0-16.0); MEAN CELL VOLUME 103.5 fl (81.0-99.0); MEAN CORPUSCULAR HGB 32.3 pg (27.0-31.0); MEAN CORPUSCULAR HGB CONC 31.2 g/dl (33.0-37.0); PLATELET COUNT AUTOMATED 145 10*3/uL (130-400); RED BLOOD COUNT 2.82 10*6/uL (4.10-5.10); RED CELL DISTRI WIDTH 13.2 % (0-14.5); WHITE BLOOD COUNT 4.3 10*3/uL (4.8-10.8)
[2017-06-06 07:31] LABS: POTASSIUM 5.1 mmol/L (3.5-5.1)
[2017-06-06 07:42] LABS: CREATININE 5.1 mg/dL (0.55-1.02)
[2017-06-06 07:54] LABS: PLATELET SUFFICIENCY NORMAL (NORMAL); TOTAL CELLS COUNTED 100 #CELLS
[2017-06-06 08:00] VITALS: BP 120/53
[2017-06-06 12:00] VITALS: BP 105/68
[2017-06-06 16:00] VITALS: BP 148/48
[2017-06-06 20:00] VITALS: BP 107/86
[2017-06-07] VITALS: BP 139/72
[2017-06-07 07:47] LABS: HEMATOCRIT 29.8 % (37.0-47.0); HEMOGLOBIN 9.3 g/dl (12.0-16.0); MEAN CELL VOLUME 102.1 fl (81.0-99.0); MEAN CORPUSCULAR HGB 31.8 pg (27.0-31.0); MEAN CORPUSCULAR HGB CONC 31.2 g/dl (33.0-37.0); MEAN PLATELET VOLUME 11.1 fl (9.6-12.3); PLATELET COUNT AUTOMATED 162 10*3/uL (130-400); RED BLOOD COUNT 2.92 10*6/uL (4.10-5.10); RED CELL DISTRI WIDTH 13.2 % (0-14.5); WHITE BLOOD COUNT 8.1 10*3/uL (4.8-10.8)
[2017-06-07 08:00] VITALS: BP 124/50
[2017-06-07 08:17] LABS: TOTAL CELLS COUNTED 100 #CELLS
[2017-06-07 08:18] LABS: CREATININE 6.38 mg/dL (0.55-1.02); PLATELET SUFFICIENCY NORMAL (NORMAL); POTASSIUM 5.6 mmol/L (3.5-5.1)
[2017-06-07 12:00] VITALS: BP 130/50
[2017-06-07 16:00] VITALS: BP 133/40
[2017-06-07 20:00] VITALS: BP 156/56
[2017-06-08] VITALS: BP 144/60
[2017-06-08 07:06] LABS: HIV 1+2 AB + HIV1 P24 AG Non Reactive (Non Reactive)
[2017-06-08 08:00] VITALS: BP 106/72
[2017-06-08 08:25] LABS: HEMATOCRIT 29.6 % (37.0-47.0); HEMOGLOBIN 9.3 g/dl (12.0-16.0); MEAN CORPUSCULAR HGB 31.4 pg (27.0-31.0); MEAN CORPUSCULAR HGB CONC 31.4 g/dl (33.0-37.0); MEAN PLATELET VOLUME 11.3 fl (9.6-12.3); PLATELET COUNT AUTOMATED 165 10*3/uL (130-400); RED BLOOD COUNT 2.96 10*6/uL (4.10-5.10); RED CELL DISTRI WIDTH 13.3 % (0-14.5); WHITE BLOOD COUNT 7.6 10*3/uL (4.8-10.8)
[2017-06-08 08:40] LABS: ALBUMIN 3.1 gm/dl (3.1-4.5); CREATININE 7.68 mg/dL (0.55-1.02); PHOSPHOROUS 5.8 mg/dL (2.5-4.9)
[2017-06-08 08:49] LABS: POTASSIUM 6.2 mmol/L (3.5-5.1)
[2017-06-08 08:56] LABS: PLATELET SUFFICIENCY NORMAL (NORMAL); TOTAL CELLS COUNTED 100 #CELLS
[2017-06-08 16:00] VITALS: BP 140/58
[2017-06-08 17:56] LABS: ABG BASE EXCESS 3.2 mmol/L (-2.0-2.0); ABG HCO3 26.8 mmol/l (22-26); ABG O2 SATURATION 97.4 % (95-97); ARTERIAL BLOOD GAS PCO2 37.9 mmHg (35-45); ARTERIAL BLOOD GAS PH 7.462 (7.35-7.45); ARTERIAL BLOOD GAS PO2 92.4 mmHg (80-90)
[2017-06-08 20:15] VITALS: BP 131/54
[2017-06-09] VITALS: BP 120/46
[2017-06-09 08:00] VITALS: BP 122/47
[2017-06-09 12:00] VITALS: BP 127/50; BP 127/70
[2017-06-09 15:12] LABS: ABG BASE EXCESS -0.2 mmol/L (-2.0-2.0); ABG HCO3 23.7 mmol/l (22-26); ABG O2 SATURATION 95.1 % (95-97); ARTERIAL BLOOD GAS PH 7.411 (7.35-7.45); ARTERIAL BLOOD GAS PO2 77.8 mmHg (80-90)
[2017-06-09 16:00] VITALS: BP 112/67; BP 119/51
[2017-06-09 20:00] VITALS: BP 90/57
[2017-06-10] VITALS: BP 111/48
[2017-06-10 12:00] VITALS: BP 110/40
[2017-06-10 16:00] VITALS: BP 106/42
== END 2017-06-10 18:16 | disposition short-term general hospital (02) | DRG 871 ==
LOC: ED 10:10 → EDHOLD 11:30 → 4E 11:30
PROVIDERS: Internal Medicine; Internal Medicine Critical Care Medicine; Internal Medicine Hospice and Palliative Medicine; Internal Medicine Nephrology; Student in an Organized Health Care Education/Training Program
DX: A41.9 Sepsis, unspecified organism (principal); I50.33 Acute on chronic diastolic (congestive) heart failure; J96.21 Acute and chronic respiratory failure with hypoxia; I21.A1 Myocardial infarction type 2; E44.0 Moderate protein-calorie malnutrition; J18.9 Pneumonia, unspecified organism; D68.9 Coagulation defect, unspecified; E11.22 Type 2 diabetes mellitus with diabetic chronic kidney disease; J90 Pleural effusion, not elsewhere classified; T17.490A Other foreign object in trachea causing asphyxiation, initial encounter; N18.6 End stage renal disease; T17.590A Other foreign object in bronchus causing asphyxiation, initial encounter; E87.1 Hypo-osmolality and hyponatremia; J44.1 Chronic obstructive pulmonary disease with (acute) exacerbation; J45.901 Unspecified asthma with (acute) exacerbation; I48.92 Unspecified atrial flutter; J44.0 Chronic obstructive pulmonary disease with (acute) lower respiratory infection; E11.65 Type 2 diabetes mellitus with hyperglycemia; E66.01 Morbid (severe) obesity due to excess calories; E87.8 Other disorders of electrolyte and fluid balance, not elsewhere classified; R65.20 Severe sepsis without septic shock; Z79.4 Long term (current) use of insulin; I51.7 Cardiomegaly; K21.9 Gastro-esophageal reflux disease without esophagitis; L68.0 Hirsutism; I48.91 Unspecified atrial fibrillation; D63.1 Anemia in chronic kidney disease; F03.90 Unspecified dementia, unspecified severity, without behavioral disturbance, psychotic disturbance, mood disturbance, and anxiety; J20.9 Acute bronchitis, unspecified; E55.9 Vitamin D deficiency, unspecified; E87.5 Hyperkalemia; Z99.2 Dependence on renal dialysis; Z79.82 Long term (current) use of aspirin; Z79.899 Other long term (current) drug therapy; Z79.01 Long term (current) use of anticoagulants; Z90.710 Acquired absence of both cervix and uterus; Z90.49 Acquired absence of other specified parts of digestive tract; Z83.3 Family history of diabetes mellitus; Z68.35 Body mass index [BMI] 35.0-35.9, adult; X58.XXXA Exposure to other specified factors, initial encounter; Y93.89 Activity, other specified; Y92.89 Other specified places as the place of occurrence of the external cause; Y99.8 Other external cause status

== ENCOUNTER → 2017-08-06 | Outpatient (CLI) | payer MEDICARE | END | disposition home or self-care (01) | LOC: MRI 12:20 | DX: K76.0 Fatty (change of) liver, not elsewhere classified (principal) ==

== ENCOUNTER → 2017-09-29 | Outpatient (CLI) | payer MEDICARE | END | disposition home or self-care (01) | LOC: MAMMO 13:23 | DX: Z12.31 Encounter for screening mammogram for malignant neoplasm of breast (principal); R09.89 Other specified symptoms and signs involving the circulatory and respiratory systems; I50.9 Heart failure, unspecified; I21.9 Acute myocardial infarction, unspecified; J44.9 Chronic obstructive pulmonary disease, unspecified ==

== ENCOUNTER 2017-10-18 10:19 | Inpatient (IN) | payer MEDICARE ==
[~2017-10-18] VITALS: Ht 152.4 cm; Wt 72.6 kg
--- NOTE | ~2017-10-18 | EKG ---
[place], [place] ELECTROCARDIOGRAM REPORT NAME: YOSSI MULLINS UNIT #: [id number] ROOM: 519 DOCTOR: JING LONDON MD BIRTHDATE: [birth year] DOS: 10/18/2017 TIME: 10:38:31 A 76-year-old female. RATE AND RHYTHM: Atrial fibrillation at 64 beats per minute. ME interval undetermined, QRS duration 84 milliseconds. Corrected QT interval is 550 milliseconds. QRS axis is -39. IMPRESSION: 1. Atrial fibrillation with controlled rate. 2. Prolonged QT interval. JING LONDON MD CM:EKGRPT:ELECTROCARDIOGRAM REPORT [id number] JING LONDON MD
[2017-10-18 10:19] VITALS: BP 115/45
[2017-10-18] MEDS ORDERED: CLONIDINE0.2 MG PO (10:55)
[2017-10-18] MEDS ORDERED: SYMB160 INH (10:55)
[2017-10-18] MEDS ORDERED: NAMENDA-5 PO (10:57)
[2017-10-18 10:58] LABS: BASO # 0.1 10*3/uL (0.0-0.1); BASO % 0.5 % (0.0-1.0); EOS # 0.1 10*3/uL (0.0-0.4); EOS % 1.1 % (1.0-4.0); HEMATOCRIT 30.3 % (37.0-47.0); HEMOGLOBIN 9.2 g/dl (12.0-16.0); LYMPH # 0.7 10*3/uL (1.3-4.4); LYMPH % 7.1 % (27.0-41.0); MEAN CELL VOLUME 105.2 fl (81.0-99.0); MEAN CORPUSCULAR HGB 31.9 pg (27.0-31.0); MEAN CORPUSCULAR HGB CONC 30.4 g/dl (33.0-37.0); MEAN PLATELET VOLUME 11.8 fl (9.6-12.3); MONO # 0.7 10*3/uL (0.1-1.0); MONO % 6.6 % (3.0-9.0); NEUT # 8.3 10*3/uL (2.3-7.9); NEUT % 84.2 % (47.0-73.0); PLATELET COUNT AUTOMATED 166 10*3/uL (130-400); RED BLOOD COUNT 2.88 10*6/uL (4.10-5.10); RED CELL DISTRI WIDTH 15.5 % (0-14.5); WHITE BLOOD COUNT 9.9 10*3/uL (4.8-10.8)
[2017-10-18 11:07] LABS: ACT PARTIAL THROMBO TIME 23.4 SECONDS (20.8-31.5)
[2017-10-18 11:15] LABS: ALBUMIN 3.3 gm/dl (3.1-4.5); CREATININE 12.5 mg/dL (0.55-1.02); POTASSIUM 5.2 mmol/L (3.5-5.1); TOTAL PROTEIN 6.1 gm/dL (6.4-8.2)
[2017-10-18 11:18] LABS: TROPONIN I 0.355 ng/ml (<0.045)
[2017-10-18 11:32] VITALS: BP 114/39
[2017-10-18 12:15] VITALS: BP 113/78
[2017-10-18] MEDS ORDERED: RENVELA800 MG PO (12:40)
[2017-10-18 14:28] LABS: CREATININE 12.7 mg/dL (0.55-1.02); POTASSIUM 5.4 mmol/L (3.5-5.1)
[2017-10-18 16:00] VITALS: BP 112/69
[2017-10-18 21:00] VITALS: BP 98/73
[2017-10-19] VITALS: BP 121/87
[2017-10-19 07:38] LABS: HEMATOCRIT 28.2 % (37.0-47.0); HEMOGLOBIN 8.9 g/dl (12.0-16.0); MEAN CELL VOLUME 103.3 fl (81.0-99.0); MEAN CORPUSCULAR HGB 32.6 pg (27.0-31.0); MEAN CORPUSCULAR HGB CONC 31.6 g/dl (33.0-37.0); MEAN PLATELET VOLUME 11.8 fl (9.6-12.3); PLATELET COUNT AUTOMATED 171 10*3/uL (130-400); RED BLOOD COUNT 2.73 10*6/uL (4.10-5.10); RED CELL DISTRI WIDTH 15.9 % (0-14.5); WHITE BLOOD COUNT 4.7 10*3/uL (4.8-10.8)
[2017-10-19 08:07] LABS: ALBUMIN 3.3 gm/dl (3.1-4.5); CREATININE 9.92 mg/dL (0.55-1.02); POTASSIUM 4.8 mmol/L (3.5-5.1)
[2017-10-19 08:08] LABS: PLATELET SUFFICIENCY NORMAL (NORMAL); POLYCHROMASIA SLIGHT; TOTAL CELLS COUNTED 100 #CELLS
[2017-10-19 08:11] LABS: FREE T4 0.79 ng/dl (0.76-1.46); THYROID STIM HORMONE (HS) 1.84 uIU/ml (0.358-4.75); TOTAL PROTEIN 6.3 gm/dL (6.4-8.2)
[2017-10-19 14:22] VITALS: BP 150/55
[2017-10-19 17:08] VITALS: BP 105/47
[2017-10-19 20:00] VITALS: BP 152/64
[2017-10-20] VITALS: BP 119/85
[2017-10-20 08:00] VITALS: BP 98/47
[2017-10-20 08:00] LABS: HEMATOCRIT 29.2 % (37.0-47.0); HEMOGLOBIN 8.7 g/dl (12.0-16.0); LYMPH # 0.3 10*3/uL (1.3-4.4); LYMPH % 3.8 % (27.0-41.0); MEAN CELL VOLUME 105.4 fl (81.0-99.0); MEAN CORPUSCULAR HGB 31.4 pg (27.0-31.0); MEAN CORPUSCULAR HGB CONC 29.8 g/dl (33.0-37.0); MEAN PLATELET VOLUME 11.6 fl (9.6-12.3); MONO # 0.5 10*3/uL (0.1-1.0); MONO % 6.3 % (3.0-9.0); NEUT # 7.7 10*3/uL (2.3-7.9); NEUT % 89.6 % (47.0-73.0); PLATELET COUNT AUTOMATED 174 10*3/uL (130-400); RED BLOOD COUNT 2.77 10*6/uL (4.10-5.10); RED CELL DISTRI WIDTH 15.7 % (0-14.5); WHITE BLOOD COUNT 8.6 10*3/uL (4.8-10.8)
[2017-10-20 08:29] LABS: CREATININE 6.45 mg/dL (0.55-1.02); POTASSIUM 5.1 mmol/L (3.5-5.1)
[2017-10-20 11:53] VITALS: BP 103/79
== END 2017-10-20 12:45 | disposition home or self-care (01) | DRG 871 ==
LOC: ED 10:19 → EDHOLD 11:26 → 5E 11:26
PROVIDERS: Family Medicine; Internal Medicine Nephrology; Nurse Practitioner Family
PROC: 5A1D70Z Performance of Urinary Filtration, Intermittent, Less than 6 Hours Per Day (ICD-10-PCS; principal; 2017-10-18)
PROC: 5A1D70Z Performance of Urinary Filtration, Intermittent, Less than 6 Hours Per Day (ICD-10-PCS; 2017-10-19)
DX: A41.9 Sepsis, unspecified organism (principal); J96.20 Acute and chronic respiratory failure, unspecified whether with hypoxia or hypercapnia; I50.33 Acute on chronic diastolic (congestive) heart failure; E44.0 Moderate protein-calorie malnutrition; D68.9 Coagulation defect, unspecified; J90 Pleural effusion, not elsewhere classified; N18.6 End stage renal disease; E66.2 Morbid (severe) obesity with alveolar hypoventilation; E11.65 Type 2 diabetes mellitus with hyperglycemia; J44.1 Chronic obstructive pulmonary disease with (acute) exacerbation; E87.1 Hypo-osmolality and hyponatremia; E87.5 Hyperkalemia; L68.0 Hirsutism; D53.9 Nutritional anemia, unspecified; I48.2 Chronic atrial fibrillation; E55.9 Vitamin D deficiency, unspecified; F03.90 Unspecified dementia, unspecified severity, without behavioral disturbance, psychotic disturbance, mood disturbance, and anxiety; K21.9 Gastro-esophageal reflux disease without esophagitis; Z99.2 Dependence on renal dialysis; Z99.81 Dependence on supplemental oxygen; Z79.82 Long term (current) use of aspirin; Z86.73 Personal history of transient ischemic attack (TIA), and cerebral infarction without residual deficits; I25.2 Old myocardial infarction; Z79.01 Long term (current) use of anticoagulants; Z90.710 Acquired absence of both cervix and uterus; Z90.49 Acquired absence of other specified parts of digestive tract; Z83.3 Family history of diabetes mellitus; Z82.49 Family history of ischemic heart disease and other diseases of the circulatory system; Z79.4 Long term (current) use of insulin; Z68.33 Body mass index [BMI] 33.0-33.9, adult

== ENCOUNTER → 2017-11-01 | Outpatient (CLI) | payer MEDICARE ==
[~2017-11-01] MED LIST changes: +NAMENDA-5 PO; +RENVELA800 MG PO; +SYMB160 INH
== END | disposition home or self-care (01) ==
LOC: RAD 10:42
DX: I51.7 Cardiomegaly (principal); J90 Pleural effusion, not elsewhere classified; J43.9 Emphysema, unspecified; I50.22 Chronic systolic (congestive) heart failure

== ENCOUNTER → 2017-11-10 | Outpatient (CLI) | payer MEDICARE ==
[2017-11-10 08:31] LABS: ACT PARTIAL THROMBO TIME 23.4 SECONDS (20.8-31.5); INTERNATIONAL NORM RATIO 0.9 (2.0-3.5)
== END | disposition home or self-care (01) ==
LOC: RAD 02:25 → LAB 02:25 → EDSTATUS 10:00 → US 10:00 → SDC 10:00 → RAD 10:00 → SDC 11:00
PROVIDERS: Internal Medicine
DX: E04.1 Nontoxic single thyroid nodule (principal); E78.5 Hyperlipidemia, unspecified; K21.9 Gastro-esophageal reflux disease without esophagitis; E11.22 Type 2 diabetes mellitus with diabetic chronic kidney disease; E05.90 Thyrotoxicosis, unspecified without thyrotoxic crisis or storm; E11.40 Type 2 diabetes mellitus with diabetic neuropathy, unspecified; I13.2 Hypertensive heart and chronic kidney disease with heart failure and with stage 5 chronic kidney disease, or end stage renal disease; I50.9 Heart failure, unspecified; N18.6 End stage renal disease; J44.9 Chronic obstructive pulmonary disease, unspecified; Z99.2 Dependence on renal dialysis; Z98.51 Tubal ligation status; Z90.49 Acquired absence of other specified parts of digestive tract; Z90.710 Acquired absence of both cervix and uterus; Z79.899 Other long term (current) drug therapy; Z87.891 Personal history of nicotine dependence; Z79.82 Long term (current) use of aspirin; Z98.890 Other specified postprocedural states

== ENCOUNTER 2018-02-26 06:33 | Emergency (ER) | payer MEDICARE ==
[~2018-02-26] VITALS: Ht 152.4 cm; Wt 82.6 kg
--- NOTE | ~2018-02-26 | EKG ---
[place], [place] ELECTROCARDIOGRAM REPORT NAME: YOSSI MULLINS UNIT #: [id number] ROOM: DOCTOR: EPIPHANY DRAFT REPORT BIRTHDATE: [birth year] [facility] Test Date: 2018-02-26 Test Time: 06:49:49 Pat Name: YOSSI MULLINS Department: Room: Gender: F Certified Pharmacist Assistant: MARGARITA : 1940 Requested By: JENAE MURRAY Order Number: [id number] Reading MD: Evan Ferraro MD Measurements Intervals [place] Rate: 83 P: 0 OK: 115 QRS: 131 QRSD: 88 T: 42 QT: 387 QTc: 455 Interpretive Statements Sinus rhythm Borderline short OK interval Right axis deviation Low voltage, extremity and precordial leads Abnormal R-wave progression, late transition Compared to ECG 01/12/2018 14:45:28 Right-axis deviation now present Atrial fibrillation no longer present Myocardial infarct finding no longer present Electronically Signed On 02-28-2018 8:42:01 PDT by Evan Ferraro MD CM:EKGRPT:ELECTROCARDIOGRAM REPORT [id number] JENAE BYERS DRAFT REPORT JENAE MURRAY DO
[~2018-02-26 06:33] MED LIST changes: -ASPIRIN ADULT L81 M2 PO; +ASPIRIN ADULT L81 MG PO; +Ipratropium Brom3 ML INH; +NATURE'S BLEND F1 MG PO; +PULMICORT RESP0.5 M1 INH
[2018-02-26 07:22] VITALS: BP 132/64
[2018-02-26 07:26] LABS: HEMATOCRIT 37.3 % (37.0-47.0); HEMOGLOBIN 11.3 g/dl (12.0-16.0); MEAN CORPUSCULAR HGB 33.3 pg (27.0-31.0); MEAN CORPUSCULAR HGB CONC 30.3 g/dl (33.0-37.0); MEAN PLATELET VOLUME 11.2 fl (9.6-12.3); PLATELET COUNT AUTOMATED 184 10*3/uL (130-400); RED BLOOD COUNT 3.39 10*6/uL (4.10-5.10); RED CELL DISTRI WIDTH 15.4 % (0-14.5); WHITE BLOOD COUNT 9.2 10*3/uL (4.8-10.8)
[2018-02-26 07:35] LABS: ACT PARTIAL THROMBO TIME 23.7 SECONDS (20.8-31.5)
[2018-02-26 07:42] LABS: ALBUMIN 3.2 gm/dl (3.1-4.5); CREATININE 8.29 mg/dL (0.55-1.02); POTASSIUM 4.8 mmol/L (3.5-5.1); TOTAL PROTEIN 6.4 gm/dL (6.4-8.2)
[2018-02-26 07:43] LABS: TROPONIN I 0.029 ng/ml (<0.045)
[2018-02-26 07:46] LABS: OVALOCYTES FEW; PLATELET SUFFICIENCY NORMAL (NORMAL); POLYCHROMASIA SLIGHT; TOTAL CELLS COUNTED 100 #CELLS
== END 2018-02-26 08:30 | disposition short-term general hospital (02) ==
LOC: ED 06:33
PROVIDERS: Student in an Organized Health Care Education/Training Program
DX: R20.0 Anesthesia of skin (principal); I50.33 Acute on chronic diastolic (congestive) heart failure; I48.91 Unspecified atrial fibrillation; J44.9 Chronic obstructive pulmonary disease, unspecified; E11.22 Type 2 diabetes mellitus with diabetic chronic kidney disease; N18.6 End stage renal disease; K21.9 Gastro-esophageal reflux disease without esophagitis; E66.01 Morbid (severe) obesity due to excess calories; I25.2 Old myocardial infarction; Z99.2 Dependence on renal dialysis; Z79.4 Long term (current) use of insulin; Z79.899 Other long term (current) drug therapy; Z79.82 Long term (current) use of aspirin; Z90.710 Acquired absence of both cervix and uterus; Z90.49 Acquired absence of other specified parts of digestive tract

== ENCOUNTER 2018-03-25 23:34 | Emergency (ER) | payer MEDICARE ==
[~2018-03-25] VITALS: Wt 90.7 kg
--- NOTE | ~2018-03-25 | EKG ---
[place], [place] ELECTROCARDIOGRAM REPORT NAME: YOSSI MULLINS UNIT #: [id number] ROOM: DOCTOR: EPIPHNII DRAFT REPORT BIRTHDATE: [birth year] [facility] Test Date: 2018-03-26 Test Time: 00:18:40 Pat Name: YOSSI MULLINS Department: Room: Gender: F Dumbwaiter Operator: Yoshi Greco : 1940 Requested By: JENAE MURRAY Order Number: [id number] Reading MD: Stevie Collier MD Measurements Intervals [place] Rate: 83 P: MD: QRS: -56 QRSD: 86 T: -8 QT: 385 QTc: 453 Interpretive Statements Atrial fibrillation Ventricular premature complex Left axis deviation Low voltage, extremity and precordial leads Abnormal R-wave progression, late transition Compared to ECG 02/26/2018 06:49:49 Ventricular premature complex(es) now present Left-axis deviation now present Sinus rhythm no longer present Right-axis deviation no longer present Electronically Signed On 03-28-2018 7:18:08 PST by Stevie Collier MD CM:EKGRPT:ELECTROCARDIOGRAM REPORT [id number] JENAE BYERS DRAFT REPORT JENAE MURRAY DO
[2018-03-26 00:49] LABS: BASO # 0.1 10*3/uL (0.0-0.1); BASO % 0.3 % (0.0-1.0); EOS # 0.1 10*3/uL (0.0-0.4); EOS % 0.8 % (1.0-4.0); HEMATOCRIT 34.8 % (37.0-47.0); HEMOGLOBIN 10.2 g/dl (12.0-16.0); LYMPH # 0.8 10*3/uL (1.3-4.4); LYMPH % 4.8 % (27.0-41.0); MEAN CELL VOLUME 105.1 fl (81.0-99.0); MEAN CORPUSCULAR HGB 30.8 pg (27.0-31.0); MEAN CORPUSCULAR HGB CONC 29.3 g/dl (33.0-37.0); MEAN PLATELET VOLUME 10.9 fl (9.6-12.3); MONO # 1.2 10*3/uL (0.1-1.0); MONO % 7.4 % (3.0-9.0); NEUT # 13.3 10*3/uL (2.3-7.9); NEUT % 86.1 % (47.0-73.0); PLATELET COUNT AUTOMATED 367 10*3/uL (130-400); RED BLOOD COUNT 3.31 10*6/uL (4.10-5.10); RED CELL DISTRI WIDTH 18.6 % (0-14.5); WHITE BLOOD COUNT 15.5 10*3/uL (4.8-10.8)
[2018-03-26 01:11] LABS: ALBUMIN 2.4 gm/dl (3.1-4.5); CREATININE 4.24 mg/dL (0.55-1.02); POTASSIUM 4.7 mmol/L (3.5-5.1); TOTAL PROTEIN 6.1 gm/dL (6.4-8.2); TROPONIN I 0.019 ng/ml (<0.045)
[2018-03-26 01:39] LABS: BILIRUBIN 1+ (NEGATIVE); BLOOD 3+ (NEGATIVE); CLARITY TURBID (CLEAR); COLOR YELLOW (YELLOW); GLUCOSE TRACE (NEGATIVE); KETONE NEGATIVE (NEGATIVE); LEUKO ESTERASE 2+ (NEGATIVE); NITRITE POSITIVE (NEGATIVE); UROBILINOGEN 0.2 E.U./dl (0.2-1.0)
[2018-03-26 01:47] LABS: BACTERIA 4+; RBC TNTC rbc/hpf (0-2); WBC TNTC wbc/hpf (0-5)
[2018-03-26 02:17] VITALS: BP 103/39
== END 2018-03-26 04:30 | disposition short-term general hospital (02) ==
LOC: ED 23:34
PROVIDERS: Student in an Organized Health Care Education/Training Program
DX: L02.214 Cutaneous abscess of groin (principal); L02.416 Cutaneous abscess of left lower limb; L02.415 Cutaneous abscess of right lower limb; A41.9 Sepsis, unspecified organism; J45.909 Unspecified asthma, uncomplicated; I48.91 Unspecified atrial fibrillation; I50.9 Heart failure, unspecified; J44.1 Chronic obstructive pulmonary disease with (acute) exacerbation; J96.10 Chronic respiratory failure, unspecified whether with hypoxia or hypercapnia; F03.90 Unspecified dementia, unspecified severity, without behavioral disturbance, psychotic disturbance, mood disturbance, and anxiety; K21.9 Gastro-esophageal reflux disease without esophagitis; E11.65 Type 2 diabetes mellitus with hyperglycemia; E87.5 Hyperkalemia; E87.1 Hypo-osmolality and hyponatremia; Z90.49 Acquired absence of other specified parts of digestive tract; Z90.710 Acquired absence of both cervix and uterus; Z79.82 Long term (current) use of aspirin; Z79.899 Other long term (current) drug therapy; Z86.73 Personal history of transient ischemic attack (TIA), and cerebral infarction without residual deficits

== ENCOUNTER 2018-05-01 21:15 | Inpatient (IN) | payer MEDICARE ==
--- NOTE | ~2018-05-01 | PR ---
[place], [place] PROGRESS NOTE NAME: YOSSI MULLINS UNIT #: [id number] [facility] DOCTOR: ARAM BOWDENSTACIE BIRTHDATE: [birth year] DOS: 05/03/2018 SUBJECTIVE: The patient was seen by Dr. Collier yesterday. The patient with persistent atrial fibrillation, history of dementia, end-stage renal disease, dialysis dependent with multiple leg surgeries, also with fasciotomy of the legs, admitted with significant shortness of breath. The patient right now supposed to have an echocardiogram done today. She is complaining of significant back pain. She is in atrial fibrillation, rates are about 90s to 100s. She is on Levophed at 1 mcg. The patient is supposed to have a repeat dialysis done today. PAST MEDICAL HISTORY: As mentioned with atrial fibrillation, CVA, congestive heart failure, respiratory failure, COPD, dyspnea, end-stage renal disease, morbid obesity, and history of myocardial infarction. PAST SURGICAL HISTORY: She has history of multiple surgeries with ileostomy, hysterectomy, appendectomy, cholecystectomy, small bowel resection, and leg surgeries with fasciotomy. MEDICATIONS: She is on medications, which include Eliquis, insulin, pravastatin, pantoprazole, and right now she is on Levophed. REVIEW OF SYSTEMS: Somewhat limited because of the critical nature of the patient and she is in Intensive Care Unit as mentioned in the HPI. PHYSICAL EXAMINATION: VITAL SIGNS: Her blood pressure today is 93/49. She is in atrial fibrillation, rate is about 100-110. NECK: Supple. No JVD. LUNGS: Diminished air entry. HEART: Sounds are irregularly irregular. ABDOMEN: Soft. EXTREMITIES: Diminished pulsations. NEUROLOGIC: She was moving all the extremities with intermittent confusion. She knows her name and place. LABORATORY DATA: Hemoglobin is 9.7 and hematocrit is 32.3. Electrolytes are normal. Creatinine is 3.3. IMPRESSION AND PLAN: The patient with persistent atrial fibrillation, congestive heart failure, hypotension, and renal failure. RECOMMENDATION: The patient will have an echocardiogram done today. After the dialysis, probably stop the Levophed and start a small dose of beta-roslyn as recommended. Monitor the heart rate and blood pressure very closely and we will follow up. [place], [place] PROGRESS NOTE NAME: YOSSI MULLINS UNIT #: [id number] ROOM: [facility] DOCTOR: STACIE CHIU MD BIRTHDATE: [birth year] STACIE CHIU MD CM:PNTRANS [id number] STACIE CHIU MD 05/03/18 0809 interface
--- NOTE | ~2018-05-01 | PR ---
[place], [place] PROGRESS NOTE NAME: YOSSI MULLINS UNIT #: [id number] ROOM: 415 DOCTOR: BOBBY VELOZ MD BIRTHDATE: [birth year] DOS: 05/09/2018 SUBJECTIVE: She is lying in with an inclined position. She does not complain of any palpitations, chest pain, breathing difficulty. She has hardly any cough. She has been eating reasonably well. PHYSICAL EXAMINATION: GENERAL: The patient who is very quiet, alert, oriented. She is not tachypneic. VITAL SIGNS: Temperature is normal, pulse is 76, blood pressure 144/80. NECK: JVP is normal. AJR is negative. No murmurs are present. EXTREMITIES: There is no edema in the lower extremities. RESPIRATORY: She has reduced breath sounds, some crackles in the lower zones. IMPRESSION: 1. Chronic atrial fibrillation with controlled ventricular rate. 2. End-stage renal disease. She is euvolemic. 3. Hyperkalemia has improved. She has moderate anemia. This is chronic. No new recommendations. BOBBY VELOZ MD CM:PNTRANS [id number] BOBBY VELOZ MD 05/09/18 1214 interface
--- NOTE | ~2018-05-01 | EKG ---
[place], [place] ELECTROCARDIOGRAM REPORT NAME: YOSSI MULLINS UNIT #: [id number] ROOM: [facility] DOCTOR: EPIPHANY DRAFT REPORT BIRTHDATE: [birth year] [facility] Test Date: 2018-05-12 Test Time: 11:54:41 Pat Name: YOSSI MULLINS Department: Room: [place] [address] Gender: F Transportation Project Manager: Daniela Payne : 1940 Requested By: DAVID LONDON Order Number: [id number] Reading MD: David London MD Measurements Intervals [place] Rate: 106 P: FL: QRS: 237 QRSD: 82 T: 49 QT: 302 QTc: 401 Interpretive Statements Atrial fibrillation Ventricular premature complex Markedly posterior QRS axis Low voltage, extremity and precordial leads Consider anterior infarct Minimal ST elevation, lateral leads Baseline wander in lead(s) V6 Compared to ECG 05/10/2018 20:32:09 Posterior QRS axis now present Myocardial infarct finding now present ST (T wave) deviation now present Electronically Signed On 05-25-2018 6:36:06 PST by David London MD CM:EKGRPT:ELECTROCARDIOGRAM REPORT [id number] DAVID LONDON MD EPIPHANY DRAFT REPORT DAVID LONDON MD
--- NOTE | ~2018-05-01 | EKG ---
[place], [place] ELECTROCARDIOGRAM REPORT NAME: YOSSI MULLINS UNIT #: [id number] ROOM: [facility] DOCTOR: JONN DRAFT REPORT BIRTHDATE: [birth year] [facility] Test Date: 2018-05-01 Test Time: 21:38:12 Pat Name: YOSSI MULLINS Department: er Room: [facility] Gender: F Technical Specialist Cytology: Eddie Gamez : 1940 Requested By: ILEANA PRINGLE Order Number: [id number] Reading MD: Jason Shanks MD Measurements Intervals [place] Rate: 118 P: IA: QRS: 0 QRSD: 72 T: 43 QT: 332 QTc: 466 Interpretive Statements Atrial fibrillation Low voltage, extremity and precordial leads Probable anteroseptal infarct, old Compared to ECG 03/26/2018 00:18:40 Ventricular premature complex(es) no longer present Left-axis deviation no longer present Electronically Signed On 05-02-2018 16:47:12 PST by Jason Shanks MD CM:EKGRPT:ELECTROCARDIOGRAM REPORT [id number] ILEANA BYERS DRAFT REPORT ILEANA PRINGLE DO
--- NOTE | ~2018-05-01 | PR ---
[place], [place] PROGRESS NOTE NAME: YOSSI MULLINS UNIT #: [id number] ROOM: [facility] DOCTOR: STACIE CHIU MD BIRTHDATE: [birth year] DOS: 05/04/2018 SUBJECTIVE: A 24-hour events noted. The patient's condition is improved. The Levophed has been discontinued. The patient examined in the Intensive Care Unit. OBJECTIVE: VITAL SIGNS: Pressures are like 90/60, right now is 120. HEENT: Unremarkable. NECK: Supple. No JVD. LUNGS: Diminished breath sounds. HEART: Sounds are regular. ABDOMEN: Soft, nontender. NEUROLOGIC: She appears to be stable. DIAGNOSTIC DATA: EKG shows atrial fibrillation, slightly rapid ventricular response. LABORATORY DATA: Sodium is 129, potassium is 4.2, and creatinine is 3.5. Hemoglobin is 9.5 and hematocrit is 31.5. Blood cultures are pending. IMPRESSION: Septicemia, pneumonia, tachycardic episodes, and hypotension. RECOMMENDATIONS: The patient's recommendations has already done. The patient has a history of atrial fibrillation, which is chronic. Continue the anticoagulation. Continue the beta-blockers. Monitor the heart rate and blood pressure and we will follow up. STACIE CHUI MD CM:PNTRANS 1559 STACIE CHIU MD 05/05/18 0207 interface
--- NOTE | ~2018-05-01 | EKG ---
[place], [place] ELECTROCARDIOGRAM REPORT NAME: YOSSI MULLINS UNIT #: [id number] ROOM: 415 DOCTOR: JONN DRAFT REPORT BIRTHDATE: [birth year] [facility] Test Date: 2018-05-07 Test Time: 09:18:08 Pat Name: YOSSI MULLINS Department: Room: 415 1 Gender: F In House Counsel: Daniela Payne : 1940 Requested By: GARTH CHOU Order Number: [id number] Reading MD: Good Marcos MD Measurements Intervals [place] Rate: 94 P: [place]: QRS: -55 QRSD: 84 T: 116 QT: 368 QTc: 461 Interpretive Statements Atrial fibrillation Ventricular premature complex Left anterior fascicular block Low voltage, extremity and precordial leads Abnormal R-wave progression, late transition Nonspecific T abnormalities, lateral leads Compared to ECG 05/01/2018 21:38:12 Ventricular premature complex(es) now present Left anterior fascicular block now present T-wave abnormality now present Myocardial infarct finding no longer present Electronically Signed On 05-09-2018 7:52:33 PST by Good Marcos MD CM:EKGRPT:ELECTROCARDIOGRAM REPORT 0752 GARTH LUNSFORD DRAFT REPORT GARTH CHOU
--- NOTE | ~2018-05-01 | CON ---
[place], [place] REPORT OF CONSULTATION NAME: YOSSI MULLINS UNIT #: [id number] [facility] DOCTOR: PARTH GOMES MD BIRTHDATE: [birth year] DOS: 05/05/2018 REASON FOR CONSULTATION: Bilateral groin ulcer, infected with ESBL. CHIEF COMPLAINT: Shortness of breath. HISTORY OF PRESENTING ILLNESS: This is a 77-year-old female who presented from [facility] for shortness of breath, currently in the ICU for close monitoring and she is not intubated. She also has end-stage renal disease on hemodialysis and she is getting breathing treatment as well as concern for congestive heart failure with close fluid monitoring. She has a history of complicated surgeries in the past. She has history of aortoiliac occlusive disease and had bypass graft with bilateral open wounds in the distribution of femoral cutdown. She has an upper abdomen incision that is also not completely healed. She has been evaluated at [facility] for her occlusive arterial disease of lower extremities and underwent embolectomy and possible graft placement. She also had ileocecectomy for cecal perforation and currently has a colostomy in place. Her bilateral inguinal wounds were cultured and that has a polymicrobial growth with ESBL E. coli, Proteus mirabilis and her initial blood cultures from 05/01/2018 grew Staph epidermidis that was considered contaminant. At this time, the patient is getting Levaquin plus vancomycin plus Zosyn. Her vitals are stable. Labs reveal leukocytosis. Imaging of the chest x-ray noted no concern for a focal consolidation or pneumonia. PAST MEDICAL HISTORY: Significant for: 1. Recent hospitalization at [facility] for vascular workup including bilateral femoral cutdown thrombectomy of the femoral artery, left lower extremity fasciotomy, ileocecectomy for cecal perforation. 2. History of chronic obstructive pulmonary disease. 3. End-stage renal disease, on hemodialysis. 4. Atrial fibrillation. 5. L1 compression fracture. 6. End-stage chronic obstructive pulmonary disease. 7. Uncomplicated moderate persistent bronchial asthma. 8. Longstanding congestive heart failure with preserved ejection fraction. 9. Peripheral vascular disease as mentioned. PAST SURGICAL HISTORY: Includes complete hysterectomy, appendectomy, cardiac catheterization, cholecystectomy, dialysis catheter insertion, left eye surgery, therapeutic bronchoscopy, bilateral femoral cutdown with thrombectomy, ileum removal, perforation of cecum. MEDICATIONS: Reviewed. ALLERGIES: No known drug allergies. SOCIAL HISTORY: She has been smoking since she was 18 years old and smoked 2 packs of cigarettes per day. Nonalcoholic, no illicit drug use. FAMILY HISTORY: Parents . Mother, history of diabetes. [place], [place] REPORT OF CONSULTATION NAME: YOSSI MULLINS UNIT #: [id number] ROOM: [facility] DOCTOR: PARTH GOMES MD BIRTHDATE: [birth year] REVIEW OF SYSTEMS: A 12-point review of systems has been done. Pertinent negative or positive has been included in HPI, rest are noncontributory. PHYSICAL EXAMINATION: VITAL SIGNS: Current vitals include temperature 97.2, pulse rate 97, respiratory rate 24, blood pressure 111/53, oxygen saturation 97% on room air. HEENT: Atraumatic, normocephalic. PERRLA, EOMI. RESPIRATORY: Air entry bilaterally equal. No wheeze or crackles. HEART: S1, S2 normal. ABDOMEN: Distended. SKIN: Midline incision clean. Has post-surgical clipping in place with fibrinous exudate, no discharge, no odor. Bilateral inguinal area ulcerations noted. They are clean with no undermining of edges sharply demarcated, fibrinous exudate at the base. No discharge, no foul smell. No tenderness, no surrounding redness. Other old healed scars over bilateral thigh region. LABORATORY DATA AND IMAGING: Reviewed, mentioned in HPI. ASSESSMENT: 1. Bilateral inguinal wounds, currently not infected. 2. Midline incision abdominal wound, not infected. 3. End-stage renal disease, on hemodialysis. 4. Acute hypoxic respiratory failure, congestive heart failure versus chronic obstructive pulmonary disease, currently not concerning for pneumonia. PLAN: At this time, I would discontinue her antibiotics as there is no concern for infection. Surgery has also evaluated the patient and have done selective debridement. Continue with wet to dry dressing. Thank you for your consult. Please call for any questions. Discussed with the ICU resident in great details. ID will follow as needed. Parth Gomes MD CM:CONSTR:REPORT OF CONSULTATION 1518 06/08/18 1501 interface
--- NOTE | ~2018-05-01 | PR ---
[place], [place] PROGRESS NOTE NAME: YOSSI MULLINS UNIT #: [id number] ROOM: [facility] DOCTOR: MAYA CHEUNG MD,NELSON BIRTHDATE: [birth year] DOS: 05/03/2018 PULMONARY PROGRESS NOTE SUBJECTIVE: The patient was noted comfortable at this time without any acute distress. She has not been reported symptoms of fever or chills. She is currently receiving hemodialysis for this morning as well. She denies symptoms of nausea or vomiting. The blood culture one of the two sets on 05/01/2018 were noted gram-positive cocci in clusters. She denies symptoms of headache or diplopia. The hypotension was resolving. Remaining review of systems were noted normal. The patient's past, family, and social history from yesterday reviewed and remains unchanged. PHYSICAL EXAMINATION: VITAL SIGNS: Normal temperature, respiratory rate of 18-24, heart rate of 77-107, blood pressure of 103/48-89/32. Pulse oxygen saturation on 2.5 liters nasal cannula is 99% saturation. HEENT: On examination, no acute change. NECK: Supple. CARDIOVASCULAR: S1, S2 is audible. LUNGS: The patient was noted with decreased breath sounds in the lungs bilaterally. Occasional crackles. No wheezing. ABDOMEN: Soft, nontender. Bowel sounds present. EXTREMITIES: No new changes. The wounds of the extremities, which has been currently managed by the test specialist. CENTRAL NERVOUS SYSTEM: The patient was noted with general weakness and fatigue. MUSCULOSKELETAL: Without any acute deformities. LABORATORY DATA: The blood culture, gram-positive cocci in clusters in 1 of the 2 bottles. The urine culture, light growth of gram-negative bacilli about 10,000 colonies forming units. CBC of the this morning: WBC count of 6.8, hemoglobin of 9.7, hematocrit of 32.3, and platelet count is normal. CMP that was done as BUN of 20 and creatinine of 3.37. Potassium was noted currently normal. Sodium is mildly decreased at 133. IMPRESSION: 1. The patient has been currently admitted to the hospital noted with severe acute hypoxic respiratory failure with chronic hypoxic respiratory failure. 2. End-stage renal failure, on hemodialysis. 3. Resolution of the hypokalemia. 4. Hypotension, resolving. 5. Gram-positive cocci bacteremia. 6. There were no findings of acute congestive heart failure noted on admission as well. 7. Intravascular volume depletion as well with possibility of sepsis. PLAN OF MANAGEMENT: The vancomycin to be given for this patient, dose per [place], [place] PROGRESS NOTE NAME: YOSSI MULLINS UNIT #: [id number] ROOM: [facility] DOCTOR: NELSON JENKINS MD BIRTHDATE: [birth year] pharmacy. Continuation of the bronchodilators and oxygen supplementation and antibiotic spectrum will be decreased with change after all the culture results availability including the wound cultures. Continue maximum nutritional support. Continue hemodialysis as per the Nephrology services. Monitor hemodynamics. Titrate off the vasopressors. NELSON TREJO MD CM:KALI 1014 [id number] NELSON CHEUNG MD 05/04/18 0054 interface
--- NOTE | ~2018-05-01 | CON ---
[place], [place] REPORT OF CONSULTATION [id number] UNIT #: [id number] ROOM: [facility] DOCTOR: NELSNO JENKINS MD BIRTHDATE: [birth year] DOS: 05/02/2018 PULMONARY CONSULTATION, EVALUATION, AND MANAGEMENT CONSULTATION REQUESTED BY: David Alba M.D. REASON FOR CONSULTATION: For assessment of symptoms of shortness of breath. HISTORY OF PRESENT ILLNESS: The patient is a 77-year-old white female patient is known to me from the past. The patient has been admitted to the hospital under the care of Dr. David Alba. The patient has been admitted to this hospital on 05/02/2018. The patient is currently a resident of [facility] as the patient has been previously admitted in [facility] because of occlusive arterial disease of lower extremities, underwent intervention with embolectomy, possibility of graft insertion. The patient still has wounds, which has been noted open of lower extremity and nonhealing. She has been treated at [facility]. She has a known history of chronic dementia. The patient has been reported symptoms of shortness of breath, also noted oxygen desaturation with oxygen, use of pulse oxygen saturation of 77%. She has been sent to the hospital for further medical management. The patient has been currently admitted to the hospital in the Intensive Care Unit for further medical management, has been receiving hemodialysis. There was a question of congestive heart failure, was also raised during this admission. The patient was still complaining of symptoms of shortness of breath. She denies any coughing, chest pain, or hemoptysis. The patient has a known history of dementia. The history would not been noted very reliable. Majority of history is contained documented is reviewed by my past consultation of this patient as she has been known to me from the past, has the consultation done for this patient by the other physician on this admission and history and physical examination done by the primary care attending. PAST MEDICAL HISTORY: Noted: 1. Recent hospitalization at [facility] for the vascular workup of old left lower extremity, underwent bilateral femoral cutdown thrombectomy of the femoral artery, left lower extremity fasciotomy, ileocecectomy for cecal perforation and other interventions. 2. History of chronic hypoxic respiratory failure as well. 3. End-stage renal failure, on hemodialysis, 3 times a week. 4. Atrial fibrillation, long-term. 5. L1 compression fracture. 6. End-stage chronic obstructive pulmonary disease/emphysema. 7. Uncomplicated moderate persistent bronchial asthma. 8. Longstanding congestive heart failure with diastolic dysfunction. 9. Gastroesophageal reflux. 10. Chronic obesity with gradual weight loss noted because of the multiple chronic medical illnesses. 11. Peripheral vascular disease, acute arterial occlusion, management done at [facility] in the last few weeks. PAST SURGICAL HISTORY: [place], [place] REPORT OF CONSULTATION NAME: YOSSI MULLINS UNIT #: [id number] ROOM: [facility] DOCTOR: MAYA CHEUNG MD,NELSON BIRTHDATE: [birth year] 1. Complete hysterectomy. 2. Appendectomy. 3. Cardiac catheterization. 4. Cholecystectomy. 5. Dialysis catheter insertion. 6. Left eye surgery. 7. Therapeutic bronchoscopy, last one done in 05/2017. 8. Bilateral femoral cutdown with thrombectomy. 9. Ileum removal because of perforation as well. CURRENT MEDICATIONS: Current medications administered noted as use of simvastatin, zinc sulfate, vitamin D, aspirin, Protonix, metoprolol succinate, Aricept, Eliquis, Pulmicort Respules, DuoNeb, Levaquin, vancomycin, Zosyn, and others. DRUG ALLERGIES: Noted as no known drug allergies. SOCIAL HISTORY: The patient was known with tobacco use at the age of [id number], 2 packs of cigarettes per day that has been discontinued in the past few months. There was no history of alcohol use or illicit drug use. FAMILY HISTORY: Both parents have been . History about dad was unknown. Mother at the age of 76 from complications of diabetes mellitus. REVIEW OF SYSTEMS: Could not be performed because of lack of good communication in understanding to answer the question with history of dementia. PHYSICAL EXAMINATION: GENERAL: This is a 77-year-old female patient, who has been currently noted to be awake and alert. Height of 5 feet, weight of 163 pounds, and BMI of 31.9. VITAL SIGNS: Normal temperature, respiratory rate of 27-24, heart rate of 103-164 noted this afternoon. The blood pressure is ranging between 105/51 and 112/42. The blood pressure on admission was noted as 74/34. The pulse oxygen saturation was recorded as 99% saturation on the BiPAP and then later on 3 liters nasal cannula was 100% saturation. HEENT: Examination shows head was atraumatic. Eye nonicterus. NECK: Supple. CARDIOVASCULAR: S1, S2 is audible. LUNGS: The patient was noted with mild decreased breath sounds. There were no wheeze or crackles heard. Examination was limited. ABDOMEN: Soft. Bowel sounds present. EXTREMITIES: The patient was noted with changes of the wound of lower extremity, currently wrapped with dressings. CENTRAL NERVOUS SYSTEM: The patient was moving the upper and lower extremities on her own will. MUSCULOSKELETAL: Without any acute deformities. CENTRAL NERVOUS SYSTEM: Cannot be fully performed. LABORATORY DATA: CBC yesterday, WBC count was 8.5, hemoglobin was 10.2, hematocrit was 34.7, and platelet count was normal. The lactic acid was 2.3 on [place], [place] REPORT OF CONSULTATION NAME: YOSSI MULLINS UNIT #: [id number] ROOM: [facility] DOCTOR: NELSON JENKINS MD BIRTHDATE: [birth year] 05/01/2018. The PT and INR was noted as 0.9 yesterday on admission. CMP yesterday on admission, BUN was 31, creatinine was 4.15. Sodium was 135. The CBC of this morning, WBC count was normal, hemoglobin was 9.7, and platelet count was noted as normal. CMP of 05/02/2018, BUN was 37, creatinine was 4.67, and glucose was 194. Sodium was 134, potassium was 5.4 prior to the hemodialysis, which has been given at this time. Arterial blood gases this morning at 3:00 venous blood gas. Repeat arterial blood gas, pH of 7.47, pCO2 of 37, and pO2 of 67.4 with nasal cannula supplementation of oxygen. IMAGING DATA: Chest x-ray only one view was done on admission was reviewed, which showed false appearance of the infiltration or pleural effusion on the left side, large cardiomegaly, which was also assessed and compared to the lower images of thoracic CT scan as a part of the CT scan of the abdomen taken. Small infiltration and/or atelectasis noted in the left upper lobe as a new finding. There was no finding of acute congestive heart failure or any pleural fluid bilaterally. The right lung was noted completely clear. IMPRESSION: 1. The patient has been currently noted with a history of end-stage renal failure, on hemodialysis, presented to the hospital with severe acute on chronic hypoxemic respiratory failure, multifactorial. 2. Possible pneumonia in the left upper lobe cannot be completely excluded versus area of atelectasis. 3. Multiple wounds of the extremities noted, which has been debrided this morning by Dr. Jeronimo. 4. Hyperkalemia, noted mild without any symptomatic EKG changes noted related to the end-stage renal failure. 5. The patient with hypertension, noted on admission with possible intravascular volume depletion versus sepsis could be considered in the differential diagnosis. 6. The patient with history of chronic obstructive lung disease and bronchial asthma, does not have any acute exacerbation at this time. 7. History of chronic dementia and overall poor nutritional status. PLAN OF MANAGEMENT: Hemodialysis will be completed for the electrolyte imbalance. There was no finding of congestive heart failure, vasopressor to maintain a mean arterial pressure of 65 or greater to be kept. Continue current broad-spectrum intravenous antibiotics with de-escalation of antibiotics, Unasyn, will be done after all the cultures are available. The cultures of the wound should be taken as well today. Bronchodilators administration and use of the BiPAP to stable respiratory status will be continued. Other additional treatment changes will be ordered based on the progression of illness. Nutritional support as tolerated. Supportive therapy, plan of management, care plan, and other treatment as accordingly. Other additional treatment changes will be made based on progression of the illness. Total time in pulmonary critical care evaluation and management on this consultation is 34 minutes. [place], [place] REPORT OF CONSULTATION NAME: YOSSI MULLINS UNIT #: [id number] ROOM: [facility] DOCTOR: NELSON JENKINS MD BIRTHDATE: [birth year] NELSON TREJO MD CM:CONSTR:REPORT OF CONSULTATION 1615 05/23/18 0835 interface
--- NOTE | ~2018-05-01 | PR ---
[place], [place] PROGRESS NOTE NAME: YOSSI MULLINS UNIT #: [id number] ROOM: 415 DOCTOR: BOBBY VELOZ MD BIRTHDATE: [birth year] DOS: 05/07/2018 SUBJECTIVE: She is undergoing dialysis at this time. She has no nausea. Her appetite has been reasonable. No chest pain, according to her friend close to her, she has been choking and mood has been fairly decent. She has no chest pain or palpitation. PHYSICAL EXAMINATION: GENERAL: The patient looks a little pale, but she is alert, oriented. VITAL SIGNS: Temperature is normal. Pulse is irregular at 80 beats per minute. NECK: JVP is normal. LUNGS: She has crackles in both lungs. EXTREMITIES: No edema of the lower extremities and feet are warm. IMPRESSION: 1. This patient is in atrial fibrillation with a controlled ventricular rate. 2. End-stage renal disease, volume status seems fairly decent, but she is dialyzing today. No new recommendations. BOBBY VELOZ MD CM:PNTRANS [id number] BOBBY VELOZ MD 05/07/18 1205 interface
--- NOTE | ~2018-05-01 | PR ---
[place], [place] PROGRESS NOTE NAME: YOSSI MULLINS UNIT #: [id number] ROOM: 415 DOCTOR: STACIE CHIU MD BIRTHDATE: [birth year] DOS: 05/10/2018 SUBJECTIVE: The patient is examined. Her cardiac status has not changed. Breathing has significantly improved. OBJECTIVE: GENERAL: She is comfortable. VITAL SIGNS: Blood pressure is stable. She is in atrial fibrillation with a controlled ventricular response. HEENT: Unremarkable. NECK: Supple. No JVD. LUNGS: Diminished air entry. HEART: Sounds are irregularly irregular. ABDOMEN: Soft, nontender. REVIEW OF SYSTEMS: Six to eight systems reviewed, unchanged from before, and as per HPI. LABORATORY DATA: Shows hemoglobin 8.8, hematocrit 29.7. Electrolytes are normal. Creatinine is 3.07. IMPRESSION: 1. End-stage renal disease. 2. Anemia. 3. Hypotension. 4. Chronic atrial fibrillation status post vascular intervention and bypass graft. 5. Status post colostomy. 6. Dementia. PLAN: Continue the present care. Cardiac status appears to be stable. STACIE CHIU MD CM:PNTRANS [id number] STACIE CHIU MD 05/10/18 1139 interface
--- NOTE | ~2018-05-01 | EKG ---
[place], [place] ELECTROCARDIOGRAM REPORT NAME: YOSSI MULLINS UNIT #: [id number] ROOM: 415 DOCTOR: EPIPHANY DRAFT REPORT BIRTHDATE: [birth year] [facility] Test Date: 2018-05-10 Test Time: 20:32:09 Pat Name: YOSSI MULLINS Department: 4E Room: 415 1 Gender: F Director Of Nuclear Medicine: Adalid Carr : 1940 Requested By: JING LONDON Order Number: [id number] Reading MD: Stevie Collier MD Measurements Intervals [place] Rate: 95 P: OR: QRS: 27 QRSD: 77 T: 30 QT: 350 QTc: 440 Interpretive Statements Atrial fibrillation Ventricular premature complex Low voltage, extremity and precordial leads Abnormal R-wave progression, late transition Compared to ECG 05/07/2018 09:18:08 Left anterior fascicular block no longer present T-wave abnormality no longer present Electronically Signed On 05-12-2018 5:18:33 PST by Stevie Collier MD CM:EKGRPT:ELECTROCARDIOGRAM REPORT 31 7 JING LONDON MD EPIPHANY DRAFT REPORT JING LONDON MD
--- NOTE | ~2018-05-01 | PR ---
[place], [place] PROGRESS NOTE NAME: YOSSI MULLINS UNIT #: [id number] ROOM: 415 DOCTOR: MAYA CHEUNG MD,NELSON BIRTHDATE: [birth year] DOS: 05/07/2018 PULMONARY PROGRESS NOTE SUBJECTIVE: The patient has been noted with reduction of symptoms of wheezing in the last 24 hours. The coughing has been decreased. She has been planned for her hemodialysis for today. Denies symptoms of chest pain or fever. OBJECTIVE: VITAL SIGNS: Normal temperature, respiratory rate 20, heart rate 80, blood pressure 110/60. Pulse oxygen saturation recorded as 100% on 3 liters nasal cannula at rest. HEENT: No acute change. NECK: Supple. CARDIOVASCULAR: S1 and S2 audible. LUNGS: The patient was noted with occasional wheezing. There were no crackles. ABDOMEN: Soft, nontender. Bowel sounds present. EXTREMITIES: Without any acute edema. IMPRESSION: 1. The patient with wound infection with resolving acute respiratory failure. 2. Improving acute exacerbation of chronic obstructive pulmonary disease. PLAN OF MANAGEMENT: Continue with current bronchodilators, oxygen supplementation, other therapy and plan of management as in progress. Proceed with hemodialysis. No changes from the pulmonary standpoint at this point would be needed. NELSON TREJO MD CM:PNTRANS [id number] NELSON CHEUNG MD 05/07/18 1531 interface
--- NOTE | ~2018-05-01 | PR ---
[place], [place] PROGRESS NOTE NAME: YOSSI MULLINS UNIT #: [id number] ROOM: 415 DOCTOR: BOBBY VELOZ MD BIRTHDATE: [birth year] DOS: 05/05/2018 SUBJECTIVE: The patient was extubated, and she is awake and alert. She is oriented and clear in her mind. She has no chest pain, has not had any breathing difficulty and no palpitations. She dialyzed earlier. PHYSICAL EXAMINATION: GENERAL: The patient is very pleasant, alert. Her complexion is a little pale. VITAL SIGNS: Temperature is normal; pulse is around 100, irregular; blood pressure 111/53. NECK: JVP is normal. LUNGS: She has rhonchi and crackles, inspiratory and expiratory, in both lungs with reduced breath sounds. EXTREMITIES: Edema is minimal. LABORATORY DATA: Monitor shows atrial fibrillation with rate between 90 and 100. Chest x-ray done yesterday was reviewed by me. It did not show any acute abnormality. There is likely to be a mild left pleural effusion. IMPRESSION: 1. Chronic atrial fibrillation. Ventricular rate is under adequate control now. 2. She appears euvolemic. 3. An echocardiogram had shown normal left ventricular systolic function and normal right ventricular systolic function. No new recommendations. BOBBY VELOZ MD CM:PNTRANS 51 [phone] BOBBY VELOZ MD 05/06/182025 interface
--- NOTE | ~2018-05-01 | PR ---
[place], [place] PROGRESS NOTE [id number] UNIT #: [id number] ROOM: [facility] DOCTOR: JON HIGUERA MD BIRTHDATE: [birth year] DOS: 05/10/2018 SUBJECTIVE: The patient has been admitted to the hospital with sepsis with abdominal wound and wound in her groin with diabetes mellitus; end-stage renal failure, on renal dialysis; ASHD; cardiomyopathy; obesity and multiple other medical problems. She right now is not in any distress. She is improving gradually and her wounds are healing. There is no chest pain, no difficulty in breathing, no nausea, no vomiting. LABORATORY DATA: Her CBC today showed white count 10,300, hemoglobin 8.8, hematocrit 29.7. Basic metabolic profile showed glucose 103, BUN 31, creatinine 3.07, GFR 15. OBJECTIVE: VITAL SIGNS: Her blood pressure is 129/52, pulse is 75, respirations 20, temperature 98.3. JON HIGUERA MD CM:PNTRANS 1103 1132 JON HIGUERA MD 05/30/18 1002 interface
--- NOTE | ~2018-05-01 | PR ---
[place], [place] PROGRESS NOTE NAME: YOSSI MULLINS UNIT #: [id number] ROOM: [facility] DOCTOR: MAYA CHEUNG MD,NELSON BIRTHDATE: [birth year] DOS: 05/05/2018 PULMONARY PROGRESS NOTE SUBJECTIVE: The patient has been noted much more awake and alert this morning, comfortable. Vasopressor therapy has been discontinued with improvement in the hypotension. Shortness breath still reported by the patient with general weakness was also described. There were no symptoms of chest pain or any extremity pain reported by the patient. She was planned for getting her routine hemodialysis to be given today. Wound culture has been isolated with an evidence of Proteus mirabilis in 2 cultures and the other culture shows evidence of E. coli. The E. coli noted with ESBL species. Blood culture was noted without any bacterial growth. REVIEW OF SYSTEMS: Otherwise limited and noted negative. PHYSICAL EXAMINATION: VITAL SIGNS: Normal temperature, respiratory 24-18, heart rate 103, blood pressure 91/42-111/53. Pulse oxygen saturation recorded on 2.5 L nasal cannula 97% saturation. HEENT: Examination shows no new change. NECK: Supple. CARDIOVASCULAR: S1, S2 is audible. LUNGS: The patient was noted without any wheeze or crackles. ABDOMEN: Soft, nontender. Bowel sounds present. EXTREMITIES: Noted without any new changes. The leg had been wrapped with a bandage. MUSCULOSKELETAL: Noted without any acute deformities. CENTRAL NERVOUS SYSTEM: General weakness and fatigue. LABORATORY DATA: The ferritin level noted significantly elevated in 2005, severely increased. The wound culture grew of Proteus mirabilis. The other was ESBL E. coli. One of the blood culture noted on 05/01/2018 most likely a contamination as Staphylococcus epidermidis. CMP this morning; BUN 28, creatinine 4.55, sodium 127, potassium 5.4. CBC of this morning; WBC count normal, hemoglobin 8.4, hematocrit 28.6, platelet count normal. IMPRESSION: 1. The patient who has been currently treated for the acute respiratory failure has been improving with chronic respiratory failure, hypoxemia. 2. End-stage renal failure, on hemodialysis, electrolyte imbalance with hypokalemia and hyperkalemia related to end-stage renal failure. The wound infection was a colonization as well, which has been currently assessed by the surgical team. 3. Atrial fibrillation. PLAN OF TREATMENT: Follow the recommendation and management per surgical team. Continuation of bronchodilators, oxygen supplementation. Continue hemodialysis as well and other treatment plan and management. Clinically, the patient has been showing improvement in the respiratory symptoms and overall status with [place], [place] PROGRESS NOTE NAME: YOSSI MULLINS UNIT #: [id number] ROOM: [facility] DOCTOR: MAYA CHEUNG MD,NELSON BIRTHDATE: [birth year] decreased oxygen requirement. The vasopressors have been discontinued. NELSON TREJO MD CM:PNTRANS [id number] NELSON CHEUNG MD 05/06/18 0057 interface
--- NOTE | ~2018-05-01 | PR ---
[place], [place] PROGRESS NOTE NAME: YOSSI MULLINS UNIT #: [id number] ROOM: [facility] DOCTOR: BOBBY VELOZ MD BIRTHDATE: [birth year] DOS: 05/12/2018 SUBJECTIVE: This patient had been doing quite well and this morning she developed acute shortness of breath and "I can't breathe, I can't breathe" and is on bronchodilator therapy now. She is fairly tachypneic. She has no chest pain or palpitations. She dialyzed 2 days and is due to dialyze today. PHYSICAL EXAMINATION: GENERAL: The patient is in no respiratory distress. She is receiving bronchodilator therapy now and is fairly tachypneic. She is very anxious as well. Complexion is pale. VITAL SIGNS: Temperature is normal. NECK: JVP appears to be decreased. CARDIOVASCULAR: Cardiac auscultation reveals irregular heart rate about 124 beats per minute, blood pressure 150/81. LUNGS: She has reduced breath sounds with rhonchi in both lungs, some crackles as well. EXTREMITIES: No edema at all in the lower extremities. Monitor shows atrial fibrillation with rate in the 120s. IMPRESSION: 1. Chronic atrial fibrillation with rate that is fast. Now part of the reason is from that she is anxious but also because she is in respiratory distress. I have instructed the nurse to give her 5 mg of Lopressor IV to slow down the heart rate. 2. I feel that she has some degree of pulmonary edema; therefore, a stat chest x-ray will be obtained. She is due to undergo hemodialysis today and her dry weight needs to be brought down by a kilo or so. I discussed this with patient's nurse. [place], [place] PROGRESS NOTE NAME: YOSSI MULLINS UNIT #: [id number] ROOM: [facility] DOCTOR: BOBBY VELOZ MD BIRTHDATE: [birth year] BOBBY VELOZ MD CM:PNTRANS 9 [phone] BOBBY VELOZ MD 05/13/18 0421 interface
--- NOTE | ~2018-05-01 | PR ---
[place], [place] PROGRESS NOTE NAME: YOSSI MULLINS UNIT #: [id number] ROOM: 415 DOCTOR: BOBBY VELOZ MD BIRTHDATE: [birth year] DOS: 05/08/2018 SUBJECTIVE: She just woke up from her sleep, quite tired, but oriented. She is comfortable. She does not have any chest pain, has not had any palpitation, breathing is fine. A little cough and nonproductive. She had no nausea or abdominal pain. PHYSICAL EXAMINATION: GENERAL: This revealed the patient who is comfortable. Complexion is a little pale. VITAL SIGNS: Pulse is 88, irregular; blood pressure 108/56. NECK: JVP is normal. AJR is negative. CARDIOVASCULAR: No obvious murmurs. LUNGS: She has few crackles in both lungs. Breath sounds are pretty decent. EXTREMITIES: There is no edema in the lower extremities. Feet are warm. LABORATORY DATA: Hemoglobin today is 8.9 g/dL, pretty much steady. BUN is 31, creatinine 4.49, potassium is 6.1, sodium 134. IMPRESSION: 1. Chronic atrial fibrillation with controlled ventricular rate. 2. Hepatic failure disease. She is euvolemic. 3. Severe hyperkalemia and this needs to be addressed. 4. Moderate anemia. RECOMMENDATIONS: Potassium. Her hyperkalemia needs treatment. She probably would benefit from Kayexalate. BOBBY VELOZ MD CM:PNTRANS [id number] 1157 BOBBY VELOZ MD 05/08/18 1156 interface
--- NOTE | ~2018-05-01 | PR ---
[place], [place] PROGRESS NOTE [id number] UNIT #: [id number] ROOM: [facility] DOCTOR: JON HIGUERA MD BIRTHDATE: [birth year] DOS: 05/11/2018 SUBJECTIVE: The patient who has been admitted to the hospital with multiple problems including abdominal wound and wounds in her groin, end-stage renal failure, on dialysis, ASHD, cardiomyopathy, obesity, diabetes mellitus and also COPD. She is improving slowly. Her wounds are healing slowly. She denies any chest pain. Her breathing is much better. No nausea, no vomiting. Eating satisfactorily. No edema of leg. Her chest x-ray done yesterday showed no acute pulmonary pathology. No significant change since the previous examination. Her troponin level is 0.26, which is normal. Her EKG showed ventricle premature complex, low voltage in the precordial leads, left ventricular fascicular are no longer present, so it is showing improvement as compared to the last EKG. OBJECTIVE: VITAL SIGNS: Her blood pressure 94/66, pulse 81, respirations 18, temperature 98.9. CHEST: Clear. HEART: Regular. ABDOMEN: Soft. JON HIGUERA MD CM:PNTRANS [id number] JON HIGUERA MD 05/30/18 1003 interface
--- NOTE | ~2018-05-01 | PR ---
[place], [place] PROGRESS NOTE NAME: [facility]: [id number] UNIT #: [id number] ROOM: [facility] DOCTOR: JON HIGUERA MD BIRTHDATE: [birth year] DOS: 05/08/2018 SUBJECTIVE: The patient who has been admitted to the hospital with acute exacerbation of COPD with emphysema with hypertension, diabetes mellitus, chronic renal failure. She is having bilateral inguinal area wounds and also having abdominal wall and the patient has been seen by Infectious Disease expert. According to them, the patient is having colonization of bilateral groin wound with Proteus and Escherichia coli and does not have any sign of septicemia. So, advised to repeat the blood culture. Her CBC today showed white count 6100, hemoglobin 8.9, hematocrit 29.9, which she was anemic before also. Basic metabolic profile showed glucose 136, BUN 26, creatinine 3.46, GFR 13. She has chronic renal failure. Blood culture did not grow any bacteria 2 times. OBJECTIVE VITAL SIGNS: Her blood pressure is 92/50, pulse 80, respirations 18, temperature 97.7. CHEST: Showing increased expiration. No crepitation. HEART: Regular. ABDOMEN: Soft. JON HIGUERA MD CM:PNTRANS [phone] JON HIGUERA MD 05/30/18 0958 interface
--- NOTE | ~2018-05-01 | PR ---
[place], [place] PROGRESS NOTE NAME: YOSSI MULLINS UNIT #: [id number] ROOM: [facility] DOCTOR: KARLA GOMES MD BIRTHDATE: [birth year] DOS: 05/07/2018 ADDENDUM I agree with the assessment and plan made by the nurse practitioner, Thea Marcos. I reviewed the labs and imaging, made the necessary changes in the note. Karla Gomes MD CM:PNTRANS [id number] KARLA GOMES MD 06/23/18 0830 interface
--- NOTE | ~2018-05-01 | PR ---
[place], [place] PROGRESS NOTE NAME: YOSSI MULLINS [facility] #: [id number] UNIT #: [id number] [place]OM: [facility] [place] DOCTOR: JON HIGUERA MD BIRTHDATE: [birth year] DOS: 05/07/2018 SUBJECTIVE: The patient has been admitted to the hospital with wound on the right thigh with open wound anterior abdominal wall, tachycardia, tachypnea, hypotension, obesity, acute respiratory failure with hypoxia and hypercapnia, hyponatremia, hyperkalemia, hypochloremia, hyperglycemia, severe protein chlorine malnutrition, lactic acidosis, proteinuria, hematuria, bacteriuria, severe sepsis, congestive heart failure, asthma, diabetes mellitus, GERD syndrome, esophagitis, COPD, atrial fibrillation, end-stage renal failure, on dialysis, and the patient is gradually improving. At present, she is getting dialysis done and she is not in any acute distress. Her basic metabolic profile showed glucose 216, BUN 31, creatinine 4.49, GFR 9, sodium is 134, potassium is 6.1 which is high, other values are normal. Electrocardiogram showed atrial fibrillation with ventricular premature complex, left ventricular fascicular block, low voltage, no acute change seen. Blood culture did not grow any bacteria. OBJECTIVE: VITAL SIGNS: Her blood pressure is 110/60, pulse 80, respirations 20, temperature 98.8. CHEST: Clear. HEART: Somewhat irregular. ABDOMEN: Soft. JON HIGUERA MD CM:PNTRANS [phone] JON HIGUERA MD 05/30/18 1001 interface
--- NOTE | ~2018-05-01 | PR ---
[place], [place] PROGRESS NOTE NAME: YOSSI MULLINS UNIT #: [id number] ROOM: [facility] DOCTOR: JON HIGUERA MD BIRTHDATE: [birth year] DOS: 05/09/2018 SUBJECTIVE: The patient has been admitted to hospital with wounds on the thighs and the abdominal wall, which are healing slowly and she is also having colostomy, which is working fairly good. She has COPD with emphysema with diabetes mellitus and renal failure and also hypochromic anemia. All the multiple medical problems are making her feel weak and she has some difficulty in breathing. According to Dr. Pleitez, she is resolving her chronic COPD condition and is improving. Wound infection is also improving. OBJECTIVE: VITAL SIGNS: Blood pressure is 144/80, pulse 76, respirations 18, temperature 97.7. CHEST: Shows occasional wheezing with some crepitation. HEART: Somewhat irregular. ABDOMEN: Soft, no tenderness. JON HIGUERA MD CM:PNTRANS [phone] JON HIGUERA MD 05/30/18 0959 interface
--- NOTE | ~2018-05-01 | PR ---
[place], [place] PROGRESS NOTE NAME: YOSSI MULLINS UNIT #: [id number] ROOM: [facility] DOCTOR: MAYA CHEUNG MD,NELSON BIRTHDATE: [birth year] DOS: 05/04/2018 SUBJECTIVE: The patient was noted comfortable at this time, more awake and alert, but still requires vasopressor because of the hypertension about 8-9 mcg per kilogram per minute infusion of Levophed was noted because of the hypotension management. She has not been noted any symptoms of chest pain. There were no symptoms of coughing reported by the patient. There were no symptoms of hemoptysis, fever or chills at the present time. She has been given hemodialysis yesterday successfully. Remaining review systems was noted limited and negative. OBJECTIVE: VITAL SIGNS: Blood pressure ranged between 148/75 to 126/50. The heart rate was recorded as 93, respiratory rate of 12, temperature normal. A pulse oxygen saturation of the patient recorded as 95% on 2 liters cannula. HEENT: Examination shows head was atraumatic. Eyes nonicterus. NECK: Supple. CARDIOVASCULAR: S1, S2 is audible. LUNGS: Noted with mild decreased breath sounds in the lungs bilaterally. There were no wheezing or crackles. ABDOMEN: Soft, nontender. EXTREMITIES: Without any new changes at this time. SKIN: No lesions or rashes. MUSCULOSKELETAL: Without acute deformities LABORATORY DATA: Wound culture of the extremities noted all growing with moderate to light growth of gram-negative bacilli, pending identification sensitivities. BMP of patient's BUN 16, creatinine 3.59, glucose 166. Sodium 129. CBC: Hemoglobin 9.5 and hematocrit 1.5. Lactic acid 1.9. IMPRESSION: 1. Hypertension, multifactorial. 2. Wound infection, gram-negative bacilli. There was no evidence of congestive heart failure and/or pneumonia, noted with the current chest x-ray. 3. End-stage renal failure, on hemodialysis as well. PLAN OF MANAGEMENT: Monitor culture results, antibiotic adjusted to that, wound management per surgical services. Any other treatment change was done in the antibiotic after the final culture results availability. We titrate the vasopressor to keep a mean arterial pressure 65 or greater. [place], [place] PROGRESS NOTE NAME: YOSSI MULLINS UNIT #: [id number] ROOM: [facility] DOCTOR: NELSON JENKINS MD BIRTHDATE: [birth year] NELSON TREJO MD CM:PNTRANS [phone] NELSON CHEUNG MD 05/04/18 1419 interface
--- NOTE | ~2018-05-01 | PR ---
[place], [place] PROGRESS NOTE NAME: YOSSI MULLINS UNIT #: [id number] ROOM: 415 DOCTOR: NELSON JENKINS MD BIRTHDATE: [birth year] DOS: 05/06/2018 PULMONARY PROGRESS NOTE SUBJECTIVE: The patient has developed increased coughing, which has been noted nonproductive with expiratory wheezing. She denies symptoms of fever or chills. Remained in the Intensive Care Unit and remains off the vasopressor treatment. Denies any abdominal pain or any chest pain. Denies symptoms of headache, or diplopia. Remaining systems were reviewed and noted limited, but negative. PHYSICAL EXAMINATION: VITAL SIGNS: Normal temperature, respiratory rate 25, heart rate 86, blood pressure 90/46. Pulse oxygen saturation recorded on 2 liters nasal cannula 100% saturation. HEENT: Head was atraumatic. Eyes nonicterus. NECK: Supple. CARDIOVASCULAR: S1, S2 is audible. LUNGS: The patient was noted without any crackles. Expiratory wheezing noted in the lungs bilaterally, moderate, diffuse. ABDOMEN: Soft, nontender. EXTREMITIES: Remains unchanged. CENTRAL NERVOUS SYSTEM: Nonfocal. MUSCULOSKELETAL: Without acute deformities. LABORATORY DATA: BMP this morning, BUN 16, creatinine 3.30. The CBC of the patient this morning, normal WBC count, hemoglobin 8.7, and hematocrit 29.1. IMPRESSION: 1. The patient with acute exacerbation of chronic obstructive pulmonary disease at present time was noted with acute bronchitis. 2. The patient with resolution of the hypotension. 3. Wound infection of the skin. PLAN OF MANAGEMENT: She was started on Solu-Medrol 40 mg daily. Continue bronchodilators every 4 hours and other treatment, as previously, in progress. Titrate oxygen supplementation, maintain pulse ox saturation 92% or greater. Usual care, other supportive plan of therapy, and care plan and management. [place], [place] PROGRESS NOTE NAME: YOSSI MULLINS UNIT #: [id number] ROOM: 415 DOCTOR: NELSON JENKINS MD BIRTHDATE: [birth year] NELSON TREJO MD CM:PNTRANS [phone] NELSON CHEUNG MD 05/07/18 0116 interface
--- NOTE | ~2018-05-01 | PR ---
[place], [place] PROGRESS NOTE [id number] #: [id number] ROOM: 415 DOCTOR: ITA SIMONAUGUST BIRTHDATE: [birth year] DOS: 05/07/2018 SUBJECTIVE: The patient is a 77-year-old female who is being followed for positive wound cultures. She has wounds of her bilateral inguinal areas as well as abdomen. Wound cultures grew Proteus and E. coli. She also had a positive blood culture on 05/01/2018 as a contaminant with Staphylococcus epidermis. The wound cultures were deemed to be colonized. She is having no fevers or chills. No nausea or vomiting. Has good appetite. Liquid stool per colostomy. No rashes. She is minimally verbally responsive and really not willing to give history or going to further depth on her review of systems. LABORATORY DATA: WBC is 11.9, platelets 242. BUN 31, creatinine 4.49. CURRENT MEDICATIONS: Solu-Medrol, Lantus, DuoNebs, ProAmatine, Rocaltrol, Zocor, zinc sulfate, vitamin D, aspirin, albumin, Protonix, Toprol, Aricept, Eliquis, Humalog, Roxicodone. PHYSICAL EXAMINATION: GENERAL: A 77-year-old female, in no acute distress. VITAL SIGNS: Temperature 97.8, pulse 80, respirations 20, BP 110/60. HEENT: Normocephalic. NECK: Supple. No thrush. LUNGS: Clear to auscultation bilaterally. Respirations even and unlabored. HEART: Regular rhythm. No murmur appreciated. ABDOMEN: Soft, nondistended, positive bowel sounds. Ostomy with liquid stool. Abdominal wound has some fibrotic tissue in the base, but there is no odor or cellulitis, bilateral groin wounds, a little fibrotic tissue fairly clean. Little dry, no odor or cellulitis. SKIN: Otherwise, warm, dry, free of rashes. EXTREMITIES: With edema. She has right arm PICC dressing dry and intact. No phlebitis. ASSESSMENT: Colonization of bilateral groin wounds with Proteus and Escherichia coli as well as an abdominal wound. She does not have any sign of infection. The Staphylococcus epidermidis bacteremia as a contaminant. Repeat blood cultures did remain sterile. PLAN: At this point, no antibiotics are warranted and we will see the patient p.r.n. MISHA JEAN BAPTISTE CNP [place], [place] PROGRESS NOTE NAME: YOSSI MULLINS UNIT #: [id number] ROOM: [facility] DOCTOR: ITA SIMON BIRTHDATE: [birth year] Karla Vasquez MD CM:PNTRANS [phone] AUGUST ITA SIMON 05/07/18 1903 interface
--- NOTE | ~2018-05-01 | PR ---
[place], [place] PROGRESS NOTE NAME: YOSSI MULLINS UNIT #: [id number] ROOM: 415 DOCTOR: MAYA CHEUNG MD,NELSON BIRTHDATE: [birth year] DOS: 05/08/2018 PULMONARY PROGRESS NOTE SUBJECTIVE: The patient noted comfortable at this time, resting in the bed at this time. She has not been reported any symptoms of chest pain, nausea or vomiting. Denies symptoms of hemoptysis. The patient was comfortably resting in the bed this morning. OBJECTIVE: VITAL SIGNS: Normal temperature, respiratory rate 18, heart rate 80, blood pressure of 92/50. Pulse oxygen saturation patient recorded as 100% on 3 liters cannula. HEENT: Head was atraumatic. Eyes nonicterus. NECK: Supple. CARDIOVASCULAR: S1, S2 is audible. LUNGS: Clear of any wheezing today. There were no crackles. ABDOMEN: Soft, nontender. Bowel sounds present. EXTREMITIES: The patient was noted without any acute edema, clubbing or cyanosis. Rest of the examination remains unchanged. IMPRESSION: 1. The patient was noted with resolving acute exacerbation of chronic obstructive pulmonary disease, improving acute respiratory failure. 2. History of end-stage renal failure, on hemodialysis. 3. Wound infection. PLAN OF MANAGEMENT: Decrease Solu-Medrol 40 mg daily, total of 4 doses and then discontinue completely. Continue in the meantime bronchodilator. Discharge planning per primary care physician. From pulmonary standpoint, the patient is considered [facility]. NELSON TREJO MD CM:PNTRANS [phone] NELSON CHEUNG MD 05/08/18 1426 interface
--- NOTE | ~2018-05-01 | CON ---
[place], [place] REPORT OF CONSULTATION NAME: YOSSI MULLINS UNIT #: [id number] ROOM: [facility] DOCTOR: BOBBY VELOZ MD BIRTHDATE: [birth year] DOS: 05/02/2018 HISTORY OF PRESENT ILLNESS: This is a 77-year-old -[place] woman with a history of end-stage renal disease, who has been on dialysis for some time and also has dementia. She had lot of vascular workup done in [facility] and also had many surgical procedures done. She had thrombectomy for femoral arterial occlusion and fasciotomy of the thighs and I think also of the lower legs. She has several open wounds now in the abdomen in the groins. She had atrial fibrillation with rapid rate, and I was asked to evaluate. The patient does not have any palpitations. She does not have any chest pain, although she is weak and lethargic and currently underwent hemodialysis. Her blood pressure has been rather low as well with a heart rate in the 160s. She was given bolus of diltiazem, which slowed down the heart rate and was on Levophed to maintain systolic blood pressure. She has a history of atrial fibrillation, cardiomyopathy and has carried a diagnosis of heart failure, also has diabetes mellitus, GERD, chronic anemia, and she has had hysterectomy, appendectomy, laparotomy, cholecystectomy, and small bowel resection, and there is an ileostomy now. HOME MEDICATIONS: Did include apixaban, metoprolol, and pravastatin. PHYSICAL EXAMINATION: GENERAL: This reveals a patient who is awake. She is pale looking, not diaphoretic. There is no thyromegaly. VITAL SIGNS: Pulse is irregular at 96 beats per minute. Systolic blood pressure about 115 now. NECK: JVP is somewhat increased. LUNGS: She has lot of crackles and rhonchi in both lungs and has mild edema. LABORATORY DATA: ECG showed atrial fibrillation with a rate of 118 beats per minute and low voltage. Hemoglobin 9.7 g/dL, potassium is 5.4, sodium 134, BUN 37, creatinine 4.62. Serum albumin 2.1 g/dL. Chest x-ray was read as showing left-sided pleural effusion. IMPRESSION: This patient has atrial fibrillation with rapid ventricular rate. She is anticoagulated and this should be continued. Heart rate is in the 90s now. I think the best thing to do would be to restart her metoprolol 25 mg b.i.d. and dose should be increased if necessary to keep the heart rate in the 70s and 80s. [place], [place] REPORT OF CONSULTATION NAME: YOSSI MULLINS UNIT #: [id number] ROOM: [facility] DOCTOR: ROSELIA BOWDEN,BOBBY BIRTHDATE: [birth year] BOBBY VELOZ MD CM:CONSTR:REPORT OF CONSULTATION 1654 05/31/18 1005 interface
[~2018-05-01 21:15] MED LIST changes: +PULMICORT RES0.25 M1 INH; -PULMICORT RESP0.5 M1 INH
[2018-05-01 21:41] LABS: BASO # 0.1 10*3/uL (0.0-0.1); BASO % 0.7 % (0.0-1.0); EOS % 0.5 % (1.0-4.0); HEMATOCRIT 34.7 % (37.0-47.0); HEMOGLOBIN 10.2 g/dl (12.0-16.0); LYMPH # 1.2 10*3/uL (1.3-4.4); LYMPH % 13.6 % (27.0-41.0); MEAN CELL VOLUME 104.5 fl (81.0-99.0); MEAN CORPUSCULAR HGB 30.7 pg (27.0-31.0); MEAN CORPUSCULAR HGB CONC 29.4 g/dl (33.0-37.0); MEAN PLATELET VOLUME 10.6 fl (9.6-12.3); MONO # 0.6 10*3/uL (0.1-1.0); MONO % 7.2 % (3.0-9.0); NEUT # 6.6 10*3/uL (2.3-7.9); NEUT % 77.5 % (47.0-73.0); PLATELET COUNT AUTOMATED 251 10*3/uL (130-400); RED BLOOD COUNT 3.32 10*6/uL (4.10-5.10); RED CELL DISTRI WIDTH 17.8 % (0-14.5); WHITE BLOOD COUNT 8.5 10*3/uL (4.8-10.8)
--- NOTE | 2018-05-01 21:44 | NUR ---
CRITICAL LAB, [place] 2.3
[2018-05-01 21:50] LABS: INTERNATIONAL NORM RATIO 0.9 (2.0-3.5)
[2018-05-01 21:58] LABS: ALBUMIN 2.2 gm/dl (3.1-4.5); CREATININE 4.15 mg/dL (0.55-1.02); POTASSIUM 4.5 mmol/L (3.5-5.1); TROPONIN I 0.029 ng/ml (<0.045)
--- NOTE | 2018-05-01 22:18 | NUR ---
CHANGED SETTINGS FROM 04/21 TO 28/12 PT NEEDED MORE IMP PRESSURE
[2018-05-01 22:29] VITALS: BP 76/32
[2018-05-01 22:31] VITALS: BP 74/34
--- NOTE | 2018-05-01 22:31 | NUR ---
DR PRINGLE AWARE OF PATIENT BLOOD PRESSURE AT THIS TIME.
[2018-05-01 23:10] VITALS: BP 84/35
[2018-05-01 23:40] LABS: BILIRUBIN NEGATIVE (NEGATIVE); BLOOD 3+ (NEGATIVE); CLARITY TURBID (CLEAR); COLOR BROWN (YELLOW); GLUCOSE NEGATIVE (NEGATIVE); KETONE NEGATIVE (NEGATIVE); LEUKO ESTERASE 2+ (NEGATIVE); NITRITE NEGATIVE (NEGATIVE); UROBILINOGEN 0.2 E.U./dl (0.2-1.0)
--- NOTE | 2018-05-01 23:40 | NUR ---
WOUNDS: DR PRINGLE STAGED WOUNDS #1 RIGHT ANTERIOR MCCLOUD - SURGICAL HEALING #2 LEFT ANTERIOR MCCLOUD - SURGICAL HEALING #3 RIGHT ANTERIOR THIGH - SURGICAL #4 LEFT GROIN - UNSTAGABLE #5 RIGHT GROIN - UNSTAGABLE #6 RIGHT ANTERIOR FOREARM - SKIN TEAR HEALING #7 COCCYX - STAGE 1 PRESSURE ULCER BLANCHABLE #8 STOMA - UNSTAGABLE #9 LEFT ABDOMEN - UNSTAGABLE
[2018-05-01 23:55] LABS: BACTERIA 4+; RBC TNTC rbc/hpf (0-2); WBC TNTC wbc/hpf (0-5)
[2018-05-02] VITALS (84 sets, daily range): BP systolic 82–166; BP diastolic 27–514
--- NOTE | 2018-05-02 00:35 | NUR ---
A 77, admitted to , under the services of JING Samuels MD with a diagnosis of CHF, AFIB WITH RVR, HOSPITAL ACQUIRED PNEUMONIA, RENAL FAILURE. Chief complaint is SHORTNESS OF BREATH. Patient arrived via bed from ER. Monitor applied. Initial assessment completed. Vital signs taken and recorded. JING SAMUELS MD notified of admission to the unit. Orders received. See assessment for past medical history, medications and allergies. Patient and/or family oriented to unit. [facility] visitation policy reviewed. Clothing/patient valuable form completed. SUSHANT OLIVER
--- NOTE | 2018-05-02 00:45 | NUR ---
ASSESSMENT COMPLETE. WOUND MEASUREMENTS TAKEN. PATIENT EXTREMELY SHORT OF BREATH AT THIS TIME. PATIENT ON NON-REBREATHER MASK AT 10 L OXYGEN. PATIENT 02 SAT 98% AT THIS TIME. HEART MONITOR PLACED ON PATIENT. PATIENT A-FIB ON THE MONITOR. HEART RATE 100'S AT THIS TIME PER PAY STATION DEPARTMENT MANAGER. PATIENT HAS FISTULA IN LEFT UPPER ARM. + BRUIT AND THRILL. PATIENT COMPLAINING OF NOT BEING ABLE TO BREATH AT THIS TIME. REPOSITIONED FOR COMFORT. HEAD OF BED ELEVATED.
[2018-05-02] MEDS ORDERED: TYLENOL325 M1 PO (01:15)
[2018-05-02] MEDS ORDERED: ELIQUIS2.5 M1 PO (01:17)
[2018-05-02] MEDS ORDERED: HUMALOG100 UNIT/2 SQ (01:19)
[2018-05-02] MEDS ORDERED: METOPROLOL SUCC25 M2 PO (01:24)
[2018-05-02] MEDS ORDERED: MULTIPLE VITAM1 EAC1 PO (01:25)
--- NOTE | 2018-05-02 01:25 | NUR ---
SPOKE WITH PATIENT. PATIENT WISHING TO BE A FULL CODE. EXPLAINED TO PATIENT WHAT A FULL CODE MEANS. PATIENT STATES SHE WANTS EVERYTHING DONE.
[2018-05-02] MEDS ORDERED: GLUCAGON EMERGEN1 M1 IM (01:26)
[2018-05-02] MEDS ORDERED: OXYCODONE HYDROC5 MG PO (01:28)
[2018-05-02] MEDS ORDERED: VITAMIN C500 M4 PO (01:29)
[2018-05-02] MEDS ORDERED: ZINC-220220 MG PO (01:30)
--- NOTE | 2018-05-02 01:34 | NUR ---
SPOKE WITH DR. LONDON AT THIS TIME. MADE DR. LONDON AWARE THAT PATIENT STATED SHE WANTS TO BE A FULL CODE. ORDERED TO SEND PATIENT TO THE ICU. NURSING RN NURSERY AWARE THAT PATIENT NEEDS TO GO TO ICU.
--- NOTE | 2018-05-02 01:58 | NUR ---
MED REC UP TO DATE WITH PAPERS FROM [facility] AT THIS TIME.
--- NOTE | 2018-05-02 01:58 | NUR ---
RESPIRATORY IN WITH PATIENT AT THIS TIME. PATIENT PLACED ON BIPAP.
--- NOTE | 2018-05-02 02:10 | NUR ---
PATIENT TRANSFERRED TO ICU PER DR. HUITRON. REPORT GIVEN TO RECIEVING RN. ALL BELONGINGS WITH PATIENT AT THIS TIME.
--- NOTE | 2018-05-02 02:25 | NUR ---
DR LABOY NOTIFIED OF CONSULT AND ORDER TO CALL DR VELOZ AT 0600.
--- NOTE | 2018-05-02 02:40 | NUR ---
DR LONDON CALLED FOR ADMISSION ORDERS. INFORMED OF PT BP 88/41 WITH MAP OF 49 AND ORDER FOR LEVOPHED. ORDERS TO CONSULT DR VELOZ, DR TREJO, DR MANCILLA, AND TO CALL DR EARL IN AM.
--- NOTE | 2018-05-02 02:55 | NUR ---
DR MCLEOD NOTIFIED OF CONSULT AND ORDER TO CALL DIALYSIS NURSE IN AM FOR DIALYSIS.
[2018-05-02 03:13] LABS: ABG BASE EXCESS 4.1 mmol/L (-2.0-2.0); ABG HCO3 29.4 mmol/l (22-26); ABG O2 SATURATION 48.4 % (95-97); ARTERIAL BLOOD GAS PCO2 49.9 mmHg (35-45); ARTERIAL BLOOD GAS PH 7.387 (7.35-7.45)
[2018-05-02 03:18] LABS: ARTERIAL BLOOD GAS PO2 25.8 mmHg (80-90)
[2018-05-02 03:24] LABS: ABG BASE EXCESS 3.8 mmol/L (-2.0-2.0); ABG HCO3 27.1 mmol/l (22-26); ABG O2 SATURATION 95.2 % (95-97); ARTERIAL BLOOD GAS PH 7.477 (7.35-7.45); ARTERIAL BLOOD GAS PO2 67.6 mmHg (80-90)
--- NOTE | 2018-05-02 06:12 | NUR ---
DR VELOZ AND DR EARL NOTIFIED OF CONSULTS.
--- NOTE | 2018-05-02 06:48 | NUR ---
DIALYSIS NURSE NOTIFIED OF CONSULT AND ORDER FROM DR MCLEOD FOR DIALYSIS TODAY.
[2018-05-02 07:37] LABS: BASO # 0.1 10*3/uL (0.0-0.1); BASO % 0.5 % (0.0-1.0); EOS % 0.1 % (1.0-4.0); HEMATOCRIT 32.6 % (37.0-47.0); HEMOGLOBIN 9.7 g/dl (12.0-16.0); LYMPH # 1.1 10*3/uL (1.3-4.4); LYMPH % 11.9 % (27.0-41.0); MEAN CELL VOLUME 101.9 fl (81.0-99.0); MEAN CORPUSCULAR HGB 30.3 pg (27.0-31.0); MEAN CORPUSCULAR HGB CONC 29.8 g/dl (33.0-37.0); MEAN PLATELET VOLUME 10.9 fl (9.6-12.3); MONO # 0.6 10*3/uL (0.1-1.0); MONO % 6.5 % (3.0-9.0); NEUT # 7.7 10*3/uL (2.3-7.9); NEUT % 80.6 % (47.0-73.0); PLATELET COUNT AUTOMATED 236 10*3/uL (130-400); RED CELL DISTRI WIDTH 17.7 % (0-14.5); WHITE BLOOD COUNT 9.5 10*3/uL (4.8-10.8)
--- NOTE | 2018-05-02 08:00 | NUR ---
PT AWAKE AND ALERT. PT REMAINS ON LEVOPHED GTT. BP 116/46. POX 100% ON 3L NC. SCATTERED RHONCHI AND WHEEZING NOTED IN LUNG NAIR. ABD. SOFT WITH ACTIVE BOWEL SOUNDS. OSTOMY SITE ASYMP. OSTOMY INTACT. MULTIPLE SURGICAL WOUNDS NOTED TO ABD., BOTH YANI AND LEGS.
[2018-05-02 08:06] LABS: ALBUMIN 2.1 gm/dl (3.1-4.5); CREATININE 4.62 mg/dL (0.55-1.02); POTASSIUM 5.4 mmol/L (3.5-5.1); TOTAL PROTEIN 5.6 gm/dL (6.4-8.2)
[2018-05-02 08:13] LABS: THYROID STIM HORMONE (HS) 1.88 uIU/ml (0.358-4.75)
--- NOTE | 2018-05-02 08:30 | NUR ---
Hospital Account Liaison in to see patient. She is resting with her eyes closed. Resps even and unlabored. Will follow up at a later time.
--- NOTE | 2018-05-02 09:14 | NUR ---
YOSSI MULLINS [id number] Please refer to the physician's history and physical for past medical history, comorbid conditions, and allergies. Diagnosis: CHF,HOSPITAL ACQUIRED PNA,RENAL FAILURE,ATRIAL Chance Score: 14,MODERATE RISK WOUND DESCRIPTIONS: Location of the wound: right lateral griffiths Type of wound: surgical Thickness: Full Size: 2.3cm x 0.7cm x <0.1cm Tunneling: none Undermining: none Sinus Tract: none Presence of Exudate: none Amount: None Color: Brown, yellow Odor: None Periwound Skin Appearance: Normal Wound edges: approximated intact scab noted Pain (associated with wound): none at time of assessment How does patient state this happened? pt stated she had surgery Location of the wound: left groin Type of wound: surgical Thickness: Full Size: 8.0cm x 4.0cm x 0.4cm Tunneling: none Undermining: none Sinus Tract: none Presence of Exudate: Purulent Amount: Moderate Color: Yellow, pink, brown Odor: Foul Periwound Skin Appearance: Erythema Wound edges: approximated 3 sutures intact Pain (associated with wound): tender to touch How does patient state this happened? pt stated had surgery Location of the wound: right groin Type of wound: surgical Thickness: Full Size: 29.0cm x 13.0cm x 3.0cm Tunneling: none Underminin o'clock 0.8cm Sinus Tract: none Presence of Exudate: Purulent Amount: Moderate Color: Yellow, red, brown Odor: Foul Periwound Skin Appearance: Erythema Wound edges: approximated 17 sutures intact distally 1 staple at proximal incision. Pain (associated with wound): tender to touch How does patient state this happened? pt stated she had surgery Location of the wound: right forearm Type of wound: skin tear Thickness: Partial Size: 6.5cm x 3.5cm x 0.1cm Tunneling: none Undermining: none Sinus Tract: none Presence of Exudate: Serous Amount: Light Color: Red Odor: None Periwound Skin Appearance: Normal Wound edges: approximated Pain (associated with wound): none at time of assessment How does patient state this happened? pt is unsure how this happened Location of the wound: left buttocks Type of wound: stage 2 Thickness: Partial Size: 0.2cm x 0.2cm x 0.1cm Tunneling: none Undermining: none Sinus Tract: none Presence of Exudate: Serous Amount: Light Color: Red Odor: None Periwound Skin Appearance: erythema Wound edges: approximated Pain (associated with wound): none at time of assessment How does patient state this happened? none at time of assessment Location of the wound: abdomen Type of wound: surgical Thickness: Full Size: 18.5cm x 4.0cm x 2.1cm Tunneling: none Undermining: none Sinus Tract: none Presence of Exudate: Purulent Amount: Moderate Color: Yellow, pink Odor: Foul Periwound Skin Appearance: Erythema Wound edges: approximated Pain (associated with wound): tender to touch How does patient state this happened? pt stated she had surgery Bilateral feet dry, scaly, flaky red and blanchable. No open areas noted. No drainage noted at time of assessment. Left medial lower extremity, left lateral lower extremity, right medial lower extremity healing surgical incision noted with several intact scabs noted. 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 Surface the patient is resting on: Postion Pro SKIN PREVENTION RECOMMENDATION: 1. Pressure redistribution support surface as appropriate 2. Elevate heels 3. Remove boots/TEDS every shift and reapply 4. Head of bed 30 degrees as tolerated 5. Assess nutrition and hydration 6. Manage moisture 7. Avoid the use of containment devices while in bed 8. Use absorptive products on surfaces limit layers of linens on bed 9. Turn and reposition every 1-2 hours in bed and every 1 hour in chair as tolerated 10. Weight shifts every 15 minutes while up in chair 11. Offloading with pillows or device to keep heels elevated off bed 12. Monitor skin at least every shift 13. Inspect under medical devices twice a day WOUND TREATMENT RECOMMENDATIONS: Consult Dr. Jeronimo for possible debridement or left groin, right groin, abdomen surgical incision and wound care orders. Wheelchair cushion when oob. Heel raiser pro boots while in bed. Cleanse mucous plug fistula with nss and apply non-adherent dressing daily and prn for soiling. Skin tear guidelines: cleanse right forearm with nss and apply sureprep around the wound hydrogel to wound bed and cover with optifoam gentle. Stage 2 guidelines: Cleanse left buttocks with nss and apply sureprep around the wound hydrogel to wound bed and cover with optifoam gentle. Full thickness guidelines: Cleanse right lateral griffiths with nss and apply sureprep around the wounds therahoney to wound bed and cover with optifoam gentle. Recommend follow wound care in outpatient setting. Patient came from [facility] and follow with DRILL SERGEANT there.
--- NOTE | 2018-05-02 09:14 | NUR ---
SPEECH PATHOLOGY Nursing screen completed. Speech pathology services are not indicated at this time however this dept. will remain available should future needs arise. LOY KERN MS CCC-PARKING ATTENDANT
--- NOTE | 2018-05-02 10:02 | NUR ---
At bedside with Dr. Jeronimo while procedures were completed to left groin, right groin and abdomens. Pre and post photographs taken per policy.
--- NOTE | 2018-05-02 11:17 | NUR ---
patient is short term care at [facility] and will require a precert to return. Orders will be needed for PT and OT when patient can appropriately participate.
--- NOTE | 2018-05-02 12:03 | NUR ---
PT'S CODE STATUS VERIFED WITH PT AND PT'S SON AND SERGIO. PT TO BE A DNRCC ARREST WITH NO INTUBATION. DR MANNING UPDATED NAD SIGNED DNRCCA PAPERWORK. WILL BAND PT.
--- NOTE | 2018-05-02 13:21 | NUR ---
DURING DIALYSIS PATIENT HAD A BURST OF A-FIB W/ PVC'S RATE 160'S & FEELING SOB. PATIENT ENCOURAGED TO TAKE DEEP BREATH & COUGH BY NURSE & PATIENT DID, DEEP MOIST COUGH AND HEART RATE DROPPED TO 110'S
--- NOTE | 2018-05-02 14:09 | NUR ---
DIALYSIS CONTINUES. HR INCREASED TO 160 AFIB BUT DECREASED BACK TO LOW 100'S WITHOUT TREATMENT.
--- NOTE | 2018-05-02 14:45 | NUR ---
DIALYSIS COMPLETED. PT TOLERATED PROCEDURE WELL.
--- NOTE | 2018-05-02 17:11 | NUR ---
MEDICATED PT PER PRN ORDER WITH OXY IR 5MG FOR C/O PAIN ALL OVER..."SOME SHARP...SOME DULL....SOME NEW SOME OLD."
--- NOTE | 2018-05-02 17:41 | NUR ---
PT STATES PAIN LEVEL IS NOW 8/10 ON PAIN SCALE. PT'S SON IS IN TO VISIT.
[2018-05-03] VITALS (71 sets, daily range): BP systolic 89–124; BP diastolic 32–80
--- NOTE | 2018-05-03 05:47 | NUR ---
PATIENT C/O GENERALIZED PAIN. MEDICATED WITH OXY IR PER PRN ORDER. WILL CONTINUE TO MONITOR.
[2018-05-03 06:40] LABS: BASO # 0.1 10*3/uL (0.0-0.1); BASO % 0.7 % (0.0-1.0); EOS # 0.2 10*3/uL (0.0-0.4); EOS % 2.6 % (1.0-4.0); HEMATOCRIT 32.3 % (37.0-47.0); HEMOGLOBIN 9.7 g/dl (12.0-16.0); LYMPH # 1.4 10*3/uL (1.3-4.4); LYMPH % 16.8 % (27.0-41.0); MEAN CELL VOLUME 100.6 fl (81.0-99.0); MEAN CORPUSCULAR HGB 30.2 pg (27.0-31.0); MEAN PLATELET VOLUME 10.8 fl (9.6-12.3); MONO # 0.7 10*3/uL (0.1-1.0); MONO % 8.4 % (3.0-9.0); NEUT # 5.9 10*3/uL (2.3-7.9); NEUT % 71.1 % (47.0-73.0); PLATELET COUNT AUTOMATED 198 10*3/uL (130-400); RED BLOOD COUNT 3.21 10*6/uL (4.10-5.10); RED CELL DISTRI WIDTH 17.3 % (0-14.5); WHITE BLOOD COUNT 8.2 10*3/uL (4.8-10.8)
[2018-05-03 07:01] LABS: ALBUMIN 1.8 gm/dl (3.1-4.5); CREATININE 3.37 mg/dL (0.55-1.02); PHOSPHOROUS 1.6 mg/dL (2.5-4.9); POTASSIUM 4.5 mmol/L (3.5-5.1); TOTAL PROTEIN 5.3 gm/dL (6.4-8.2)
--- NOTE | 2018-05-03 08:15 | NUR ---
TITRATED IV LEVOPHED GTT UP TO 5MCG/MIN DUE TO DROP IN BP INTO 80'S AFTER DIALYSIS STARTED. DR CHIU AND DR TREJO IN TO SEE PT EARLIER.
--- NOTE | 2018-05-03 09:00 | NUR ---
Event Specialist in to see patient. She is currently receiving dialysis at the bedside. She is short term at [facility] and is unsure of her discharge plan at the moment. tool and production planner following.
--- NOTE | 2018-05-03 09:46 | NUR ---
DR LONDON IN TO SEE PT. UPDATED HIM ON PT'S PLAN OF CARE.
--- NOTE | 2018-05-03 10:34 | NUR ---
MEDICATED PT PER ONE TIME ORDER WITH IV DILAUDID FOR PT'S C/O BACK PAIN THAT RATES 10/10 ON PAIN SCALE.
--- NOTE | 2018-05-03 10:48 | NUR ---
PT RESTING. EARLIER DILAUDID EFFECTIVE. DR DAVIS NOTIFIED THAT PT WILL NEED A LINE FOR IV ACCESS SOON DUE TO PREVIOUS IV SITES STARTING TO HURT.
--- NOTE | 2018-05-03 16:20 | NUR ---
DR DAVIS AND DR RAM SPOKE WITH PT REGARDING CENTRAL INE INSERTION. PT STATED HER SON MARTIN MAKES THOSE DECISIONS FOR HER. DR RAM SPOKE WITH PT'S SON ON THE PHONE AND HE AREED FOR IV LINE.
--- NOTE | 2018-05-03 17:06 | NUR ---
IV DILAUDID GIVEN PER ONE TIME ORDER FOR PT'S C.O PAIN.
--- NOTE | 2018-05-03 17:27 | NUR ---
PT RESTING. EARLIER DILAUDID EFFECTIVE. DR DAVIS AND LEANNA ATTEMPTING CENTRAL LINE AFTER INFORMED CONSENT RECEIVED FROM PT'S SON.
--- NOTE | 2018-05-03 17:40 | NUR ---
PT UNABLE TO TOLERATE CENTRAL LINE INSERTION. DR DAVIS SPOKE WITH DR MANCILLA R/T PICC LINE INSERTION. DR DAVIS TO PLACE PICC OR MIDLINE IN RIGHT ARM.
[2018-05-04] VITALS (51 sets, daily range): BP systolic 77–160; BP diastolic 0–126
--- NOTE | 2018-05-04 01:16 | NUR ---
PT. NOT USING BIPAP AT THIS TIME.
[2018-05-04 05:59] LABS: BASO # 0.1 10*3/uL (0.0-0.1); BASO % 0.6 % (0.0-1.0); EOS # 0.4 10*3/uL (0.0-0.4); EOS % 4.3 % (1.0-4.0); HEMATOCRIT 31.5 % (37.0-47.0); HEMOGLOBIN 9.5 g/dl (12.0-16.0); LYMPH % 10.2 % (27.0-41.0); MEAN CELL VOLUME 102.3 fl (81.0-99.0); MEAN CORPUSCULAR HGB 30.8 pg (27.0-31.0); MEAN CORPUSCULAR HGB CONC 30.2 g/dl (33.0-37.0); MEAN PLATELET VOLUME 10.8 fl (9.6-12.3); MONO # 0.5 10*3/uL (0.1-1.0); MONO % 5.6 % (3.0-9.0); NEUT # 7.4 10*3/uL (2.3-7.9); NEUT % 78.8 % (47.0-73.0); PLATELET COUNT AUTOMATED 227 10*3/uL (130-400); RED BLOOD COUNT 3.08 10*6/uL (4.10-5.10); RED CELL DISTRI WIDTH 17.3 % (0-14.5); WHITE BLOOD COUNT 9.4 10*3/uL (4.8-10.8)
[2018-05-04 06:06] LABS: CREATININE 3.59 mg/dL (0.55-1.02); POTASSIUM 4.2 mmol/L (3.5-5.1)
--- NOTE | 2018-05-04 09:01 | NUR ---
Patient comes from [facility]. She requires a precert to return. Will need orders for PT and OT when patient is appropriate to participate.
--- NOTE | 2018-05-04 10:57 | NUR ---
Patient not available for Occupational Therapy at this time. Nursing recommended recheck this pm. Makayla Le OTR/L
--- NOTE | 2018-05-04 13:55 | NUR ---
Occupational Therapy offered, however patient reports that she is not feeling well but agrees to OT in the am. OTR explained that both a PT and OT evaluation will be necessary for insurance precert to ascertain if she qualifies for SNF. Patient reports she understands. Makayla Le OTR/
--- NOTE | 2018-05-04 16:22 | NUR ---
Dr. Ferraro in . Update given.
--- NOTE | 2018-05-04 18:57 | NUR ---
PHYSICAL THERAPY PT EVAL COMPLETED TODAY IN ICCU: FULL EVALUATION TO FOLLOW. RECOMMEND PT WHILE HERE AND SNF ON D/C DUE TO DECREASED STRENGTH, ENDURANCE, BALANCE AND THUS FUNCTIONAL MOBILITY INCLUDING BED MOBS, TRANSFERS AND GAIT. PT EVAL IS HIGH COMPLEXITY BASED ON CHART REVIEW, TEST RESULTS AND EVALUATION : [id number]. D/C RECOMMENDATIONS ARE SNF. THANK YOU FOR REFERRAL TEMITOPE OSEGUERA PT
[2018-05-05] VITALS: BP 98/50
[2018-05-05 04:00] VITALS: BP 119/54
[2018-05-05 05:59] LABS: BASO % 0.2 % (0.0-1.0); EOS # 0.4 10*3/uL (0.0-0.4); EOS % 4.7 % (1.0-4.0); HEMATOCRIT 28.6 % (37.0-47.0); HEMOGLOBIN 8.4 g/dl (12.0-16.0); LYMPH # 0.8 10*3/uL (1.3-4.4); LYMPH % 10.1 % (27.0-41.0); MEAN CELL VOLUME 101.1 fl (81.0-99.0); MEAN CORPUSCULAR HGB 29.7 pg (27.0-31.0); MEAN CORPUSCULAR HGB CONC 29.4 g/dl (33.0-37.0); MEAN PLATELET VOLUME 10.7 fl (9.6-12.3); MONO # 0.4 10*3/uL (0.1-1.0); MONO % 5.2 % (3.0-9.0); NEUT # 6.4 10*3/uL (2.3-7.9); NEUT % 79.3 % (47.0-73.0); PLATELET COUNT AUTOMATED 196 10*3/uL (130-400); RED BLOOD COUNT 2.83 10*6/uL (4.10-5.10); RED CELL DISTRI WIDTH 17.1 % (0-14.5)
[2018-05-05 06:21] LABS: CREATININE 4.55 mg/dL (0.55-1.02); PHOSPHOROUS 1.8 mg/dL (2.5-4.9)
[2018-05-05 06:24] LABS: POTASSIUM 5.4 mmol/L (3.5-5.1)
[2018-05-05 08:00] VITALS: BP 91/42
--- NOTE | 2018-05-05 08:37 | NUR ---
Occupational Therapy attempted this am. Patient repeating "I can't breathe" and panting, with O2 level 89-92% Nurse informed and reported that patient has been repeating that today. Nurse reports dialysis to begin soon and will be for 4 hrs. OTR to attempt eval after dialysis. Makayla Le OTR/alma
--- NOTE | 2018-05-05 08:58 | NUR ---
Awake and alert. While awake repeates over and over. " I cant breathe" SAT 98% Rhonchi and wheezes throughout. Dr. Barrientos called in and orders were recieved. DCI TIFFANY Stevenson arrived for dialysis rx today. Thrill and bruit present to STEPHANIE,
--- NOTE | 2018-05-05 09:00 | NUR ---
Certified Surgical Tech/First Assistant in to see patient. No new needs or request at this time. She is currently receiving dialysis. When medically stable and precert is obtained she will be discharged to [facility]. environmental restoration planner following.
--- NOTE | 2018-05-05 09:14 | NUR ---
PHYSICAL THERAPY PATIENT IS RECIEVING DIALYSIS AT THIS TIME. WILL CHECK BACK WITH PATIENT LATER. BLOSSOM MARINO CMS EXPERT
--- NOTE | 2018-05-05 11:35 | NUR ---
Dr. Wilson's office was notified of consult. Dialysis continues.
[2018-05-05 12:00] VITALS: BP 111/53
--- NOTE | 2018-05-05 14:03 | NUR ---
Awaiting Dr. 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 Therapy in for tx. Dialysis complete , tolerated well.
--- NOTE | 2018-05-05 14:18 | NUR ---
Occupational Therapy evaluation completed in ICCU with full eval to follow. PRecautions include O2, dialysis,IV UE,fall risk, +2 assist for any mobility, max a ADLS, isolation for ESBL urine. Patient was high complexity level 82188 via chart review, testing and evaluation. Recomemnd OT per POC and SNF to enable max ability to function. Thank you for this referral. Makayla Le OTR/l
--- NOTE | 2018-05-05 14:20 | NUR ---
PHYSICAL THERAPY Patient presented to therapy in supine in ICCU-1 with head of bed elevated. Patient is in isolation for wound infection. Patient agrees to therapy session. Patient was identified by name and . Patient is on 3 liters of spO2 via nasal canula. Patient rolled to L side with MAX A X 2. Patient side- lying to sitting at EOB with MAX X 2. Patient sat at EOB with CGA X 2. pATIENT C/O SOB
[2018-05-05 16:00] VITALS: BP 99/52
--- NOTE | 2018-05-05 17:17 | NUR ---
dR. Rollins IN TO [facility] . ASSESSED WOUNDS. and discussed care w/ Dr. Baron . Orders were recieved. Abdominal and bilateral groin dressings were changed. Pt. continues to frequently state, " I cant breathe" . repositioned for comfort and dinner ordered.
[2018-05-05 20:00] VITALS: BP 102/71
--- NOTE | 2018-05-05 22:20 | NUR ---
PT BS 57. PT ASYMPTOMATIC. SKIN WARM AND DRY, ALERT & ORIENTED, PEANUT BUTTER WTIH MIKE CRACKERS AND ORANGE JUICE GIVEN, BS RETAKEN AND IS NOW 83. DR LE NOTIFIED.
[2018-05-06] VITALS: BP 113/43
[2018-05-06 04:00] VITALS: BP 90/46
[2018-05-06 05:59] LABS: BASO # 0.1 10*3/uL (0.0-0.1); BASO % 0.7 % (0.0-1.0); EOS # 0.2 10*3/uL (0.0-0.4); EOS % 3.3 % (1.0-4.0); HEMATOCRIT 29.1 % (37.0-47.0); HEMOGLOBIN 8.7 g/dl (12.0-16.0); LYMPH # 0.9 10*3/uL (1.3-4.4); MEAN CELL VOLUME 101.7 fl (81.0-99.0); MEAN CORPUSCULAR HGB 30.4 pg (27.0-31.0); MEAN CORPUSCULAR HGB CONC 29.9 g/dl (33.0-37.0); MEAN PLATELET VOLUME 10.7 fl (9.6-12.3); MONO # 0.4 10*3/uL (0.1-1.0); MONO % 6.1 % (3.0-9.0); NEUT # 5.6 10*3/uL (2.3-7.9); NEUT % 77.5 % (47.0-73.0); PLATELET COUNT AUTOMATED 216 10*3/uL (130-400); RED BLOOD COUNT 2.86 10*6/uL (4.10-5.10); RED CELL DISTRI WIDTH 17.4 % (0-14.5); WHITE BLOOD COUNT 7.3 10*3/uL (4.8-10.8)
[2018-05-06 06:03] LABS: CREATININE 3.3 mg/dL (0.55-1.02); PHOSPHOROUS 2.2 mg/dL (2.5-4.9); POTASSIUM 4.7 mmol/L (3.5-5.1)
[2018-05-06 08:00] VITALS: BP 112/50
--- NOTE | 2018-05-06 09:00 | NUR ---
Test Lead in to see patient. No new needs or request at this time. She is currently receiving dialysis. When medically stable and precert is obtained she will be discharged to [facility]. tool planner following.
--- NOTE | 2018-05-06 09:19 | NUR ---
PHYSICAL THERAPY Patient presented to therapy in supine with head of bed elevated om 3 liters of spO2. Patient has report of fatigue. Patient agrees to therapy session. Patient was identified by name and . Patient transferred supine to sitting at EOB with MAX A X 1. Patient demonstrates anxiety about SOB. Patient's O2 SAT is at 98% prior to supine to sit transfer. Patient sat at EOB with SBA with verbal cues for diaphramatic breathing and relaxing. Patient's O2 SAT was at 83% ,but with controlled breathing the O2 SAT increases to 98% - 100%. Patient attempted STS transfer to W/W with MOD A X 2 and when placing wt. on the bilateral LEs she had increased calve pain, which caused her to have to sit on EOB. Patient attempted 2nd STS with same result due to the calve pain. Patient's RN notified of the bilateral calve pain upon standing. Patient requested to lie back down and to NOT sit in beside chair this AM. Patient was transferred back to supine in bed with MAX A X 2. Patient was left in supine with head of bed elevated, call light within reach, and attached to wall outlet with 3 liters of spO2. Patient was 1:1 with this RISK CONTROL REPRESENTATIVE for 20 minutes. Patient recommmended to SNF. BLOSSOM MARINO RISK CONTROL REPRESENTATIVE
--- NOTE | 2018-05-06 09:20 | NUR ---
OT NOTE Pt was seen this A.M. 1:1 for 20 minute OT session. Upon arrival pt was supine in bed, pt identified by name and . Pt had reports of fatigue and generalized weakness. Pt presented to therapy with continous 3L-O2 via NC which she remained on throughout entire session. Pt transferred supine to sit EOB with maxA X 1. While sitting EOB pt completed grooming task consisting of washing her face, pt required maxA for set up of task and was then able to complete with SBA. Throughout grooming task pt was educated to slow down due to being impulsive and increasing her anxiety about becoming SOB, pt's SpO2 dropped into the 80's and recovered with verbal pormpts for deep breathing after aprox 25 seconds into the 90's. Sit to stand completed from bed level with modA X 2 and use of w/w for UE support, however pt was complaining of increased leg pain when standing. Pt transferred sit to supine with maxA X 2. There she was left with call light in hand, tray table in place, and ICCU nurse notified. Continue with rec D/C plan to SNF. CORY Chand/Tiki
[2018-05-06 12:00] VITALS: BP 104/45
--- NOTE | 2018-05-06 12:43 | NUR ---
Spoke to patient's son, Danielito, at [phone] regarding possibility of an LTAC. He would like to discuss with her [id number]. CM will contact son back on Wednesday unless he returns call later today.
--- NOTE | 2018-05-06 13:00 | NUR ---
DR EARL IN TO SEE PT. HE DECIDED NOT TO DEBRIDE PT'S WOUNDS TODAY. DR EARL STATED HE MAY DO A BEDSIDE DEBRIDEMENT OVER THE WEEKEND OR ON WEDNESDAY.
--- NOTE | 2018-05-06 13:36 | NUR ---
Spoke to patient regarding LTAC. Answered her questions to the best of my knowledge and explained what an LTAC was. She would like to speak with her son and let CM know.
--- NOTE | 2018-05-06 13:51 | NUR ---
DR MANCILLA UPDATED ON PT'S CONDITION AND PLAN OF CARE. NO NEW ORDERS RECEIVED AT THIS TIME.
--- NOTE | 2018-05-06 14:12 | NUR ---
DR LONDON IN TO SEE PT EARLIER. UPDATED HIM ON PT'S CONDITION AND PLAN OF CARE.
[2018-05-06 15:01] LABS: HEMATOCRIT 31.1 % (37.0-47.0); HEMOGLOBIN 9.3 g/dl (12.0-16.0); MEAN CORPUSCULAR HGB 30.8 pg (27.0-31.0); MEAN CORPUSCULAR HGB CONC 29.9 g/dl (33.0-37.0); MEAN PLATELET VOLUME 10.8 fl (9.6-12.3); PLATELET COUNT AUTOMATED 245 10*3/uL (130-400); RED BLOOD COUNT 3.02 10*6/uL (4.10-5.10); RED CELL DISTRI WIDTH 17.6 % (0-14.5)
[2018-05-06 15:49] LABS: PLATELET SUFFICIENCY NORMAL (NORMAL); TOTAL CELLS COUNTED 100 #CELLS
[2018-05-06 16:00] VITALS: BP 113/54
--- NOTE | 2018-05-06 18:29 | NUR ---
DR DAVIS NOTIFIED OF NEW SKIN IMPAIRMENT. ORDERS RECEIVED.
[2018-05-06 20:00] VITALS: BP 117/86
--- NOTE | 2018-05-06 20:00 | NUR ---
RESTING IN BED WITH HOB SLIGHTLY ELEVATED. 02 INTACT AT 2LPM VIA NASAL CANNULA. LUNGS WITH EXPIRATORY WHEEZES & A MOIST COUGH NOTED. PULSE OX 100% ON 02. COLOSTOMY BAG INTACT & PATENT FOR DARK BROWN LIQUID BM. PT. VOICES NO C/O AT THIS TIME. CALL LIGHT WITHIN REACH.
--- NOTE | 2018-05-06 22:00 | NUR ---
BLOOD SUGAR 184; COVERAGE GIVEN PER EMAR.
[2018-05-07] VITALS: BP 107/85
[2018-05-07 06:32] LABS: CREATININE 4.49 mg/dL (0.55-1.02); PHOSPHOROUS 2.6 mg/dL (2.5-4.9)
[2018-05-07 06:47] LABS: POTASSIUM 6.1 mmol/L (3.5-5.1)
--- NOTE | 2018-05-07 06:59 | NUR ---
RESIDENT MADE AWARE OF CRITICAL K. NO ORDERS AT THIS TIME. WILL CONTINUE TO MONITOR
[2018-05-07 08:00] VITALS: BP 110/60
[2018-05-07 08:42] VITALS: BP 110/60
--- NOTE | 2018-05-07 09:30 | NUR ---
PATIENT TRANSFERED TO 5TH FLOOR AT THIS TIME FOR DIALYSIS. REPORT GIVEN TO DIALYSIS NURSE.
--- NOTE | 2018-05-07 14:02 | NUR ---
PATIENT FINISHED WITH DIALYSIS. 3.2 KG REMOVED. NEXT DIALYSIS TREATMENT WILL BE WEDNESDAY.
[2018-05-07 16:00] VITALS: BP 100/48
--- NOTE | 2018-05-07 17:00 | NUR ---
WOUND DRESSINGS CHANGED AT THIS TIME PER ORDERS. PATIENT TOLERARED WELL.
[2018-05-07 20:00] VITALS: BP 102/44; BP 108/56
[2018-05-08] VITALS: BP 54/43
--- NOTE | 2018-05-08 01:26 | NUR ---
24 HR chart check completed.
[2018-05-08 06:48] LABS: BASO % 0.2 % (0.0-1.0); HEMATOCRIT 29.6 % (37.0-47.0); HEMOGLOBIN 8.9 g/dl (12.0-16.0); LYMPH # 0.4 10*3/uL (1.3-4.4); LYMPH % 6.4 % (27.0-41.0); MEAN CELL VOLUME 101.7 fl (81.0-99.0); MEAN CORPUSCULAR HGB 30.6 pg (27.0-31.0); MEAN CORPUSCULAR HGB CONC 30.1 g/dl (33.0-37.0); MEAN PLATELET VOLUME 10.7 fl (9.6-12.3); MONO # 0.2 10*3/uL (0.1-1.0); NEUT # 5.4 10*3/uL (2.3-7.9); NEUT % 88.7 % (47.0-73.0); PLATELET COUNT AUTOMATED 263 10*3/uL (130-400); RED BLOOD COUNT 2.91 10*6/uL (4.10-5.10); RED CELL DISTRI WIDTH 17.8 % (0-14.5); WHITE BLOOD COUNT 6.1 10*3/uL (4.8-10.8)
[2018-05-08 08:00] VITALS: BP 92/50
--- NOTE | 2018-05-08 09:04 | NUR ---
DR. VELOZ ON FLOOR TO SEE PATIENT AT THIS TIME. STATED TO ORDER A BMP NOW, AND IF PATIENTS POTASSIUM IS OVER 5.5 TO GIVE 30G OF KAYEXALATE.
[2018-05-08 10:42] LABS: CREATININE 3.46 mg/dL (0.55-1.02)
[2018-05-08 10:49] LABS: POTASSIUM 4.8 mmol/L (3.5-5.1)
[2018-05-08 12:00] VITALS: BP 111/69
--- NOTE | 2018-05-08 14:37 | NUR ---
WOUND DRESSINGS CHANGED AT THIS TIME PER PHYSICAN ORDERS.
[2018-05-08 16:00] VITALS: BP 110/93
[2018-05-08 20:00] VITALS: BP 100/50
--- NOTE | 2018-05-08 20:56 | NUR ---
24 HR chart check completed.
--- NOTE | 2018-05-08 22:34 | NUR ---
PATIENT RESTING IN BED WITH NO S/S OF DISTRESS. NO NEEDS MADE. BED IN LOWEST POSITION, CALL LIGHT IN REACH
[2018-05-09] VITALS: BP 111/59
--- NOTE | 2018-05-09 06:41 | NUR ---
RESTING IN BED WITH EYES CLOSED. RESPS EASY AND REGULAR. BED IN LOWEST POSITION, CALL LIGHT IN REACH, BED ALARM ON
--- NOTE | 2018-05-09 07:00 | NUR ---
BEDSIDE REPORT OBTAINED FROM ITA. PATIENT APPEARS TO BE ASLEEP, EYES CLOSED. NO S&S OF DISTRESS NOTED, RESP ARE ERND ON O2 2LPM NC. BED IS LOCKED IN LOWEST POSITION, ALARM MAINTAINED. CALL LIGHT LEFT WITHIN REACH.
[2018-05-09 08:00] VITALS: BP 144/80
--- NOTE | 2018-05-09 08:30 | NUR ---
Esthetician in to see patient. She is currently resting with her eyes closed. Resps even and unlabored. Will follow up at a later time.
--- NOTE | 2018-05-09 08:41 | NUR ---
WOUND CARE STATED THEY WOULD COMPLETED DRESSING CHANGES TO ALL WOUNDS.
--- NOTE | 2018-05-09 09:21 | NUR ---
YOSSI MULLINS [id number] Please refer to the physician's history and physical for past medical history, comorbid conditions, and allergies. Diagnosis: CHF,HOSPITAL ACQUIRED PNA,RENAL FAILURE,ATRIAL Chance Score: 14,MODERATE RISK WOUND DESCRIPTIONS: Location of the wound: right lateral griffiths Type of wound: surgical Thickness: Full Size: 2.3cm x 0.3cm x <0.1cm Tunneling: none Undermining: none Sinus Tract: none Presence of Exudate: none Amount: None Color: Brown, red Odor: None Periwound Skin Appearance: Normal Wound edges: approximated intact scab noted Pain (associated with wound): none at time of assessment How does patient state this happened? pt stated she had surgery Location of the wound: left groin Type of wound: surgical Thickness: Full Size: 5.7cm x 3.3cm x 0.8cm Tunneling: none Undermining: none Sinus Tract: none Presence of Exudate: Purulent Amount: Scant Color: Yellow, red, brown Odor: None Periwound Skin Appearance: Scarring Wound edges: approximated 3 sutures intact Pain (associated with wound): tender to touch How does patient state this happened? pt stated had surgery Location of the wound: right groin Type of wound: surgical Thickness: Full Size: 8.0cm x 11.0cm x 3.0cm Tunneling: none Underminin o'clock 1.0cm Sinus Tract: none Presence of Exudate: Purulent Amount: Scant Color: Yellow, red Odor: None Periwound Skin Appearance: Erythema Wound edges: approximated Pain (associated with wound): tender to touch How does patient state this happened? pt stated she had surgery Location of the wound: right forearm Type of wound: skin tear Thickness: Partial Size: 5.0cm x 3.5cm x 0.1cm Tunneling: none Undermining: none Sinus Tract: none Presence of Exudate: Serosanguineous Amount: Light Color: pink, yellow Odor: None Periwound Skin Appearance: Normal Wound edges: approximated Pain (associated with wound): none at time of assessment How does patient state this happened? pt is unsure how this happened Location of the wound: left buttocks Type of wound: stage 2 Thickness: Partial Size: 0.2cm x 0.2cm x 0.1cm Tunneling: none Undermining: none Sinus Tract: none Presence of Exudate: Serous Amount: Light Color: Red Odor: None Periwound Skin Appearance: erythema Wound edges: approximated Pain (associated with wound): none at time of assessment How does patient state this happened? none at time of assessment Location of the wound: abdomen Type of wound: surgical Thickness: Full Size: 17.0cm x 4.0cm x 2.2cm Tunneling: none Undermining: none Sinus Tract: none Presence of Exudate: Purulent Amount: Moderate Color: Yellow, pink, brown Odor: None Periwound Skin Appearance: Erythema Wound edges: approximated with 3 clear sutures Pain (associated with wound): tender to touch How does patient state this happened? pt stated she had surgery Location of the wound: right thigh Type of wound: skin tear Thickness: Partial Size: 0.9cm x 3.1cm x 0.1cm Tunneling: none Undermining: none Sinus Tract: none Presence of Exudate: Serous Amount: Light Color: Red Odor: None Periwound Skin Appearance: Scar Wound edges: approximated Pain (associated with wound): none at time of assessment How does patient state this happened? pt unable to state what happened Bilateral feet dry, scaly, flaky red and blanchable. No open areas noted. No drainage noted at time of assessment. Left medial lower extremity, left lateral lower extremity, right medial lower extremity healing surgical incision noted with several intact scabs noted. 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 Surface the patient is resting on: Position Pro SKIN PREVENTION RECOMMENDATION: 1. Pressure redistribution support surface as appropriate 2. Elevate heels 3. Remove boots/TEDS every shift and reapply 4. Head of bed 30 degrees as tolerated 5. Assess nutrition and hydration 6. Manage moisture 7. Avoid the use of containment devices while in bed 8. Use absorptive products on surfaces limit layers of linens on bed 9. Turn and reposition every 1-2 hours in bed and every 1 hour in chair as tolerated 10. Weight shifts every 15 minutes while up in chair 11. Offloading with pillows or device to keep heels elevated off bed 12. Monitor skin at least every shift 13. Inspect under medical devices twice a day WOUND TREATMENT RECOMMENDATIONS: Continue current orders.
--- NOTE | 2018-05-09 10:07 | NUR ---
Pt was identified by name and birthdate. Pt washed face & performed grooming with set up. Educated pt regarding diaphramatic breathing exercises & chest expansion exercises to enhance breathing. Pt required frequent rest periods during exercises & breathing techniques due to fatigue & coughing episodes during 30 min treatment. Continue with POC. Mary MADERA
--- NOTE | 2018-05-09 11:30 | NUR ---
HUMALOG NOT PROVIDED PATIENT DID NOT WANT ANYTHING TO EAT AT THIS TIME AND WILL BE GOING TO DIALYSIS.
--- NOTE | 2018-05-09 12:15 | NUR ---
ACCUCHEK NOT COMPLETED. PATIENT CURRENTLY IN DIALYSIS
--- NOTE | 2018-05-09 12:15 | NUR ---
PATIENT TAKEN TO DIAYLSIS.
--- NOTE | 2018-05-09 12:20 | NUR ---
Professional Nurse in to see patient. Discussed LTAC. Patient states I haven't seen my soon to talk to him about it. Asked if CM could call son and she agreed.
--- NOTE | 2018-05-09 12:22 | NUR ---
Spoke to patient's son, Danielito, at [phone] regarding possibility of an LTAC. He would like patient to return to [facility] short term.
--- NOTE | 2018-05-09 13:00 | NUR ---
PROCRIT TO BE GIVEN BY DIAYLSIS NURSE
--- NOTE | 2018-05-09 13:02 | NUR ---
PHYSICAL THERAPY Patient out of her room this pm for dialysis treatment and unavailable for therapy at this time. Will continue per POC as able. Oleksandr Joyce, SENIOR PROGRAMMER
[2018-05-09 17:10] VITALS: BP 98/44
--- NOTE | 2018-05-09 17:50 | NUR ---
LAB WORK PLACED FOR 05/10 PER NEPHROLOGY ORDERS.
--- NOTE | 2018-05-09 19:25 | NUR ---
TONIE REPORT FROM PREVIOUS NURSE.
[2018-05-09 20:00] VITALS: BP 113/54
--- NOTE | 2018-05-09 20:08 | NUR ---
PATIENT IS AAOX3 WITH EASY AND REGULAR RESPERS ON 2L O2 VIA NASAL CANNULA. ASSESSMENT IS COMPLETE WITH NO C/O OR S/S OF DISTRESS NOTED AT THIS TIME. BED IS LOW, LOCKED, ALARMED, AND CALL LIGHT IS WITHIN REACH. BEDISDE GLUCOSE 215. SEE SHIFT ASSESSMENT.
--- NOTE | 2018-05-09 22:21 | NUR ---
2200 MEDICATIONS GIVEN AT THIS TIME, PATIENT TOLERATED WELL. COLOSTOMY EMPTIED WELL WITH A BM OUTPUT OF 400ML. CALL LIGHT IS WITHIN REACH.
[2018-05-10] VITALS: BP 129/52
--- NOTE | 2018-05-10 01:18 | NUR ---
PATIENT IS RESTING IN BED WITH EASY AND REGULAR RESPERS ON 3L O2 VIA NC. NO C/O OR S/S OF DISTRESS NOTED. CALL LIGHT IS WITHIN REACH.
[2018-05-10 05:47] LABS: CREATININE 3.07 mg/dL (0.55-1.02); POTASSIUM 4.4 mmol/L (3.5-5.1)
[2018-05-10 05:49] LABS: BASO # 0.1 10*3/uL (0.0-0.1); BASO % 0.5 % (0.0-1.0); EOS % 0.3 % (1.0-4.0); HEMATOCRIT 29.7 % (37.0-47.0); HEMOGLOBIN 8.8 g/dl (12.0-16.0); LYMPH # 1.2 10*3/uL (1.3-4.4); LYMPH % 11.6 % (27.0-41.0); MEAN CELL VOLUME 103.1 fl (81.0-99.0); MEAN CORPUSCULAR HGB 30.6 pg (27.0-31.0); MEAN CORPUSCULAR HGB CONC 29.6 g/dl (33.0-37.0); MEAN PLATELET VOLUME 10.4 fl (9.6-12.3); MONO # 0.9 10*3/uL (0.1-1.0); MONO % 8.3 % (3.0-9.0); NEUT # 8.1 10*3/uL (2.3-7.9); NEUT % 78.4 % (47.0-73.0); PLATELET COUNT AUTOMATED 263 10*3/uL (130-400); RED BLOOD COUNT 2.88 10*6/uL (4.10-5.10); RED CELL DISTRI WIDTH 18.3 % (0-14.5); WHITE BLOOD COUNT 10.3 10*3/uL (4.8-10.8)
[2018-05-10 12:00] VITALS: BP 107/55
--- NOTE | 2018-05-10 15:10 | NUR ---
PT IS ASLEEP IN BED AT THIS TIME WITH NO SIGNS OR SYMPTOMS OF PAIN OR DISCOMFORT. SHE IS CURRENTLY AFIB ON THE MONITOR WITH A CONTROLLED RATE IN THE 80'S. MULTIPLE WOUND SITE DRESSINGS ARE IN PLACE, CLEAN/DRY AND INTACT. BED IS IN LOWEST POSITION AND CALL LIGHT IS WITHIN REACH. WILL CONTINUE TO MONITOR PT.
[2018-05-10 16:00] VITALS: BP 114/67
[2018-05-10 20:00] VITALS: BP 116/42
--- NOTE | 2018-05-10 20:23 | NUR ---
PATIENT C/O CHEST TIGHTNESS AND INABILITY TO BREATHE, VITAL SIGNS ARE WITHIN NORMAL LIMITS AND STAT EKG ORDERED AT THIS TIME.
--- NOTE | 2018-05-10 20:27 | NUR ---
SPOKE WITH DR. AMAYA REGARDING PATIENT C/O CHEST TIGHTNESS, SEE NEW ORDERS.
--- NOTE | 2018-05-10 21:45 | NUR ---
2200 MEDICATIONS GIVEN AT THIS TIME, PATIENT TOLERATED WELL. CALL LIGHT IS WITHIN REACH.
[2018-05-11] VITALS: BP 106/61
--- NOTE | 2018-05-11 06:40 | NUR ---
0600 AND 0730 MEDICATIONS GIVEN AT THIS TIME, PATIENT TOLERATED WELL. CALL LIGHT IS WITHIN REACH.
[2018-05-11 08:00] VITALS: BP 94/66
--- NOTE | 2018-05-11 08:30 | NUR ---
Nylon Machine Operator in to see patient. No new needs or request at this time. When medically stable and accepted she will be discharged to [facility]. community planner following.
--- NOTE | 2018-05-11 08:30 | NUR ---
24 HR chart check completed.
--- NOTE | 2018-05-11 08:52 | NUR ---
MADE S.S. AWARE OF THE NEED FOR PRECERT BACK TO [facility] SINCE PT HAS BEEN HERE SINCE 05/01.
--- NOTE | 2018-05-11 10:44 | NUR ---
PHYSICAL THERAPY Patient presented to therapy in supine with c/o not being able to breath and pain in the LEs. Patient is on 2 lters of spO2 via nasal canula. Patient agrees to therapy session. Patient was identified by name and . Patient performed supine to sitting at EOB with MAX A X 2. Patient O2 SAT checked and recorded as 85%. Patient sat at EOB with verbal cues for diaphramatic breathing and upright posture. Patient sat at EOB approx 5 minutes and then wanted to lie back down , complaining of not being able to breath. Patient was transferred back to supine in bed with MAX A X 2. Patient very anxious about her breathing. Previous O2 sats were 100% without activity. Patient was left in supine position in bed with call light within reach, bed alarm activated, and tray table bside patient's bed. Patient was attached to wall outlet with 2 liters of spO2. Patient was 1:1 with this LAW RESEARCHER for 15 minutes total. BLOSSOM MARINO LAW RESEARCHER
--- NOTE | 2018-05-11 10:45 | NUR ---
OT NOTE Pt was seen this A.M. 1:1 for 15 minute OT session. Upon arrival pt was supine in bed, pt identified by name and . Pt had complaints of "not being able to breathe", pt presented to therapy with continous 2L-O2 via NC and SpO2 WFL. Educated pt on breathing and realxation techniques. Pt then transferred supine to sit EOB with modA X 2. While sitting EOB challenged pt's sitting balance needed for increased I and enhanced safety in self care tasks and functional transfers and pt was able to maintain F-/F sitting balance throuhgout. Pt became very fatigued and anxious after sitting upright for aprox 5 minutes and was requesting to lay back down. Pt transferred sit to supine with maxA X 2. There she was left with call light in hand, tray table in place, and bed alarm activated for safety. Continue with rec D/C plan to SNF. CORY Chand/Tiki
[2018-05-11 12:00] VITALS: BP 90/40
--- NOTE | 2018-05-11 12:35 | NUR ---
Patient from [facility], short term skilled. Faxed clincals, PT/OT evals and notes, asked to start precert process for patient to return. Will wait for auth.
[2018-05-11 16:00] VITALS: BP 100/32
--- NOTE | 2018-05-11 16:10 | NUR ---
Bedside glu 52 , OJ w/ sugar and evelina crackers and milk given, states feelsa little shakey.
--- NOTE | 2018-05-11 18:09 | NUR ---
RECHECKED PATIENTS BLOOD GLUCOSE. IT IS NOW 92. PATIENT STATES SHE FEELS OKAY. PATIENT ATE 75% OF HER DINNER. WILL CONTINUE TO MONITOR.
--- NOTE | 2018-05-11 19:50 | NUR ---
PATIENT FOUND WITH NASAL CANNULA OUT OF NOSE. NC REAPPLIED. PATIENT ENCOURAGED TO TAKE DEEP BREATHS & TO FOCUS ON BREATHING. FINGERS COLD TO TOUCH. RN ATTEMPTED TO WARM. RESPIRATORY THERAPIST AT BEDSIDE. POX 95% ON 2.5 L NC. PATIENT PULLED UP AND REPOSITIONED IN BED FOR COMFORT. NO S/S OF DISTRESS NOTED AT THIS TIME. WILL CONTINUE TO MONITOR. CALL LIGHT LEFT IN REACH. BED ALARM INTACT.
[2018-05-11 20:00] VITALS: BP 100/51
[2018-05-12] VITALS (18 sets, daily range): BP systolic 42–142; BP diastolic 0–97
--- NOTE | 2018-05-12 00:47 | NUR ---
PATIENT ASLEEP IN BED. RESPIRATIONS EASY & UNLABORED. O2 IN USE VIA 2.5L NC. WILL MONITOR. CALL LIGHT LEFT IN REACH.
--- NOTE | 2018-05-12 03:22 | NUR ---
PATIENT'S COLOSTOMY BAG HAD LEAKED ON BED AND GOWN. COLOSTOMY SECURE HAD COME UNDONE. BAG CLEANED UP, CLOSED, AND REATTACHED. PATIENT CLEANED UP, NEW GOWN/LINENS PROVIDED. WOUND DRESSINGS CHANGED PER ORDERS. PT TOLERATED WELL. L BUTTOCKS: HYDROGEL, OPTIFOAM R MCCLOUD: THERAHONEY, OPTIFOAM R FOREARM: HYDROGEL, OPTIFOAM MUCOUS FISTULA: W^D, ABD R GROIN, L GROIN, ABD:W^D, ABD R FOREARM, L THIGH: HYDROGEL, OPTIFOAM PATIENT PULLED UP IN BED AND REPOSITIONED FOR COMFORT. O2 IN USE VIA 2.5 L NC. WILL MONITOR. BED LOCKED IN LOW POSITION, BED ALARM INTACT, CALL LIGHT IN REACH.
--- NOTE | 2018-05-12 03:28 | NUR ---
PATIENT'S COLOSTOMY BAG HAD LEAKED ON BED AND GOWN. COLOSTOMY SECURE HAD COME UNDONE. BAG CLEANED UP, CLOSED, AND REATTACHED. PATIENT CLEANED UP, NEW GOWN/LINENS PROVIDED. WOUND DRESSINGS CHANGED PER ORDERS. PT TOLERATED WELL. L BUTTOCKS: HYDROGEL, OPTIFOAM R MCCLOUD: THERAHONEY, OPTIFOAM R FOREARM: HYDROGEL, OPTIFOAM MUCOUS FISTULA: NON-ADHERENT R GROIN, L GROIN, ABD:W^D, ABD R FOREARM, L THIGH: HYDROGEL, OPTIFOAM PATIENT PULLED UP IN BED AND REPOSITIONED FOR COMFORT. O2 IN USE VIA 2.5 L NC. WILL MONITOR. BED LOCKED IN LOW POSITION, BED ALARM INTACT, CALL LIGHT IN REACH.
--- NOTE | 2018-05-12 06:02 | NUR ---
NOTIFIED OF PATIENT'S C/O NAUSEA WITH 2 BACK TO BACK EPISODES OF EMESIS. NEW ORDERS TO FOLLOW. PATIENT CLEANED UP/NEW GOWN PROVIDED.
--- NOTE | 2018-05-12 06:34 | NUR ---
IV ZOFRAN ADMINISTERED SLOWLY PER ONE TIME ORDER. GINGERALE ALSO GIVEN TO COMFORT PATIENT. PATIENT IS NO LONGER VOMITING. HOB RAISED, PATIENT REPOSITIONED SLIGHTLY ON L SIDE. WILL MONITOR. CALL LIGHT IN REACH. BED ALARM INTACT.
--- NOTE | 2018-05-12 07:35 | NUR ---
5MG IV LOPRESSOR GIVEN PER ORDER FOR HR 140'S. WILL MONITOR.
--- NOTE | 2018-05-12 08:00 | NUR ---
OT NOTE Attempted to see pt this A.M. for OT session and upon arrival pt was out of the room for dialysis. Will check back at a later time/date as able. CORY Chand/Tiki
--- NOTE | 2018-05-12 08:09 | NUR ---
notified dr. mckinney of pt's hr.
--- NOTE | 2018-05-12 08:30 | NUR ---
Real Estate Manager in to see patient. She is currently in dialysis. Will follow up at a later time.
--- NOTE | 2018-05-12 08:36 | NUR ---
PHYSICAL THERAPY Patient is presently in dialysis for treatment. Will check back with patient later. BLOSSOM MARINO DENTAL COORDINATOR
--- NOTE | 2018-05-12 08:45 | NUR ---
CALL FROM [facility], PT'S HR IN THE 40'S. [facility] WILL NOT BE DONE AT THIS TIME.
--- NOTE | 2018-05-12 09:11 | NUR ---
CARDIZEM DRIP STARTED PER ORDERS. 5MG IV BOLUS GIVEN. START DRIP AT 5MG PER HOUR.
--- NOTE | 2018-05-12 09:25 | NUR ---
CALLED TO PT'S ROOM, HR 160'S, POX 80'S, INCREASED O2 TO 5L NC. WILL MONITOR.
--- NOTE | 2018-05-12 09:45 | NUR ---
PT AAOX3. RESP RATE FAST AND SHALLOW. RESP RATE 30'S. PT ENCOURAGED TOTAKE DEEP SLOW BREATHS. LUNG FIEDLS DIM. PT ON PLACED ON 4L NC BECAUSE SHE WOULD NOT WEAR THE SIMPLE FACE MASK BECAUSE SHE SAID SHE COULD NOT BREATH WITH IT ON. POX 92% WHEN THERE IS A GOOD WAVE FORM. BP 142/97. TEMP 101.6 TYMPANIC. DRESSINGS DRY INTACT TO RIGHT ARM,ABD, BOTH GROINS AND RIGHT LOWER LEG. OSTOMY INTACT FOR GREENISH BROWN LIQUID BM. WILL CONTINUE TO MONITOR PT.
--- NOTE | 2018-05-12 09:45 | NUR ---
DR. LONDON NOTIFIED OF HR AND POX. ORDER GIVEN FOR PT TO BE TRANFFERED TO [facility].
--- NOTE | 2018-05-12 10:00 | NUR ---
Arterial blood gases drawn from right radial after 1 attempt. The procedure was explained to the patient. The Jl's test was performed with satisfactory results. The artery was palpated. Hssxdsr-lhjueybo-svzndgb prep to site. The specimen was obtained and sent to the lab on ice. Digital pressure applied x 5 minutes. Pressure dressing applied. No bleeding or hematoma. Pulses equal bilaterally. SISSY SAXENA
--- NOTE | 2018-05-12 10:05 | NUR ---
DR LONDON IN TO SEE PT. UPDATED HIM ON PT'S CONDITION. NEW ORDERS RECEIVED.
[2018-05-12 10:08] LABS: ABG HCO3 11.6 mmol/l (22-26); ABG O2 SATURATION 93.5 % (95-97); ARTERIAL BLOOD GAS PCO2 30.2 mmHg (35-45); ARTERIAL BLOOD GAS PH 7.22 (7.35-7.45); ARTERIAL BLOOD GAS PO2 92.1 mmHg (80-90)
[2018-05-12 10:09] LABS: ABG BASE EXCESS -14.3 mmol/L (-2.0-2.0)
--- NOTE | 2018-05-12 10:10 | NUR ---
PT NOT RESPONDING TO VERBAL STIMULI. PT HAS A BLANK STARE. SBP 50'S. ASSISTANT STRENGTH COACH,ROSA HERE AND AWARE OF PT'S CHANGE IN CONDITION.
--- NOTE | 2018-05-12 10:25 | NUR ---
RAPID RESPONSE CALLED AT THIS TIME DUE TO PT BECOMING UNRESPONSIVE, BP DROPPED TO 50'S SYSTOLIC. CARDIZEM GTT STOPPED IMMEDIATLEY. RESP RATE 40. SMALL SHALLOW BREATHING. DR LUTHER ORDERED FLUID BOLUS TO BE GIVEN. DR LONDON IN THE HOSPITAL AND RESPONDED TO RAPID RESPONSE ALSO. SON MARTIN WAS CALLED AND DID VERBALIZE THAT YES PT IS BE TO A DNRCCA WITH NO INTUBATION.
[2018-05-12 10:40] LABS: HEMATOCRIT 34.2 % (37.0-47.0); HEMOGLOBIN 10.4 g/dl (12.0-16.0); MEAN CELL VOLUME 103.6 fl (81.0-99.0); MEAN CORPUSCULAR HGB 31.5 pg (27.0-31.0); MEAN CORPUSCULAR HGB CONC 30.4 g/dl (33.0-37.0); MEAN PLATELET VOLUME 10.8 fl (9.6-12.3); PLATELET COUNT AUTOMATED 173 10*3/uL (130-400); RED CELL DISTRI WIDTH 19.2 % (0-14.5); WHITE BLOOD COUNT 3.5 10*3/uL (4.8-10.8)
[2018-05-12 10:56] LABS: CREATININE 6.35 mg/dL (0.55-1.02); TOTAL PROTEIN 5.5 gm/dL (6.4-8.2)
[2018-05-12 10:59] LABS: POTASSIUM 7.3 mmol/L (3.5-5.1)
--- NOTE | 2018-05-12 11:03 | NUR ---
PT'S GLUCOSE 49. AMP OF D50 GIVEN. PT REMAINS UNRESPONSIVE AT THIS TIME. FAMILY WITH PT AT BEDSIDE.
--- NOTE | 2018-05-12 11:06 | NUR ---
DR LONDON CALLED AGAIN AT THIS TIME TO MAKE HIM AWARE OF PT'S LABS AND HER CONTINUED HYPOTENSION. ORDER FOR LEVOPHED GTT RECIEVED.
--- NOTE | 2018-05-12 11:15 | NUR ---
LEVOPHED GTT STARTED AT THIS TIME AT 10MCG/MIN. FAMILY AT BEDSIDE WITH DR LONDON AND THEY STATED AGAIN THAT PT DOES NOT WANT TO BE INTUBATED BUT DID AGREE TO BIPAP AT THIS TIME.
[2018-05-12 11:17] LABS: TOTAL CELLS COUNTED 100 #CELLS
[2018-05-12 11:18] LABS: PLATELET SUFFICIENCY NORMAL (NORMAL); POLYCHROMASIA SLIGHT; VACUOLATION OF NEUTROPHILS SLIGHT
--- NOTE | 2018-05-12 11:27 | NUR ---
PAGED DR MANCILLA TO UPDATE HIM ON PT'S CONDIITON AND LAB RESULTS.
--- NOTE | 2018-05-12 11:30 | NUR ---
PT PLACED ON BIPAP PER RESPIRATORY THERAPY AT THIS TIME. POX IMMEDIALTY UP TO 98-99% ON 80% O2.
--- NOTE | 2018-05-12 11:45 | NUR ---
DR MANCILLA UPDATED ON PT'S CONDITIONA ND PLAN OF CARE. DR MANCILLA WANTS PT TO HAVE DIALYSIS TOADAY IF SHE STABILIZES. SPOKE WITH DIALYSIS NURSE AND I WILL CALL HER BACK WITH A PT UPDATE IN AN HOUR. PT IS MORE AWAKE AND MOVING AROUND IN THE BED. PT'S FAMILY AT BEDSIDE.
--- NOTE | 2018-05-12 11:53 | NUR ---
LEVOPHED GTT INCREASED TO 15MCG/MIN AND BP UP TO 105/62 AT THIS TIME.
--- NOTE | 2018-05-12 11:58 | NUR ---
DR LONDON UPDATED ON CRITICAL CXR FINDINGS FROM [facility]. I ALSO UPDATED DR ISABEL ON PT'S ANABEL AND PLAN FOR DIALYSIS TODAY. NO OTHER ORDERS RECEIVED AT THIS TIME.
--- NOTE | 2018-05-12 12:10 | NUR ---
DR LONDON VIWED MOST RECENT EKG. DR LONDON IN TO SEE PT AND SPOKE WITH PT'S FAMILY R/T PT'S CONDITION AND PLAN OF CARE.
--- NOTE | 2018-05-12 12:40 | NUR ---
DOCTORS AWARE ON DIFFICUTLY OBTAINING ACCURATE BP. CALLED DR Linnea STOKES TO REQUEST AN ART LINE. DR Linnea STOKES TO CALL DR DAVIS TO PLACE AN ARTERIAL LINE.
--- NOTE | 2018-05-12 12:41 | NUR ---
PHYSICAL THERAPY PAtient to [facility]. Please re-order when medically appropriate. Bethanie Carrion,PT PHYSICAL THERAPY CO-SIGN I approve of the Phyical Therapy notes written above. BETHANIE CARRION PT
--- NOTE | 2018-05-12 12:42 | NUR ---
PHYSICAL THERAPY CO-SIGN I approve of the Phyical Therapy notes written above. RAZA CARRION PT
--- NOTE | 2018-05-12 12:45 | NUR ---
DR DAVIS WILL PLACE ART LINE AFTER [facility] CLOSES TODAY.
--- NOTE | 2018-05-12 12:54 | NUR ---
TRIED TO CALL DR CLIFFORD TO UPDATE HER ON PT'S CHANGE IN CONDITION BUT PHONE LINE IS BUSY. WILL TRY AGAIN LATER.
--- NOTE | 2018-05-12 12:55 | NUR ---
DR Linnea STOKES HERE AND SUGGESTED TO CALL [facility] FOR ART LINE. CALLED DR LUCIANO AND HE WILL BE UP TO PLACE ARTERIAL LINE.
--- NOTE | 2018-05-12 14:00 | NUR ---
DR LUCIANO HERE FOR ART LINE INSERTION.
--- NOTE | 2018-05-12 14:35 | NUR ---
DR Linnea STOKES DISCUSSED PT'S GRAVE CONDIION WITH PT'S FAMILY. CODE STATUS CHANGED TO DNRCC. DR LUCIANO WAS UNABLE TO OBTAIN ARTERIAL LINE. AFTER CODE STATUS CHANGED HE STOPPED TRYING FOR ARTERIAL LINE. PT'S FAMILY REFUSED HOSPICE AT THIS TIME.
--- NOTE | 2018-05-12 14:53 | NUR ---
PT ASYSTOLE ON THE MONITOR. NO RESPIRATIONS. DR Linnea STOKES IN [facility] AND TIME OF CALLED AT 1453. FAMILY AT BEDSIDE AT TIME OF . INCUBATOR OPERATOR ROSA Chery AND DR LONDON NOTIFIED.
--- NOTE | 2018-05-12 15:12 | NUR ---
TAVERN KEEPER, DR MANCILLA AND DIALYSIS NURSE NOTIFIED OF PT'S . ONE CALL ALSO NOTIFIED.
--- NOTE | 2018-05-12 15:13 | NUR ---
HARISH AT [facility] AWARE OF PT'S FAMILY WANTING TO USE THEIR SERVICES FOR ARRANGEMENTS.
--- NOTE | 2018-05-12 15:18 | NUR ---
Per Dontrell at [facility] patient is approved to go to [facility]. information systems planner aware.
--- NOTE | 2018-05-12 15:38 | NUR ---
DR VELOZ, DR. TREJO, DR EARL, AND BROOK FROM [facility]. NOTIFIED OF PT'S .
--- NOTE | 2018-05-12 15:43 | NUR ---
FAMILY IN TO VIEW BODY. WHEN THEY LEFT THEY STATED THAT NO ONE ELSE SHOULD BE COMING. [facility] NOTIFIED THEY COULD ASSIGNMENT DESK EDITOR THE BODY. MORTUARY PAPERS COMPLETED WITH FAMILY EARLIER.
--- NOTE | 2018-05-12 17:00 | NUR ---
BODY RELEASED TO [facility]IA [facility]. PT'S GLASSES SENT WITH PT.
--- NOTE | 2018-05-16 08:15 | NUR ---
Patient transferred to [facility] 05/12/18. Please reorder OT as indicated when stable. Makayla Le OTR/L
== END 2018-05-12 17:00 | disposition expired | DRG 853 ==
LOC: ED 21:15 → EDHOLD 22:59 → 5E 22:59 → ICCU 22:59 → 5E 23:39 → ICCU 05-02 02:04 → 4E 05-06 16:41 → ICCU 05-12 10:02 → 4E 05-12 10:02 → ICCU 05-12 10:02
PROVIDERS: Emergency Medicine; Internal Medicine Cardiovascular Disease; Internal Medicine Critical Care Medicine; Internal Medicine Nephrology; Student in an Organized Health Care Education/Training Program; ADMIT Internal Medicine
PROC: 5A1D70Z Performance of Urinary Filtration, Intermittent, Less than 6 Hours Per Day (ICD-10-PCS; principal; 2018-05-02)
PROC: 0JBL0ZZ Excision of Right Upper Leg Subcutaneous Tissue and Fascia, Open Approach (ICD-10-PCS; principal; 2018-05-02)
PROC: 0JB80ZZ Excision of Abdomen Subcutaneous Tissue and Fascia, Open Approach (ICD-10-PCS; principal; 2018-05-02)
PROC: 0JBM0ZZ Excision of Left Upper Leg Subcutaneous Tissue and Fascia, Open Approach (ICD-10-PCS; principal; 2018-05-02)
PROC: 5A1D70Z Performance of Urinary Filtration, Intermittent, Less than 6 Hours Per Day (ICD-10-PCS; 2018-05-03)
PROC: 06HY33Z Insertion of Infusion Device into Lower Vein, Percutaneous Approach (ICD-10-PCS; 2018-05-03)
PROC: 5A1D70Z Performance of Urinary Filtration, Intermittent, Less than 6 Hours Per Day (ICD-10-PCS; 2018-05-05)
PROC: 5A1D70Z Performance of Urinary Filtration, Intermittent, Less than 6 Hours Per Day (ICD-10-PCS; 2018-05-07)
PROC: 4A133B1 Monitoring of Arterial Pressure, Peripheral, Percutaneous Approach (ICD-10-PCS; 2018-05-12)
PROC: 5A09357 Assistance with Respiratory Ventilation, Less than 24 Consecutive Hours, Continuous Positive Airway Pressure (ICD-10-PCS; 2018-05-12)
PROC: 4A133J1 Monitoring of Arterial Pulse, Peripheral, Percutaneous Approach (ICD-10-PCS; 2018-05-12)
DX: A41.9 Sepsis, unspecified organism (principal); R65.21 Severe sepsis with septic shock; J96.21 Acute and chronic respiratory failure with hypoxia; J96.22 Acute and chronic respiratory failure with hypercapnia; E43 Unspecified severe protein-calorie malnutrition; I50.33 Acute on chronic diastolic (congestive) heart failure; N18.6 End stage renal disease; J69.0 Pneumonitis due to inhalation of food and vomit; N39.0 Urinary tract infection, site not specified; E87.1 Hypo-osmolality and hyponatremia; E87.2 Acidosis; F03.91 Unspecified dementia, unspecified severity, with behavioral disturbance; R31.9 Hematuria, unspecified; S71.102A Unspecified open wound, left thigh, initial encounter; Z66 Do not resuscitate; J45.909 Unspecified asthma, uncomplicated; I46.9 Cardiac arrest, cause unspecified; Z51.5 Encounter for palliative care; E11.22 Type 2 diabetes mellitus with diabetic chronic kidney disease; K21.9 Gastro-esophageal reflux disease without esophagitis; E66.01 Morbid (severe) obesity due to excess calories; L89.151 Pressure ulcer of sacral region, stage 1; S71.101A Unspecified open wound, right thigh, initial encounter; S31.109A Unspecified open wound of abdominal wall, unspecified quadrant without penetration into peritoneal cavity, initial encounter; E87.5 Hyperkalemia; E87.8 Other disorders of electrolyte and fluid balance, not elsewhere classified; E11.65 Type 2 diabetes mellitus with hyperglycemia; J42 Unspecified chronic bronchitis; I48.2 Chronic atrial fibrillation; E55.9 Vitamin D deficiency, unspecified; D53.9 Nutritional anemia, unspecified; E53.8 Deficiency of other specified B group vitamins; E87.6 Hypokalemia; F17.210 Nicotine dependence, cigarettes, uncomplicated; Z79.84 Long term (current) use of oral hypoglycemic drugs; I25.2 Old myocardial infarction; Z82.49 Family history of ischemic heart disease and other diseases of the circulatory system; Z82.3 Family history of stroke; Z86.73 Personal history of transient ischemic attack (TIA), and cerebral infarction without residual deficits; Z83.3 Family history of diabetes mellitus; Z90.49 Acquired absence of other specified parts of digestive tract; Z88.2 Allergy status to sulfonamides; Z79.4 Long term (current) use of insulin; Z90.710 Acquired absence of both cervix and uterus; Z68.31 Body mass index [BMI] 31.0-31.9, adult